=== PATIENT | male | born 1960 | race Two or more races ===

== ENCOUNTER 2016-11-30 09:09 | Inpatient (IN) | payer OTHER ==
[2016-11-30 10:25] VITALS: BMI 19.0
--- NOTE | 2016-11-30 11:29 | HP ---
CIWA Score - CIWA Score Nausea/Vomitin Muscle Tremors: 4-Moderate,w/Arms Extend Anxiety: 4-Mod. Anxious/Guarded Agitation: 4-Moderately Restless Paroxysmal Sweats: 3 Orientation: 0-Oriented Tacttile Disturbances: 1-Very Mild Itch/Numbness Auditory Disturbances: 0-None Visual Disturbances: 0-None Headache: 1-Very Mild CIWA-Ar Total Score: 20 Admission ROS S - HPI Chief Complaint: alcohol withdrawal sx Allergies/Adverse Reactions: Allergies Allergy/AdvReac Type Severity Reaction Status Date / Time No Known Allergies Allergy Verified 11/30/16 10:33 History of Present Illness: 56 yo m with h/o chronic alcoholism, nicotine depenedence <10/day was last at [facility] over 1 year ago but had h/o repeatedly signing out AMA. went to [facility] yesterday with hallucinations, was given benzodiazepines over night and transferred to inpatient for detox this AM. Patient wishes to complete detox PMHx s/p chemo for stomach ca 2000, s/p trauma w chronic pain back. hip and knee replacements, plates in jaw, r leg and facial fx, HTN, asthma , COPD, schizoaffective do, homeless at present, not taking medication as prescribed however bp WNL and will hold bp meds for now. when he does not drink develops FELIPE, no h/o seizures or DTS in past. reports recent wt loss and occasional blackouts. Exam Limitations: No Limitations - Ebola screening Have you traveled outside of the country in the last 21 days: No Have you had contact with anyone from an Ebola affected area: No Have you been sick,other than usual withdrawal symptoms: No Do you have a fever: No - Review of Systems Constitutional: Diaphoresis, Unintentional Wgt. Loss EENT: reports: No Symptoms Reported Respiratory: reports: Cough (smokers cough), SOB with Exertion, Wheezing (from asthma) Cardiac: reports: No Symptoms Reported GI: reports: Nausea, Poor Appetite, Poor Fluid Intake, Indigestion, Abdominal cramping : reports: No Symptoms Reported Musculoskeletal: reports: Back Pain (chroniclbp, disc disease,/arthritis), Joint Pain (right hip fx and r knee fx, s/p Trauma), Muscle Pain Integumentary: reports: Other (severe scarring right leg from trauma) Neuro: reports: Headache, Numbness, Paresthesia, Tingling, Tremors, Weakness Endocrine: reports: No Symptoms Reported Hematology: reports: No Symptoms Reported Psychiatric: reports: Judgement Intact, Mood/Affect Appropiate, Orientated x3, Anxious, Depressed Other Systems: Reviewed and Negative Patient History - Patient Medical History Hx Anemia: No Hx Asthma: Yes Hx Chronic Obstructive Pulmonary Disease (COPD): Yes Hx Cancer: Yes (STOMACH CHEMO RX.?) Hx Cardiac Disorders: No Hx Congestive Heart Failure: No Hx Hypertension: Yes Hx Hypercholesterolemia: No Hx Pacemaker: No HX Cerebrovascular Accident: No Hx Seizures: No Hx Dementia: No Hx Diabetes: No Hx Gastrointestinal Disorders: No Hx Liver Disease: No Hx Genitourinary Disorders: No Hx Sexually Transmitted Disorders: No Hx Renal Disease (ESRD): No Hx Thyroid Disease: No Hx Human Immunodeficiency Virus (HIV): No Hx Hepatitis C: No Hx Depression: Yes Hx Suicide Attempt: No Hx Bipolar Disorder: No Hx Schizophrenia: No - Patient Surgical History Past Surgical History: Yes Hx Neurologic Surgery: No Hx Cataract Extraction: No Hx Cardiac Surgery: No Hx Lung Surgery: No Hx Breast Surgery: No Hx Breast Biopsy: No Hx Abdominal Surgery: No Hx Appendectomy: No Hx Cholecystectomy: No Hx Genitourinary Surgery: No Hx Section: No Hx Orthopedic Surgery: Yes (R hip and R knee replacement) Other Surgical History: FX. JAW S/P PLATE AND SCREWS Anesthesia Reaction: No - PPD History Previous Implant?: Yes Documented Results: Negative w/proof Implanted On Prior [facility] Admission?: Yes Date: 04/27/15 Results: 0 mm PPD to be Administered?: Yes - Reproductive History Patient is a Female of Child Bearing Age (11 -55 yrs old): No Patient : No - Smoking Cessation Smoking history: Current every day smoker Have you smoked in the past 12 months: Yes Aproximately how many cigarettes per day: 10 Cigars Per Day: 0 Hx Chewing Tobacco Use: No Initiated information on smoking cessation: Yes 'Breaking Loose' booklet given: 11/30/16 - Substance & Tx. History Hx Alcohol Use: Yes Hx Substance Use: Yes Substance Use Type: Alcohol, Opiates Hx Substance Use Treatment: Yes ([facility] 1 year ago) - Substances Abused Alcohol Route: Oral Frequency: Daily Amount used: beer(12-24 oz cans)/vodka 2pints Age of first use: 11 Date of Last Use: 11/29/16 Marijuana/Hashish Route: Smoking Frequency: Daily Amount used: $20 Age of first use: 11 Date of Last Use: 11/28/16 Family Disease History - Family Disease History Family Disease History: CA: Mother (STOMACH), Sister (STOMACH) Admission Physical Exam [facility] - Vital Signs Vital Signs: Vital Signs - 24 hr 11/30/16 10:22 Temperature 96.8 F L Pulse Rate 81 Respiratory 18 Rate Blood Pressure 134/81 - Physical General Appearance: Yes: Disheveled, Mild Distress, Alcohol on Breath, Thin, Tremorous, Irritable, Sweating, Anxious HEENTM: Yes: EOMI, Hearing grossly Normal, Normal ENT Inspection, Normal Voice, AKIN, Pharynx Normal, Other (abrasions r forehead, no sign of infection) Respiratory: Yes: Within Normal Limits, Chest Non-Tender, Lungs Clear, Normal Breath Sounds, No Respiratory Distress, No Accessory Muscle Use Neck: Yes: Within Normal Limits, No masses,lesions,Nodules, Supple, Trachea in good position Breast: Yes: Breast Exam Deferred Cardiology: Yes: Within Normal Limits, Regular Rhythm, Regular Rate, S1, S2 Abdominal: Yes: Within Normal Limits, Normal Bowel Sounds, Non Tender, Flat Genitourinary: Yes: Within Normal Limits Back: Yes: Decreased Range of Motion, Muscle Spasm, Vertebral Tenderness Musculoskeletal: Yes: full range of Motion, Gait Steady, Pelvis Stable, Back pain, Joint Stiffness Extremities: Yes: Normal Capillary Refill, Normal Inspection, Normal Range of Motion, Non-Tender, Tremors (felt), Other (scarring r leg) Neurological: Yes: infrastructure consultant 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 NML intact, Fully Oriented, Alert, Motor Strength 5/5, Normal Response, Depressed Affect Integumentary: Yes: Normal Color, Dry, Warm Lymphatic: Yes: Within Normal Limits - Addiitonal Findings: alcohol withdrawal sx - Diagnostic (1) Alcohol dependence with uncomplicated withdrawal Current Visit: Yes Status: Chronic (2) Drug-induced mood disorder Current Visit: Yes Status: Acute (3) Marihuana dependence Current Visit: Yes Status: Chronic (4) Alcohol-induced sleep disorder Current Visit: No Status: Chronic (5) Asthma Current Visit: No Status: Chronic Qualifiers: Asthma severity: mild intermittent Asthma complication type: uncomplicated (6) COPD (chronic obstructive pulmonary disease) Current Visit: Yes Status: Chronic Qualifiers: Chronic bronchitis type: simple (7) Injury of left lower extremity Current Visit: No Status: Chronic Qualifiers: Encounter type: sequela Qualified Code(s): S89.92XS - Unspecified injury of left lower leg, sequela; S89.92XS - Unspecified injury of left lower leg, sequela (8) Nicotine dependence Current Visit: No Status: Chronic Qualifiers: Nicotine product type: cigarettes Substance use status: uncomplicated Qualified Code(s): F17.210 - Nicotine dependence, cigarettes, uncomplicated ; F17.210 - Nicotine dependence, cigarettes, uncomplicated (9) Schizoaffective disorder Current Visit: Yes Status: Chronic (10) Syncope Current Visit: No Status: Chronic (11) Weight loss Current Visit: Yes Status: Acute BHS Breath Alcohol Content Breath Alcohol Content: 0.184 Urine Drug Screen - Results Drug Screen Negative: No Urine Drug Screen Results: THC-Marijuana, BZO-Benzodiazepines
[2016-11-30] MEDS ORDERED: P-EPHED 60MG/TRIPROLIDI 2.5MG TABLET PO PRN (11:34)
[2016-11-30] MEDS ORDERED: MAGNESIUM HYDROX 2400MG/30ML ORAL SUSPENSION 30 ML CUP PO PRN (11:34)
[2016-11-30] MEDS ORDERED: MAG HYDROX/AL HYDROX/SIMETH 30 ML UNIT-DOSE CUP PO PRN (11:34)
[2016-11-30] MEDS ORDERED: NICOTINE POLACRILEX 2 MG GUM BUC PRN (11:34)
[2016-11-30] MEDS ORDERED: MENTHOL/PHENOL 1 EACH UD MM PRN (11:34)
[2016-11-30] MEDS ORDERED: guaiFENesin/D-METHORPHAN HB 10 ML UNIT-DOSE CUPS PO PRN (11:34)
[2016-11-30] MEDS ORDERED: MAGNESIUM CITRATE 300 ML BOTTLE PO PRN (11:34)
[2016-11-30] MEDS ORDERED: LOPERAMIDE HCL 2 MG CAPSULE PO PRN (11:34)
[2016-11-30] MEDS ORDERED: IBUPROFEN 400 MG TABLET (FP) PO PRN (11:34)
[2016-11-30] MEDS ORDERED: hydrOXYzine PAMOATE 50 MG CAPSULE (FP) PO PRN (11:34)
[2016-11-30] MEDS ORDERED: ALBUTEROL SO4 18 GM HFA INHALER IH PRN (11:36)
[2016-11-30] MEDS ORDERED: ALBUTEROL SO4 2.5/IPRATROPIUM 0.5 INH SOL 3 ML VIAL.NEB. NEB PRN (11:53)
[2016-11-30] MEDS: chlordiazePOXIDE HCL 25 MG CAPSULE PO PRN (13:10)
[2016-11-30] MEDS: BUDESONIDE/FORMETEROL FUMARATE 160/4.5 mcg INHALER IH SCH ×2 (13:10→22:10)
[2016-11-30] MEDS: NICOTINE 14 MG/24 HOURS TOPICAL PATCH TD SCH (13:13)
[2016-11-30] MEDS: BACITRACIN 15 GM TUBE TOPICAL OINTMENT TP SCH (13:14)
[2016-11-30 17:53] LABS: URINE APPEARANCE SLCLOUDY; URINE BILIRUBIN NEGATIVE (NEGATIVE); URINE BLOOD 1+ (NEGATIVE); URINE COLOR YELLOW; URINE GLUCOSE (UA) NEGATIVE (NEGATIVE); URINE KETONE 1+ (NEGATIVE); URINE LEUK ESTERASE NEGATIVE (NEGATIVE); URINE NITRITE NEGATIVE (NEGATIVE); URINE PROTEIN NEGATIVE (NEGATIVE); URINE UROBILINOGEN NEGATIVE mg/dL (0.2-1.0)
[2016-11-30 17:57] LABS: URINE MUCUS RARE; URINE WBC 2 /hpf (3-5)
[2016-11-30] MEDS: chlordiazePOXIDE HCL 25 MG CAPSULE PO SCH ×2 (18:06→22:12)
[2016-11-30] MEDS: ACETAMINOPHEN 325 MG TABLET (FP) PO PRN (20:16)
[2016-11-30] MEDS: THIAMINE HCL 100 MG TABLET (FP) PO SCH (22:10)
[2016-11-30] MEDS: diphenhydrAMINE HCL 50 MG CAPSULE PO PRN (22:13)
[2016-12-01] MEDS: chlordiazePOXIDE HCL 25 MG CAPSULE PO SCH ×4 (05:55→22:16)
[2016-12-01 10:12] LABS: MCH 28.9 pg (25.7-33.7); MCHC 33.9 g/dl (32.0-35.9); MEAN CELL VOLUME 85.4 fl (80-96); MEAN PLT VOLUME 8.6 fl (7.5-11.1); PLATELET COUNT 288 K/MM3 (134-434); RDW 16.1 % (11.9-15.9); WHITE BLOOD COUNT 5.2 K/mm3 (4.0-10.0)
[2016-12-01] MEDS: PRENATAL VITAMINS W/ FOLIC ACID TABLET (FP) PO SCH (10:19)
[2016-12-01] MEDS: BUDESONIDE/FORMETEROL FUMARATE 160/4.5 mcg INHALER IH SCH ×3 (10:19→22:16)
[2016-12-01] MEDS: NICOTINE 14 MG/24 HOURS TOPICAL PATCH TD SCH (10:20)
[2016-12-01 10:32] LABS: ALBUMIN 3.4 g/dl (3.4-5.0); ALK PHOS 74 U/L (45-117); ANION GAP 4 (8-16); BILIRUBIN,TOTAL 0.9 mg/dL (0.2-1.0); CALCIUM 8.9 mg/dL (8.5-10.1); CO2 30 mmol/L (21-32); CREATININE 0.8 mg/dL (0.7-1.3); GLUCOSE,RANDOM 88 mg/dL (74-106); SGOT/AST 15 U/L (15-37); SGPT/ALT 20 U/L (12-78); TOT PROT 6.7 g/dl (6.4-8.2)
--- NOTE | 2016-12-01 11:05 | PN ---
S CIWA - CIWA Score Nausea/Vomitin Muscle Tremors: 4-Moderate,w/Arms Extend Anxiety: 4-Mod. Anxious/Guarded Agitation: 4-Moderately Restless Paroxysmal Sweats: 3 Orientation: 0-Oriented Tacttile Disturbances: 1-Very Mild Itch/Numbness Auditory Disturbances: 0-None Visual Disturbances: 0-None Headache: 1-Very Mild CIWA-Ar Total Score: 20 BHS Progress Note (SOAP) Subjective: nausea, sweats, interrupted sleep, anxeity, tremors Objective: 12/01/16 11:02 Vital Signs - 8 hr 12/01/16 12/01/16 12/01/16 03:24 06:20 09:00 Temperature 96.9 F L 97.6 F Pulse Rate 78 76 Respiratory 20 18 18 Rate Blood Pressure 169/95 152/92 Laboratory Tests 11/30/16 12/01/16 12/01/16 17:00 07:30 07:30 WBC 5.2 RBC 3.75 L Hgb 10.8 L D Hct 32.0 L MCV 85.4 MCH 28.9 MCHC 33.9 RDW 16.1 H D Plt Count 288 MPV 8.6 Sodium 141 Potassium 3.7 Chloride 107 Carbon Dioxide 30 Anion Gap 4 L BUN 22 H D Creatinine 0.8 Creat Clearance w eGFR > 60 Random Glucose 88 Calcium 8.9 Total Bilirubin 0.9 D AST 15 D ALT 20 D Alkaline Phosphatase 74 Total Protein 6.7 Albumin 3.4 Urine Color Yellow Urine Appearance Slcloudy Urine pH 5.0 Ur Specific [place] >= 1.030 H Urine Protein Negative Urine Glucose (UA) Negative Urine Ketones 1+ H Urine Blood 1+ H Urine Nitrite Negative Urine Bilirubin Negative Urine Urobilinogen Negative Urine RBC None Urine WBC 2 Ur Epithelial Cells Rare Urine Mucus Rare hypertensive, anemia Assessment: 12/01/16 11:02 withdrawal sx, anemai, hypertension Plan: cont detox, fluids, start iron supplements with laxative at night, ensure
[2016-12-01] MEDS: BACITRACIN 15 GM TUBE TOPICAL OINTMENT TP SCH (11:19)
--- NOTE | 2016-12-01 12:02 | EKG ---
Test Reason : Blood Pressure : / mmHG Vent. Rate : 088 BPM Atrial Rate : 088 BPM P-R Int : 132 ms QRS Dur : 096 ms QT Int : 384 ms P-R-T Axes : 080 068 078 degrees QTc Int : 464 ms NORMAL SINUS RHYTHM MODERATE VOLTAGE CRITERIA FOR LVH, MAY BE NORMAL VARIANT BORDERLINE ECG NO PREVIOUS ECGS AVAILABLE Confirmed by SHANTEL INMAN MD ([id number]) on 12/01/2016 12:01:57 PM Referred By: Confirmed By:SHANTEL INMAN MD
[2016-12-01] MEDS: BACITRACIN 0.9 GM PACKET TP SCH (12:08)
--- NOTE | 2016-12-01 12:26 | CONSULT ---
[facility] Psychiatric Consult - Data Date of interview: 12/01/16 Admission source: [facility] Identifying data: Another admission to [facility] for this 56 y/o AA male seeking detox treatment on for alcohol and marijuana dependence.Patient is in a common-law relationship,no children of his own,domiciled,unemployed and supported on Public Assistance. Substance Abuse History: Discussed with the patient in this session.Confirmed. Smoking Cessation. Smoking history: Current every day smoker. Have you smoked in the past 12 months: Yes. Aproximately how many cigarettes per day: 10. Cigars Per Day: 0. Hx Chewing Tobacco Use: No. Initiated information on smoking cessation: Yes. 'Breaking Loose' booklet given: 11/30/16. - Substance & Tx. History. Hx Alcohol Use: Yes. Hx Substance Use: Yes. Substance Use Type : Alcohol, Opiates. Hx Substance Use Treatment: Yes ([facility] 1 year ago). - Substances Abused. Alcohol. Route: Oral. Frequency: Daily. Amount used: beer(12-24 oz cans)/vodka 2pints. Age of first use: 11. Date of Last Use: . Marijuana/Hashish. Route: Smoking. Frequency: Daily. Amount used: $20. Age of first use: 11. Date of Last Use: 11/28/16 Medical History: Bronchial asthma,hypertension,COPD,GERD,lower back pain,past history of chemotherapy for gastric cancer (2000),orthosurgery for fracture of right leg + facial bones (plates and screws still in jaw) and a history of right hip + knee replacements. Psychiatric History: Extended history of psychiatric illness.Diagnosed with Schizoaffective Disorder.Prescribed abilify 10 mg/day (confirmed by pharmacy claims of 11/24/16 at [facility]).No prior history of psychiatric hospitalizations.OPD care is reportedly dispensed at [facility] in the [place].Mr Ham endorses a history of chronic insomnia and he indicates that 50 mg of seroquel at bedtime is an effective intervention.No history of suicide attempts. Physical/Sexual Abuse/Trauma History: No reported history of abuse. Additional Comment: Urine Drug Screen Results: THC-Marijuana, BZO- Benzodiazepines.Noted. Mental Status Exam - Mental Status Exam Alert and Oriented to: Time, Place, Person Cognitive Function: Good Patient Appearance: Unkempt, Disheveled Mood: Nervous, Withdrawn Affect: Mood Congruent Patient Behavior: Fatigued, Cooperative (marginally cooperative) Speech Pattern: Clear Voice Loudness: Normal Thought Process: Goal Oriented Thought Disorder: Not Present Hallucinations: Denies Suicidal Ideation: Denies Homicidal Ideation: Denies Insight/Judgement: Poor Sleep: Poorly, Difficulty falling asleep (wants seroquel) Appetite: Fair Gait/Station: Other (not observed : patient stayed in bed through interview) Psychiatric Findings - Problem List ([place]ph[place] 1, 2,3) (1) Alcohol dependence with uncomplicated withdrawal Current Visit: Yes Status: Acute (2) Marihuana dependence Current Visit: Yes Status: Acute (3) Nicotine dependence Current Visit: Yes Status: Acute Qualifiers: Nicotine product type: cigarettes Substance use status: uncomplicated Qualified Code(s): F17.210 - Nicotine dependence, cigarettes, uncomplicated ; F17.210 - Nicotine dependence, cigarettes, uncomplicated (4) Substance induced mood disorder Current Visit: Yes Status: Acute (5) Schizoaffective disorder Current Visit: Yes Status: Chronic Comment: Self-report. (6) Weight loss Current Visit: Yes Status: Chronic (7) COPD (chronic obstructive pulmonary disease) Current Visit: Yes Status: Chronic Qualifiers: Chronic bronchitis type: simple (8) Asthma Current Visit: Yes Status: Chronic Qualifiers: Asthma severity: mild intermittent Asthma complication type: uncomplicated (9) Insomnia Current Visit: Yes Status: Acute - Initial Treatment Plan Initial Treatment Plan: Psychoeducation.Detoxification in progress.Seroquel 50 mg po hs + abilify 10 mg po daily.Side effects/benefits of tese two drugs are discussed with patient.He is in agreement with this plan of care.Observation.NO need for scripts at discharge (last refills dated 11/24/16 from [facility] provider).
[2016-12-01 14:45] LABS: HIV 1 & 2 AB NEGATIVE; HIV 1 AGp24 NEGATIVE
[2016-12-01] MEDS: THIAMINE HCL 100 MG TABLET (FP) PO SCH (22:14)
[2016-12-01] MEDS: diphenhydrAMINE HCL 50 MG CAPSULE PO PRN (22:15)
[2016-12-01] MEDS: ARIPiprazole 10 MG TABLET PO SCH (22:15)
[2016-12-02] MEDS: chlordiazePOXIDE HCL 25 MG CAPSULE PO SCH ×2 (06:02→10:21)
[2016-12-02] MEDS ORDERED: CYCLOBENZAPRINE HCL 10 MG TABLET (FP) PO PRN (09:10)
[2016-12-02] MEDS ORDERED: ONDANSETRON *ODT* 4 MG TABLET SL PRN (09:11)
[2016-12-02] MEDS ORDERED: ALBUTEROL SO4 2.5/IPRATROPIUM 0.5 INH SOL 3 ML VIAL.NEB. NEB PRN (10:15)
[2016-12-02] MEDS: NICOTINE 14 MG/24 HOURS TOPICAL PATCH TD SCH (10:21)
[2016-12-02] MEDS: BACITRACIN 0.9 GM PACKET TP SCH (10:21)
[2016-12-02] MEDS: PRENATAL VITAMINS W/ FOLIC ACID TABLET (FP) PO SCH (10:21)
[2016-12-02] MEDS: BUDESONIDE/FORMETEROL FUMARATE 160/4.5 mcg INHALER IH SCH ×2 (10:22→22:09)
--- NOTE | 2016-12-02 11:50 | PN ---
[facility] CIWA - CIWA Score Nausea/Vomitin-No Nausea/No Vomiting Muscle Tremors: None Anxiety: 5 Agitation: 4-Moderately Restless Paroxysmal Sweats: No Perspiration Orientation: 0-Oriented Tacttile Disturbances: 3-Moderate Itch/Numb/Burn Auditory Disturbances: 2-Mild Harshness/Frighten Visual Disturbances: 2-Mild Sensitivity Headache: 0-None Present CIWA-Ar Total Score: 16 S Progress Note (SOAP) Subjective: Body Aches, Interrupted sleep, Anxious, Stomach Cramping, Diarrhea. Objective: PT. A & O X 3, OBSERVED AMBULATING ON UNIT. NO ACUTE DISTRESS. PT. DENIES CHEST PAIN. PT. OBSERVED COUGHING WHILE AMBULATING ON UNIT. O2: 91% (ROOM AIR). LUNG SOUNDS AUSCULTATED CLEAR AND EQUAL BILATERALLY. PT. REPORTS HISTORY OF ASTHMA AND COPD. PATIENT ALSO REPORTS HISTORY OF LOW 02 SATURATION LEVEL. 12/02/16 11:46 Vital Signs Temperature 97.1 F L 12/02/16 09:21 Pulse Rate 92 H 12/02/16 09:21 Respiratory Rate 20 12/02/16 09:21 Blood Pressure 151/102 12/02/16 09:21 O2 Sat by Pulse Oximetry (%) Laboratory Tests 11/30/16 12/01/16 12/01/16 17:00 07:30 07:30 WBC 5.2 RBC 3.75 L Hgb 10.8 L D Hct 32.0 L MCV 85.4 MCH 28.9 MCHC 33.9 RDW 16.1 H D Plt Count 288 MPV 8.6 Sodium Potassium Chloride Carbon Dioxide Anion Gap BUN Creatinine Creat Clearance w eGFR Random Glucose Calcium Total Bilirubin AST ALT Alkaline Phosphatase Total Protein Albumin Urine Color Yellow Urine Appearance Slcloudy Urine pH 5.0 Ur Specific [place] >= 1.030 H Urine Protein Negative Urine Glucose (UA) Negative Urine Ketones 1+ H Urine Blood 1+ H Urine Nitrite Negative Urine Bilirubin Negative Urine Urobilinogen Negative Urine RBC None Urine WBC 2 Ur Epithelial Cells Rare Urine Mucus Rare RPR Titer HIV 1&2 Antibody Screen Negative HIV P24 Antigen Negative 12/01/16 12/01/16 07:30 07:30 WBC RBC Hgb Hct MCV MCH MCHC RDW Plt Count MPV Sodium 141 Potassium 3.7 Chloride 107 Carbon Dioxide 30 Anion Gap 4 L BUN 22 H D Creatinine 0.8 Creat Clearance w eGFR > 60 Random Glucose 88 Calcium 8.9 Total Bilirubin 0.9 D AST 15 D ALT 20 D Alkaline Phosphatase 74 Total Protein 6.7 Albumin 3.4 Urine Color Urine Appearance Urine pH Ur Specific [place] Urine Protein Urine Glucose (UA) Urine Ketones Urine Blood Urine Nitrite Urine Bilirubin Urine Urobilinogen Urine RBC Urine WBC Ur Epithelial Cells Urine Mucus RPR Titer Nonreactive HIV 1&2 Antibody Screen HIV P24 Antigen LABS NOTED. 12/02/16 11:47 Assessment: 12/02/16 11:48 WITHDRAWAL SYMPTOMS. ANEMIA, HYPERTENSION. Plan: CONTINUE DETOX. FEOSOL, 325 MG PO BIDWM. DUONEB QID. DUONEB PRN BETWEEN 12 MIDNIGTH AND 8:00 AM. INCREASE DAILY PO FLUID INTAKE.
[2016-12-02] MEDS: ACETAMINOPHEN 325 MG TABLET (FP) PO PRN (12:21)
[2016-12-02] MEDS: ALBUTEROL SO4 2.5/IPRATROPIUM 0.5 INH SOL 3 ML VIAL.NEB. NEB SCH ×3 (15:22→23:55)
[2016-12-02] MEDS: chlordiazePOXIDE 5 MG CAPSULE PO SCH ×2 (17:02→22:12)
[2016-12-02] MEDS ORDERED: FERROUS SO4 325 MG TABLET (FP) PO SCH (17:30)
[2016-12-02] MEDS: diphenhydrAMINE HCL 50 MG CAPSULE PO PRN (22:10)
[2016-12-02] MEDS: ARIPiprazole 10 MG TABLET PO SCH (22:10)
[2016-12-02 22:12] VITALS: BP 126/69; PULSE 87; TEMP 97.1
[2016-12-02] MEDS: THIAMINE HCL 100 MG TABLET (FP) PO SCH (22:13)
[2016-12-03] MEDS: chlordiazePOXIDE HCL 25 MG CAPSULE PO PRN (02:33)
[2016-12-03] MEDS: diphenhydrAMINE HCL 50 MG CAPSULE PO PRN (02:33)
[2016-12-03] MEDS: chlordiazePOXIDE 5 MG CAPSULE PO SCH (05:38)
--- NOTE | 2016-12-03 07:24 | DS ---
[facility] Detox Discharge Summary Admission Date: 11/30/16 Discharge Date: 12/03/16 - History Present History: Alcohol Dependence, Cannabis Dependence Pertinent Past History: ASTHMA COPD HTN NICOTINE DEPENDENCE - Physical Exam Results Vital Signs: Vital Signs Temperature 97.1 F L 12/02/16 22:12 Pulse Rate 87 12/02/16 22:12 Respiratory Rate 18 12/03/16 03:30 Blood Pressure 126/69 12/02/16 22:12 O2 Sat by Pulse Oximetry (%) Pertinent Admission Physical Exam Findings: WITHDRAWAL SX'S - Treatment Hospital Course: Discharged Condition Good Patient has Accepted a Rehab Referral to: [facility] - Medication Discharge Medications: Ambulatory Orders Albuterol Sulfate Inhaler - [Ventolin HFA Inhaler -] 2 inh PO Q4H PRN 04/16/14 Amlodipine Besylate [Norvasc -] 5 mg PO DAILY 04/16/14 Budesonide/Formeterol Fumarate [SYMBICORT 160/4.5mcg -] 1 inh PO BID 04/16/14 Hydrochlorothiazide [Hctz -] 25 mg PO DAILY 04/25/15 Aripiprazole [Abilify] 10 mg PO DAILY #30 tablet 08/20/15 Quetiapine Fumarate "Xr" [Seroquel Xr -] 50 mg PO HS #30 tablet 10/11/15 - AMA Did Patient Leave Against Medical Advice: Yes (RISK OF ABRUPTLY DC TXMENT D/W CLIENT. PT. VERBALIZED UNDERSTANDING. )
[2016-12-03] MEDS ORDERED: chlordiazePOXIDE HCL 10 MG CAPSULE PO SCH (17:00)
== END 2016-12-03 05:00 | disposition left against medical advice (07) | DRG 770 ==
LOC: YASAS 09:09 → Y3N 10:59
PROVIDERS: ADMIT Internal Medicine; ATTEND Internal Medicine
PROC: HZ2ZZZZ Detoxification Services for Substance Abuse Treatment (ICD-10-PCS; principal; 2016-11-30)
DX: F10.230 Alcohol dependence with withdrawal, uncomplicated (principal); F10.282 Alcohol dependence with alcohol-induced sleep disorder; F12.20 Cannabis dependence, uncomplicated; F17.210 Nicotine dependence, cigarettes, uncomplicated; F19.24 Other psychoactive substance dependence with psychoactive substance-induced mood disorder; F25.9 Schizoaffective disorder, unspecified; J45.20 Mild intermittent asthma, uncomplicated; J44.9 Chronic obstructive pulmonary disease, unspecified; I10 Essential (primary) hypertension; D64.9 Anemia, unspecified; G47.00 Insomnia, unspecified; Z85.028 Personal history of other malignant neoplasm of stomach; Z92.21 Personal history of antineoplastic chemotherapy; Z96.641 Presence of right artificial hip joint; Z96.651 Presence of right artificial knee joint; Z86.79 Personal history of other diseases of the circulatory system; Z87.898 Personal history of other specified conditions
CPT/HCPCS: 36415; 80053; 81003; 81015; 85027; 86593; 87389; 93005; 93010; 94640

== ENCOUNTER 2017-01-24 10:07 | Inpatient (IN) | payer OTHER ==
[2017-01-24 10:31] VITALS: BMI 19.6
--- NOTE | 2017-01-24 10:59 | HP ---
CIWA Score - CIWA Score Nausea/Vomitin-Mild Nausea/No Vomiting Muscle Tremors: 4-Moderate,w/Arms Extend Anxiety: 4-Mod. Anxious/Guarded Agitation: 1-Slight > Activity Paroxysmal Sweats: 1-Minimal Palms Moist Orientation: 1-Uncertain about Date Tacttile Disturbances: 1-Very Mild Itch/Numbness Auditory Disturbances: 1-Very Mild Visual Disturbances: 1-Very Mild Sensitivity Headache: 1-Very Mild CIWA-Ar Total Score: 16 Admission ROS BHS - HPI Chief Complaint: I'm tired, I want detox, I want to stop drinking Allergies/Adverse Reactions: Allergies Allergy/AdvReac Type Severity Reaction Status Date / Time No Known Allergies Allergy Verified 01/24/17 11:06 History of Present Illness: 56 yo gentleman here for detox from alcohol - previously here 11/30/16 - did not f/u with aftercare upon discharge. No seizures but does have black outs. Exam Limitations: Clinical Condition - Ebola screening Have you traveled outside of the country in the last 21 days: No Have you had contact with anyone from an Ebola affected area: No Have you been sick,other than usual withdrawal symptoms: No Do you have a fever: No - Review of Systems Constitutional: Loss of Appetite, Malaise, Changes in sleep EENT: reports: Blurred Vision Respiratory: reports: Cough Cardiac: reports: No Symptoms Reported GI: reports: Nausea : reports: Frequency Musculoskeletal: reports: No Symptoms Reported Integumentary: reports: No Symptoms Reported Neuro: reports: Headache Endocrine: reports: No Symptoms Reported Hematology: reports: No Symptoms Reported Psychiatric: reports: Judgement Intact, Mood/Affect Appropiate, Anxious Other Systems: Reviewed and Negative Patient History - Patient Medical History Hx Anemia: No Hx Asthma: Yes Hx Chronic Obstructive Pulmonary Disease (COPD): Yes Hx Cancer: Yes (STOMACH CHEMO RX. 2000) Hx Cardiac Disorders: No Hx Congestive Heart Failure: No Hx Hypertension: Yes Hx Hypercholesterolemia: No Hx Pacemaker: No HX Cerebrovascular Accident: No Hx Seizures: No Hx Dementia: No Hx Diabetes: No Hx Gastrointestinal Disorders: No Hx Liver Disease: No Hx Genitourinary Disorders: No Hx Sexually Transmitted Disorders: No Hx Renal Disease (ESRD): No Hx Thyroid Disease: No Hx Human Immunodeficiency Virus (HIV): No Hx Hepatitis C: No Hx Depression: Yes (on meds) Hx Suicide Attempt: No Hx Bipolar Disorder: No Hx Schizophrenia: Yes (states 'that's what they say') - Patient Surgical History Past Surgical History: Yes Hx Neurologic Surgery: No Hx Cataract Extraction: No Hx Cardiac Surgery: No Hx Lung Surgery: No Hx Breast Surgery: No Hx Breast Biopsy: No Hx Abdominal Surgery: No Hx Appendectomy: No Hx Cholecystectomy: No Hx Genitourinary Surgery: No Hx Section: No Hx Orthopedic Surgery: Yes (R hip and R knee replacement) Other Surgical History: FX. JAW S/P PLATE AND SCREWS Anesthesia Reaction: No - PPD History Previous Implant?: Yes Documented Results: Negative w/proof Date: 12/02/16 Results: 0 mm PPD to be Administered?: No - Reproductive History Patient is a Female of Child Bearing Age (11 -55 yrs old): No (male) - Smoking Cessation Smoking history: Current every day smoker Have you smoked in the past 12 months: Yes Aproximately how many cigarettes per day: 10 Cigars Per Day: 0 Hx Chewing Tobacco Use: No Initiated information on smoking cessation: Yes 'Breaking Loose' booklet given: 01/24/17 (give on floor) - Substance & Tx. History Hx Alcohol Use: Yes Hx Substance Use: Yes Substance Use Type: Alcohol, Marijuana Hx Substance Use Treatment: Yes (detox, rehab) - Substances Abused Alcohol Route: Oral Frequency: Daily Amount used: six pack 25 oz beer; 2 pints liquor Age of first use: 12 Date of Last Use: 01/24/17 Marijuana/Hashish Route: Smoking Frequency: Daily Amount used: 1 bag Age of first use: 12 Date of Last Use: 01/24/17 Family Disease History - Family Disease History Family Disease History: CA: Mother (, stomach cancer), Sister ( , stomach cancer), Other: Father (, ? unknown cause, etoh) Admission Physical Exam BHS - Vital Signs Vital Signs: Vital Signs - 24 hr 01/24/17 10:29 Temperature 98 F Pulse Rate 87 Respiratory 18 Rate Blood Pressure 140/94 - Physical General Appearance: Yes: Nourished, Appropriately Dressed, Mild Distress, Thin HEENTM: Yes: Hearing grossly Normal, Normocephalic, Normal Voice, Pharynx Normal Respiratory: Yes: Normal Breath Sounds, No Respiratory Distress Neck: Yes: No masses,lesions,Nodules, Supple Breast: Yes: Breast Exam Deferred Cardiology: Yes: Regular Rhythm, Regular Rate Abdominal: Yes: Flat, Soft Genitourinary: Yes: Frequency Back: Yes: Normal Inspection Musculoskeletal: Yes: Gait Steady, Joint Stiffness Extremities: Yes: Normal Inspection Neurological: Yes: Alert, Normal Mood/Affect, Normal Response Integumentary: Yes: Normal Color, Warm Lymphatic: Yes: Within Normal Limits - Diagnostic (1) Alcohol dependence with uncomplicated withdrawal Current Visit: Yes Status: Chronic (2) Marihuana dependence Current Visit: Yes Status: Chronic (3) Nicotine dependence Current Visit: Yes Status: Chronic Qualifiers: Nicotine product type: cigarettes Substance use status: uncomplicated Qualified Code(s): F17.210 - Nicotine dependence, cigarettes, uncomplicated (4) Asthma Current Visit: Yes Status: Chronic Qualifiers: Asthma severity: mild Asthma persistence: intermittent Asthma complication type: uncomplicated Qualified Code(s): J45.20 - Mild intermittent asthma, uncomplicated (5) COPD (chronic obstructive pulmonary disease) Current Visit: Yes Status: Chronic Qualifiers: Chronic bronchitis type: unspecified (6) HTN (hypertension) Current Visit: Yes Status: Acute Qualifiers: Hypertension type: essential hypertension Qualified Code(s): I10 - Essential (primary) hypertension (7) History of left hip replacement Current Visit: Yes Status: Chronic (8) History of knee replacement Current Visit: Yes Status: Chronic Qualifiers: Laterality: right Qualified Code(s): Z96.651 - Presence of right artificial knee joint Cleared for Admission BHS - Detox or Rehab [facility] Level of Care: Medically Managed Detox Regimen/Protocol: Librium [facility] Breath Alcohol Content Breath Alcohol Content: 0.184 Urine Drug Screen - Results Drug Screen Negative: No Urine Drug Screen Results: THC-Marijuana
[2017-01-24] MEDS ORDERED: MAG HYDROX/AL HYDROX/SIMETH 30 ML UNIT-DOSE CUP PO PRN (11:05)
[2017-01-24] MEDS ORDERED: MENTHOL/PHENOL 1 EACH UD MM PRN (11:05)
[2017-01-24] MEDS ORDERED: guaiFENesin/D-METHORPHAN HB 10 ML UNIT-DOSE CUPS PO PRN (11:05)
[2017-01-24] MEDS ORDERED: chlordiazePOXIDE HCL 25 MG CAPSULE PO PRN (11:05)
[2017-01-24] MEDS ORDERED: MAGNESIUM HYDROX 2400MG/30ML ORAL SUSPENSION 30 ML CUP PO PRN (11:05)
[2017-01-24] MEDS ORDERED: IBUPROFEN 400 MG TABLET (FP) PO PRN (11:05)
[2017-01-24] MEDS ORDERED: NICOTINE POLACRILEX 4 MG GUM BUC PRN (11:05)
[2017-01-24] MEDS ORDERED: P-EPHED 60MG/TRIPROLIDI 2.5MG TABLET PO PRN (11:05)
[2017-01-24] MEDS ORDERED: hydrOXYzine PAMOATE 50 MG CAPSULE (FP) PO PRN (11:05)
[2017-01-24] MEDS ORDERED: ACETAMINOPHEN 325 MG TABLET (FP) PO PRN (11:05)
[2017-01-24] MEDS ORDERED: LOPERAMIDE HCL 2 MG CAPSULE PO PRN (11:05)
[2017-01-24] MEDS ORDERED: MAGNESIUM CITRATE 300 ML BOTTLE PO PRN (11:05)
[2017-01-24] MEDS ORDERED: ALBUTEROL SO4 18 GM HFA INHALER IH PRN (11:06)
[2017-01-24] MEDS: amLODIPine BESYLATE 5 MG TABLET (FP) PO SCH (12:11)
[2017-01-24] MEDS: HYDROCHLOROTHIAZIDE 25 MG TABLET (FP) PO SCH (12:11)
[2017-01-24] MEDS ORDERED: chlordiazePOXIDE HCL 25 MG CAPSULE PO ONE (13:00)
[2017-01-24] MEDS: chlordiazePOXIDE HCL 25 MG CAPSULE PO SCH ×2 (17:28→22:44)
--- NOTE | 2017-01-24 18:03 | PN ---
S Progress Note Note: Psychiatry Attending's note : Approached earlier for psychiatric interview. Declined." I am tired.Some other time."
[2017-01-24 20:10] LABS: URINE APPEARANCE CLEAR; URINE BILIRUBIN NEGATIVE (NEGATIVE); URINE BLOOD NEGATIVE (NEGATIVE); URINE COLOR LTYELLOW; URINE GLUCOSE (UA) NEGATIVE (NEGATIVE); URINE KETONE NEGATIVE (NEGATIVE); URINE NITRITE NEGATIVE (NEGATIVE); URINE PROTEIN NEGATIVE (NEGATIVE); URINE UROBILINOGEN NEGATIVE mg/dL (0.2-1.0)
[2017-01-24 21:45] LABS: URINE LEUK ESTERASE Negative (NEGATIVE)
[2017-01-24] MEDS: THIAMINE HCL 100 MG TABLET (FP) PO SCH (22:44)
[2017-01-24] MEDS: BUDESONIDE/FORMETEROL FUMARATE 160/4.5 mcg INHALER IH SCH (22:44)
[2017-01-25] MEDS: chlordiazePOXIDE HCL 25 MG CAPSULE PO SCH ×4 (06:00→23:22)
--- NOTE | 2017-01-25 08:53 | CONSULT ---
[facility] Psychiatric Consult - Data Date of interview: 01/25/17 Admission source: Self-referred Identifying data: Mr Ham is s 56 years old Black male in a common-law relationship, unemployed on public assistance, domiciled Substance Abuse History: Reports history of alcohol and marijuana use. He started drinking and smoking marijuana at age 12, consumes 2 pints of liquor, a 6pk of beer and one bag of marijuana daily. Last drank alcohol and smoked marijuana on 01/24/17 Medical History: Significant for bronchial asthma/COPD, hypertension, GERD, lower back pain, past history of chemotherapy for gastric cancer (2000), orthosurgery for fracture of right leg + facial bones (plates and screws still in jaw) and right hip + knee replacements. Smokes nicotine 10 cigarettes daily Psychiatric History: Patient reports that he was diagnosed with Schizophrenia years ago. Denies history of previous psychiatric hospitalization or suicidal attempt. Reports non-compliance with OPD care([facility]) but has his psychotropic medications(Abilify 10 mg/day & Seroquel 50 mg/hs) prescribed by his primary care physician. At present, reports feeling depressed and anxious and sleeping poorly without Seroquel Physical/Sexual Abuse/Trauma History: Denies history of verbal, physical or sexual abuse as well as DV relationship Additional Comment: Reports history of 2-3 previous midemeanor arrests. No probation currently Mental Status Exam - Mental Status Exam Alert and Oriented to: Time, Place, Person Mood: Depressed, Anxious Affect: Appropriate Patient Behavior: Cooperative Speech Pattern: Clear Voice Loudness: Normal Thought Process: Intact, Goal Oriented Hallucinations: Denies Suicidal Ideation: Denies Homicidal Ideation: Denies Insight/Judgement: Fair Sleep: Poorly Appetite: Poor Muscle strength/Tone: Normal Gait/Station: Normal Psychiatric Findings - Problem List ([place] 1, 2,3) (1) Schizoaffective disorder Current Visit: No Status: Chronic Comment: Self-report. (2) Substance induced mood disorder Current Visit: No Status: Acute (3) Substance-induced sleep disorder Current Visit: Yes Status: Acute (4) Alcohol dependence with uncomplicated withdrawal Current Visit: Yes Status: Chronic (5) Cannabis dependence Current Visit: Yes Status: Acute (6) Nicotine dependence Current Visit: Yes Status: Chronic Qualifiers: Nicotine product type: cigarettes Substance use status: uncomplicated Qualified Code(s): F17.210 - Nicotine dependence, cigarettes, uncomplicated (7) HTN (hypertension) Current Visit: Yes Status: Acute Qualifiers: Hypertension type: essential hypertension Qualified Code(s): I10 - Essential (primary) hypertension (8) Asthma Current Visit: Yes Status: Chronic Qualifiers: Asthma severity: mild Asthma persistence: intermittent Asthma complication type: uncomplicated Qualified Code(s): J45.20 - Mild intermittent asthma, uncomplicated (9) COPD (chronic obstructive pulmonary disease) Current Visit: Yes Status: Chronic Qualifiers: Chronic bronchitis type: unspecified (10) History of knee replacement Current Visit: Yes Status: Chronic Qualifiers: Laterality: right Qualified Code(s): Z96.651 - Presence of right artificial knee joint (11) History of left hip replacement Current Visit: Yes Status: Chronic - Initial Treatment Plan Initial Treatment Plan: 1) Continue Abilify 10 mg po daily and Seroquel 50 mg po HS. 2) Continue inpatient detoxification
--- NOTE | 2017-01-25 10:10 | PN ---
S CIWA - CIWA Score Nausea/Vomitin Muscle Tremors: 3 Anxiety: 3 Agitation: 2 Paroxysmal Sweats: 1-Minimal Palms Moist Orientation: 0-Oriented Tacttile Disturbances: 1-Very Mild Itch/Numbness Auditory Disturbances: 1-Very Mild Visual Disturbances: 0-None Headache: 2-Mild CIWA-Ar Total Score: 16 BHS Progress Note (SOAP) Subjective: alert,irritable,anxious,tremor,interrupted sleep,pain in the body Objective: 01/25/17 10:08 Vital Signs Temperature 98.1 F 01/25/17 06:03 Pulse Rate 91 H 01/25/17 06:03 Respiratory Rate 18 01/25/17 06:03 Blood Pressure 111/55 01/25/17 06:03 O2 Sat by Pulse Oximetry (%) ekg nsr,normal ecg Laboratory Last Values Manual Slide Review No Result Required. 01/25/17 07:40 Urine Color Ltyellow 01/24/17 19:00 Urine Appearance Clear 01/24/17 19:00 Urine pH 6.0 (5.0-8.0) 01/24/17 19:00 Ur Specific [place] 1.009 (1.001-1.035) 01/24/17 19:00 Urine Protein Negative (NEGATIVE) 01/24/17 19:00 Urine Glucose (UA) Negative (NEGATIVE) 01/24/17 19:00 Urine Ketones Negative (NEGATIVE) 01/24/17 19:00 Urine Blood Negative (NEGATIVE) 01/24/17 19:00 Urine Nitrite Negative (NEGATIVE) 01/24/17 19:00 Urine Bilirubin Negative (NEGATIVE) 01/24/17 19:00 Urine Urobilinogen Negative mg/dL (0.2-1.0) 01/24/17 19:00 Ur Leukocyte Esterase Negative (NEGATIVE) 01/24/17 19:00 labs pending Assessment: 01/25/17 10:09 withdrawal symptom Plan: continue detox
[2017-01-25 10:15] LABS: MCH 28.2 pg (25.7-33.7); MCHC 33.6 g/dl (32.0-35.9); MEAN CELL VOLUME 83.7 fl (80-96); MEAN PLT VOLUME 8.6 fl (7.5-11.1); PLATELET COUNT 368 K/MM3 (134-434); RDW 16.8 % (11.9-15.9); WHITE BLOOD COUNT 6.5 K/mm3 (4.0-10.0)
[2017-01-25 10:26] LABS: ALBUMIN 3.9 g/dl (3.4-5.0); ALK PHOS 89 U/L (45-117); ANION GAP 7 (8-16); BILIRUBIN,TOTAL 1.1 mg/dL (0.2-1.0); CALCIUM 9.2 mg/dL (8.5-10.1); CO2 30 mmol/L (21-32); CREATININE 0.9 mg/dL (0.7-1.3); GLUCOSE,RANDOM 96 mg/dL (74-106); SGOT/AST 16 U/L (15-37); SGPT/ALT 25 U/L (12-78); TOT PROT 7.5 g/dl (6.4-8.2)
[2017-01-25] MEDS: PRENATAL VITAMINS W/ FOLIC ACID TABLET (FP) PO SCH (10:47)
[2017-01-25] MEDS: BUDESONIDE/FORMETEROL FUMARATE 160/4.5 mcg INHALER IH SCH ×2 (10:47→23:22)
[2017-01-25] MEDS: amLODIPine BESYLATE 5 MG TABLET (FP) PO SCH (10:47)
[2017-01-25] MEDS: HYDROCHLOROTHIAZIDE 25 MG TABLET (FP) PO SCH (10:47)
[2017-01-25] MEDS: ARIPiprazole 10 MG TABLET PO SCH (11:39)
[2017-01-25 11:46] LABS: HIV 1 & 2 AB NEGATIVE; HIV 1 AGp24 NEGATIVE
[2017-01-25] MEDS: THIAMINE HCL 100 MG TABLET (FP) PO SCH (23:22)
[2017-01-26] MEDS: chlordiazePOXIDE HCL 25 MG CAPSULE PO SCH ×2 (06:07→10:36)
--- NOTE | 2017-01-26 08:31 | PN ---
S Progress Note Note: pt states "I could do this at home I want to go now." pt refused to listen to staff and stay to complete detox. pt signed out AMA.
--- NOTE | 2017-01-26 08:33 | DS ---
[facility] Detox Discharge Summary Admission Date: 01/24/17 Discharge Date: 01/26/17 - History Present History: Alcohol Dependence, Cannabis Dependence - Physical Exam Results Vital Signs: Vital Signs Temperature 99 F 01/26/17 06:11 Pulse Rate 92 H 01/26/17 06:11 Respiratory Rate 18 01/26/17 06:11 Blood Pressure 123/82 01/26/17 06:11 O2 Sat by Pulse Oximetry (%) - Medication Discharge Medications: Ambulatory Orders Albuterol Sulfate Inhaler - [Ventolin HFA Inhaler -] 2 inh PO Q4H PRN 04/16/14 Amlodipine Besylate [Norvasc -] 5 mg PO DAILY 04/16/14 Budesonide/Formeterol Fumarate [SYMBICORT 160/4.5mcg -] 1 inh PO BID 04/16/14 Hydrochlorothiazide [Hctz -] 25 mg PO DAILY 04/25/15 Aripiprazole [Abilify] 10 mg PO DAILY #30 tablet 08/20/15 Quetiapine Fumarate "Xr" [Seroquel Xr -] 50 mg PO HS #30 tablet 10/11/15 - Diagnosis (1) Cannabis dependence Current Visit: Yes Status: Chronic (2) HTN (hypertension) Current Visit: Yes Status: Chronic Qualifiers: Hypertension type: essential hypertension Qualified Code(s): I10 - Essential (primary) hypertension (3) Substance-induced sleep disorder Current Visit: Yes Status: Acute (4) Alcohol dependence with uncomplicated withdrawal Current Visit: Yes Status: Chronic (5) Asthma Current Visit: Yes Status: Chronic Qualifiers: Asthma severity: mild Asthma persistence: intermittent Asthma complication type: uncomplicated Qualified Code(s): J45.20 - Mild intermittent asthma, uncomplicated (6) COPD (chronic obstructive pulmonary disease) Current Visit: Yes Status: Chronic Qualifiers: Chronic bronchitis type: unspecified (7) History of knee replacement Current Visit: Yes Status: Chronic Qualifiers: Laterality: right Qualified Code(s): Z96.651 - Presence of right artificial knee joint (8) History of left hip replacement Current Visit: Yes Status: Chronic (9) [place] dependence Current Visit: Yes Status: Chronic (10) Nicotine dependence Current Visit: Yes Status: Chronic Qualifiers: Nicotine product type: cigarettes Substance use status: uncomplicated Qualified Code(s): F17.210 - Nicotine dependence, cigarettes, uncomplicated (11) Drug-induced mood disorder Current Visit: No Status: Acute (12) Insomnia Current Visit: No Status: Acute (13) Substance induced mood disorder Current Visit: No Status: Acute (14) Alcohol-induced sleep disorder Current Visit: No Status: Chronic (15) Injury of left lower extremity Current Visit: No Status: Chronic Qualifiers: Encounter type: sequela Qualified Code(s): S89.92XS - Unspecified injury of left lower leg, sequela (16) Schizoaffective disorder Current Visit: No Status: Chronic (17) Syncope Current Visit: No Status: Chronic (18) Weight loss Current Visit: No Status: Chronic - AMA Did Patient Leave Against Medical Advice: Yes
[2017-01-26 09:30] VITALS: BP 117/95; PULSE 113; TEMP 97.7
[2017-01-26] MEDS: ARIPiprazole 10 MG TABLET PO SCH (10:35)
[2017-01-26] MEDS: HYDROCHLOROTHIAZIDE 25 MG TABLET (FP) PO SCH (10:36)
[2017-01-26] MEDS: BUDESONIDE/FORMETEROL FUMARATE 160/4.5 mcg INHALER IH SCH (10:36)
[2017-01-26] MEDS: PRENATAL VITAMINS W/ FOLIC ACID TABLET (FP) PO SCH (10:36)
[2017-01-26] MEDS: amLODIPine BESYLATE 5 MG TABLET (FP) PO SCH (10:36)
[2017-01-26] MEDS ORDERED: chlordiazePOXIDE 5 MG CAPSULE PO SCH (17:00)
--- NOTE | 2017-01-27 01:03 | EKG ---
Test Reason : Blood Pressure : / mmHG Vent. Rate : 075 BPM Atrial Rate : 075 BPM P-R Int : 128 ms QRS Dur : 094 ms QT Int : 406 ms P-R-T Axes : 077 061 079 degrees QTc Int : 453 ms NORMAL SINUS RHYTHM NORMAL ECG WHEN COMPARED WITH ECG OF 30-NOV-2016 12:31, NO SIGNIFICANT CHANGE WAS FOUND Confirmed by BEKAH DESOUZA MD ([id number]) on 01/27/2017 1:03:31 AM Referred By: Confirmed By:BEKAH DESOUZA MD
[2017-01-27] MEDS ORDERED: chlordiazePOXIDE HCL 10 MG CAPSULE PO SCH (17:00)
== END 2017-01-26 09:00 | disposition left against medical advice (07) | DRG 770 ==
LOC: YASAS 10:07 → Y6N 11:28
PROVIDERS: ADMIT Internal Medicine; ATTEND Internal Medicine
PROC: HZ2ZZZZ Detoxification Services for Substance Abuse Treatment (ICD-10-PCS; principal; 2017-01-24)
DX: F10.230 Alcohol dependence with withdrawal, uncomplicated (principal); F12.20 Cannabis dependence, uncomplicated; F10.282 Alcohol dependence with alcohol-induced sleep disorder; F17.210 Nicotine dependence, cigarettes, uncomplicated; F19.24 Other psychoactive substance dependence with psychoactive substance-induced mood disorder; F19.282 Other psychoactive substance dependence with psychoactive substance-induced sleep disorder; F25.9 Schizoaffective disorder, unspecified; I10 Essential (primary) hypertension; J45.20 Mild intermittent asthma, uncomplicated; J44.9 Chronic obstructive pulmonary disease, unspecified; G47.00 Insomnia, unspecified; Z85.028 Personal history of other malignant neoplasm of stomach; Z86.79 Personal history of other diseases of the circulatory system; Z96.651 Presence of right artificial knee joint; Z96.642 Presence of left artificial hip joint; Z87.898 Personal history of other specified conditions
CPT/HCPCS: 36415; 80053; 81003; 85027; 86593; 87389; 93005; 93010

== ENCOUNTER 2017-03-09 10:03 | Inpatient (IN) | payer OTHER ==
[2017-03-09 13:38] VITALS: BMI 20.3
--- NOTE | 2017-03-09 14:40 | HP ---
CIWA Score - CIWA Score Nausea/Vomitin-No Nausea/No Vomiting Muscle Tremors: 4-Moderate,w/Arms Extend Anxiety: 4-Mod. Anxious/Guarded Agitation: 4-Moderately Restless Paroxysmal Sweats: 3 Orientation: 0-Oriented Tacttile Disturbances: 0-None Auditory Disturbances: 0-None Visual Disturbances: 0-None Headache: 0-None Present CIWA-Ar Total Score: 15 Admission ROS BHS - HPI Chief Complaint: I need to get help. Allergies/Adverse Reactions: Allergies Allergy/AdvReac Type Severity Reaction Status Date / Time No Known Allergies Allergy Verified 03/09/17 14:23 History of Present Illness: pt is a 56yr old male with a history of alcohol dependence seeking detox for treatment. Exam Limitations: No Limitations - Ebola screening Have you traveled outside of the country in the last 21 days: No (N) Have you had contact with anyone from an Ebola affected area: No Have you been sick,other than usual withdrawal symptoms: No Do you have a fever: No - Review of Systems Constitutional: Loss of Appetite, Night Sweats, Unintentional Wgt. Loss EENT: reports: No Symptoms Reported Respiratory: reports: No Symptoms reported Cardiac: reports: No Symptoms Reported GI: reports: Poor Appetite, Poor Fluid Intake : reports: No Symptoms Reported Musculoskeletal: reports: Back Pain Integumentary: reports: Flushing, Sweating Neuro: reports: Tingling, Tremors Endocrine: reports: Excessive Sweating, Flushing, Intolerance to Cold, Intolerance to Heat Hematology: reports: No Symptoms Reported Psychiatric: reports: Judgement Intact, Mood/Affect Appropiate, Orientated x3, Agitated, Anxious Other Systems: Reviewed and Negative Patient History - Patient Medical History Hx Anemia: No Hx Asthma: Yes Hx Chronic Obstructive Pulmonary Disease (COPD): Yes Hx Cancer: Yes (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) Hx Cardiac Disorders: No Hx Congestive Heart Failure: No Hx Hypertension: Yes Hx Hypercholesterolemia: No Hx Pacemaker: No HX Cerebrovascular Accident: No Hx Seizures: No Hx Dementia: No Hx Diabetes: No Hx Gastrointestinal Disorders: No Hx Liver Disease: No Hx Genitourinary Disorders: No Hx Sexually Transmitted Disorders: No Hx Renal Disease (ESRD): No Hx Thyroid Disease: No Hx Human Immunodeficiency Virus (HIV): No (negative) Hx Hepatitis C: No (negative) Hx Depression: Yes (on meds) Hx Suicide Attempt: No (denies) Hx Bipolar Disorder: No Hx Schizophrenia: No Other Medical History: insomnia - Patient Surgical History Past Surgical History: Yes Hx Neurologic Surgery: No Hx Cataract Extraction: No Hx Cardiac Surgery: No Hx Lung Surgery: No Hx Breast Surgery: No Hx Breast Biopsy: No Hx Abdominal Surgery: No Hx Appendectomy: No Hx Cholecystectomy: No Hx Genitourinary Surgery: No Hx Section: No Hx Orthopedic Surgery: Yes (R hip and R knee replacement) Other Surgical History: FX. JAW S/P PLATE AND SCREWS Anesthesia Reaction: No - PPD History Previous Implant?: Yes Documented Results: Negative w/proof Date: 12/02/16 Results: 0 mm PPD to be Administered?: No - Reproductive History Patient is a Female of Child Bearing Age (11 -55 yrs old): No - Smoking Cessation Smoking history: Current every day smoker Have you smoked in the past 12 months: Yes Aproximately how many cigarettes per day: 10 Cigars Per Day: 0 Hx Chewing Tobacco Use: No Initiated information on smoking cessation: Yes 'Breaking Loose' booklet given: 03/09/17 - Substance & Tx. History Hx Alcohol Use: Yes Hx Substance Use: Yes Substance Use Type: Alcohol, Heroin Hx Substance Use Treatment: Yes (last detox 12/2016) - Substances Abused Alcohol-vodka/beer Route: Oral Frequency: Daily Amount used: 1-2 pts./2-6p pks. Age of first use: 13 Date of Last Use: 03/09/17 Family Disease History - Family Disease History Family Disease History: CA: Mother (, stomach cancer), Sister ( , stomach cancer), Other: Father (, ? unknown cause, etoh) Admission Physical Exam S - Vital Signs Vital Signs: Vital Signs - 24 hr 03/09/17 13:36 Temperature 98.3 F Pulse Rate 93 H Respiratory 18 Rate Blood Pressure 150/87 - Physical General Appearance: Yes: Appropriately Dressed, Moderate Distress, Thin, Tremorous, Irritable, Sweating, Anxious HEENTM: Yes: Hearing grossly Normal, Normal Voice Respiratory: Yes: Lungs Clear, Normal Breath Sounds, No Respiratory Distress Neck: Yes: No masses,lesions,Nodules Breast: Yes: Within Normal Limits Cardiology: Yes: Regular Rhythm, Regular Rate, S1, S2 Abdominal: Yes: Normal Bowel Sounds, Non Tender, Soft Genitourinary: Yes: Within Normal Limits Back: Yes: Normal Inspection Musculoskeletal: Yes: full range of Motion, Back pain Extremities: Yes: Normal Capillary Refill, Normal Inspection, Non-Tender, Tremors Neurological: Yes: Fully Oriented, Alert, Normal Response Integumentary: Yes: Normal Color, Diaphoresis Lymphatic: Yes: Within Normal Limits - Diagnostic (1) Alcohol dependence with uncomplicated withdrawal Current Visit: Yes Status: Chronic (2) Asthma Current Visit: Yes Status: Chronic Qualifiers: Asthma severity: mild Asthma persistence: unspecified Asthma complication type: uncomplicated Qualified Code(s): J45.909 - Unspecified asthma, uncomplicated (3) COPD (chronic obstructive pulmonary disease) Current Visit: Yes Status: Chronic Qualifiers: COPD type: chronic bronchitis Chronic bronchitis type: unspecified Qualified Code(s): J42 - Unspecified chronic bronchitis (4) Cannabis dependence Current Visit: Yes Status: Chronic (5) HTN (hypertension) Current Visit: Yes Status: Chronic Qualifiers: Hypertension type: essential hypertension Qualified Code(s): I10 - Essential (primary) hypertension (6) History of knee replacement Current Visit: No Status: Chronic Qualifiers: (7) History of left hip replacement Current Visit: No Status: Chronic (8) Nicotine dependence Current Visit: Yes Status: Chronic Qualifiers: Nicotine product type: cigarettes Substance use status: uncomplicated Qualified Code(s): F17.210 - Nicotine dependence, cigarettes, uncomplicated Cleared for Admission [facility] - Detox or Rehab [facility] Level of Care: Medically Managed Detox Regimen/Protocol: Librium [facility] Breath Alcohol Content Breath Alcohol Content: 0.011 Urine Drug Screen - Results Drug Screen Negative: No Urine Drug Screen Results: THC-Marijuana
[2017-03-09] MEDS ORDERED: P-EPHED 60MG/TRIPROLIDI 2.5MG TABLET PO PRN (14:47)
[2017-03-09] MEDS ORDERED: MENTHOL/PHENOL 1 EACH UD MM PRN (14:47)
[2017-03-09] MEDS ORDERED: MAGNESIUM CITRATE 300 ML BOTTLE PO PRN (14:47)
[2017-03-09] MEDS ORDERED: ACETAMINOPHEN 325 MG TABLET (FP) PO PRN (14:47)
[2017-03-09] MEDS ORDERED: guaiFENesin/D-METHORPHAN HB 10 ML UNIT-DOSE CUPS PO PRN (14:47)
[2017-03-09] MEDS ORDERED: NICOTINE POLACRILEX 4 MG GUM BC PRN (14:47)
[2017-03-09] MEDS ORDERED: MAG HYDROX/AL HYDROX/SIMETH 30 ML UNIT-DOSE CUP PO PRN (14:47)
[2017-03-09] MEDS ORDERED: chlordiazePOXIDE HCL 25 MG CAPSULE PO ONE (14:47)
[2017-03-09] MEDS ORDERED: MAGNESIUM HYDROX 2400MG/30ML ORAL SUSPENSION 30 ML CUP PO PRN (14:47)
[2017-03-09] MEDS ORDERED: IBUPROFEN 400 MG TABLET (FP) PO PRN (14:47)
[2017-03-09] MEDS ORDERED: chlordiazePOXIDE HCL 25 MG CAPSULE PO PRN (14:47)
[2017-03-09] MEDS ORDERED: LOPERAMIDE HCL 2 MG CAPSULE PO PRN (14:47)
[2017-03-09] MEDS ORDERED: ALBUTEROL SO4 18 GM HFA INHALER IH PRN (14:49)
[2017-03-09] MEDS: chlordiazePOXIDE HCL 25 MG CAPSULE PO SCH ×2 (17:37→22:30)
[2017-03-09] MEDS: hydrOXYzine PAMOATE 50 MG CAPSULE (FP) PO PRN (22:30)
[2017-03-09] MEDS: THIAMINE HCL 100 MG TABLET (FP) PO SCH (22:30)
[2017-03-09] MEDS: BUDESONIDE/FORMETEROL FUMARATE 160/4.5 mcg INHALER IH SCH (22:33)
[2017-03-10 05:06] LABS: URINE APPEARANCE TURBID; URINE BILIRUBIN NEGATIVE (NEGATIVE); URINE BLOOD NEGATIVE (NEGATIVE); URINE COLOR YELLOW; URINE GLUCOSE (UA) NEGATIVE (NEGATIVE); URINE KETONE 1+ (NEGATIVE); URINE LEUK ESTERASE NEGATIVE (NEGATIVE); URINE NITRITE NEGATIVE (NEGATIVE); URINE UROBILINOGEN 4.0 E.U/dl mg/dL (0.2-1.0)
[2017-03-10 05:19] LABS: URINE PROTEIN 1+ (NEGATIVE)
[2017-03-10 05:30] LABS: URINE MUCUS MODERATE
[2017-03-10] MEDS: chlordiazePOXIDE HCL 25 MG CAPSULE PO SCH ×4 (07:33→22:41)
--- NOTE | 2017-03-10 10:11 | PN ---
S CIWA - CIWA Score Nausea/Vomitin-No Nausea/No Vomiting Muscle Tremors: 4-Moderate,w/Arms Extend Anxiety: 3 Agitation: 3 Paroxysmal Sweats: 3 Orientation: 0-Oriented Tacttile Disturbances: 0-None Auditory Disturbances: 0-None Visual Disturbances: 0-None Headache: 1-Very Mild CIWA-Ar Total Score: 14 S Progress Note (SOAP) Subjective: headache agitation anxiety sweats body aches irritable Objective: 03/10/17 10:11 Vital Signs Temperature 97.7 F 03/10/17 06:00 Pulse Rate 75 03/10/17 06:00 Respiratory Rate 18 03/10/17 06:00 Blood Pressure 117/69 03/10/17 06:00 O2 Sat by Pulse Oximetry (%) Laboratory Tests 03/09/17 06:30 Urine Color Yellow Urine Appearance Turbid Urine pH 5.0 Ur Specific [place] 1.026 Urine Protein 1+ H Urine Glucose (UA) Negative Urine Ketones 1+ H Urine Blood Negative Urine Nitrite Negative Urine Bilirubin Negative Urine Urobilinogen 4.0 e.u/dl Ur Leukocyte Esterase Negative Urine WBC (Auto) None Urine RBC (Auto) 13 Urine Mucus Moderate labs pending aaox3 ambulating no acute distress Assessment: 03/10/17 10:23 withdrawal sx Plan: continue detox increase fluids labs pending
[2017-03-10] MEDS: HYDROCHLOROTHIAZIDE 25 MG TABLET (FP) PO SCH (10:12)
[2017-03-10] MEDS: PRENATAL VITAMINS W/ FOLIC ACID TABLET (FP) PO SCH (10:12)
[2017-03-10] MEDS: NICOTINE 21 MG/24 HOURS TOPICAL PATCH TD SCH (10:13)
[2017-03-10] MEDS: amLODIPine BESYLATE 5 MG TABLET (FP) PO SCH (10:13)
[2017-03-10] MEDS: BUDESONIDE/FORMETEROL FUMARATE 160/4.5 mcg INHALER IH SCH ×2 (10:14→22:41)
[2017-03-10 10:18] LABS: HEMATOCRIT 37.7 % (35.4-49); HEMOGLOBIN 12.4 GM/dL (11.7-16.9); MCH 28.4 pg (25.7-33.7); MCHC 32.9 g/dl (32.0-35.9); MEAN CELL VOLUME 86.4 fl (80-96); MEAN PLT VOLUME 9.8 fl (7.5-11.1); PLATELET COUNT 321 K/MM3 (134-434); RBC 4.37 M/mm3 (4.00-5.60); RDW 15.4 % (11.9-15.9); WHITE BLOOD COUNT 9.5 K/mm3 (4.0-10.0)
[2017-03-10 10:23] LABS: CHLORIDE 97 mmol/L (98-107); POTASSIUM 3.8 mmol/L (3.5-5.1); SODIUM 134 mmol/L (136-145)
[2017-03-10 10:36] LABS: ALBUMIN 4.4 g/dl (3.4-5.0); ALK PHOS 101 U/L (45-117); ANION GAP 13 (8-16); BLOOD UREA NITROGEN 15 mg/dL (7-18); CALCIUM 9.4 mg/dL (8.5-10.1); CO2 24 mmol/L (21-32); CREATININE 1.1 mg/dL (0.7-1.3); GLUCOSE,RANDOM 165 mg/dL (74-106); SGOT/AST 50 U/L (15-37); SGPT/ALT 45 U/L (12-78); TOT PROT 8.2 g/dl (6.4-8.2)
--- NOTE | 2017-03-10 11:37 | CONSULT ---
[facility] Psychiatric Consult - Data Date of interview: 03/10/17 Admission source: [facility] Identifying data: Pt. is a 56 year old male, single, without kids, homeless and unemployed. This is one of multiple admissions for patient. Pt. admitted to for alcohol dependence. Substance Abuse History: Following information confirmed with Mr. Ham: - Smoking Cessation. Smoking history: Current every day smoker. Have you smoked in the past 12 months: Yes. Aproximately how many cigarettes per day: 10. Cigars Per Day: 0. Hx Chewing Tobacco Use: No. Initiated information on smoking cessation: Yes. 'Breaking Loose' booklet given: 03/09/17. - Substance & Tx. History. Hx Alcohol Use: Yes. Hx Substance Use: Yes. Substance Use Type : Alcohol, Heroin. Hx Substance Use Treatment: Yes (last detox 12/2016). - Substances Abused. Alcohol-vodka/beer. Route: Oral. Frequency: Daily. Amount used: 1-2 pts./2-6p pks. Age of first use: 13. Date of Last Use: Psychiatric History: Pt. withdrawn and a poor historian. Pt. begun interview by stating "i'm not taking any medications." Pt denies h/o psychiatric hospitalization, suicide attempts, and OPC. Pt states he used to take abilify and seroquel but has not taken them "in a long time." States he had a diagnosis of schizophrenia but "that was a long time ago." States he used to get his prescriptions from his medical doctor. Physical/Sexual Abuse/Trauma History: Denies. Mental Status Exam - Mental Status Exam Alert and Oriented to: Time, Place, Person Cognitive Function: Fair Patient Appearance: Unkempt Mood: Withdrawn, Irritable Affect: Flat Patient Behavior: Guarded Speech Pattern: Delayed Voice Loudness: Normal Thought Process: Goal Oriented Thought Disorder: Not Present Hallucinations: Denies Suicidal Ideation: Denies Homicidal Ideation: Denies Insight/Judgement: Poor Sleep: Poorly Appetite: Fair Muscle strength/Tone: Normal Gait/Station: Normal Psychiatric Findings - Problem List ([place] 1, 2,3) (1) Alcohol dependence with uncomplicated withdrawal Current Visit: Yes Status: Acute (2) Cannabis dependence Current Visit: Yes Status: Chronic (3) Nicotine dependence Current Visit: Yes Status: Chronic Qualifiers: Nicotine product type: cigarettes Substance use status: uncomplicated Qualified Code(s): F17.210 - Nicotine dependence, cigarettes, uncomplicated (4) Schizophrenia Current Visit: No Status: Chronic Comment: Self reports. (5) Substance induced mood disorder Current Visit: No Status: Suspected - Initial Treatment Plan Initial Treatment Plan: Psychoeducation provided. Detoxification in progress. Pt. refusing psychotrophic medications. Will continue to monitor patient for psychiatric decompensation.
--- NOTE | 2017-03-10 15:19 | EKG ---
Test Reason : Blood Pressure : / mmHG Vent. Rate : 071 BPM Atrial Rate : 071 BPM P-R Int : 164 ms QRS Dur : 090 ms QT Int : 442 ms P-R-T Axes : 082 067 080 degrees QTc Int : 480 ms NORMAL SINUS RHYTHM PROLONGED QT ABNORMAL ECG WHEN COMPARED WITH ECG OF 24-JAN-2017 12:18, NO SIGNIFICANT CHANGE WAS FOUND Confirmed by Patrick Ignacio MD ([id number]) on 03/10/2017 3:19:01 PM Referred By: Confirmed By:Patrick Ignacio MD
[2017-03-10] MEDS: THIAMINE HCL 100 MG TABLET (FP) PO SCH (22:41)
[2017-03-10] MEDS: hydrOXYzine PAMOATE 50 MG CAPSULE (FP) PO PRN (22:41)
[2017-03-11] MEDS: chlordiazePOXIDE HCL 25 MG CAPSULE PO SCH ×2 (06:28→10:46)
--- NOTE | 2017-03-11 09:29 | PN ---
[facility] CIWA - CIWA Score Nausea/Vomitin-No Nausea/No Vomiting Muscle Tremors: 4-Moderate,w/Arms Extend Anxiety: 3 Agitation: 3 Paroxysmal Sweats: 3 Orientation: 0-Oriented Tacttile Disturbances: 0-None Auditory Disturbances: 0-None Visual Disturbances: 0-None Headache: 0-None Present CIWA-Ar Total Score: 13 S Progress Note (SOAP) Subjective: chills sweats interrupted sleep tired Objective: 03/11/17 09:23 Vital Signs Temperature 97.5 F L 03/11/17 06:26 Pulse Rate 66 03/11/17 06:26 Respiratory Rate 16 03/11/17 06:26 Blood Pressure 125/64 03/11/17 06:26 O2 Sat by Pulse Oximetry (%) Laboratory Tests 03/09/17 03/10/17 03/10/17 06:30 06:00 06:00 WBC 9.5 D RBC 4.37 Hgb 12.4 Hct 37.7 MCV 86.4 MCH 28.4 MCHC 32.9 RDW 15.4 Plt Count 321 MPV 9.8 D Sodium 134 L Potassium 3.8 Chloride 97 L Carbon Dioxide 24 Anion Gap 13 BUN 15 Creatinine 1.1 D Creat Clearance w eGFR > 60 Random Glucose 165 H D Calcium 9.4 Total Bilirubin 1.0 AST 50 H D ALT 45 D Alkaline Phosphatase 101 Total Protein 8.2 Albumin 4.4 Urine Color Yellow Urine Appearance Turbid Urine pH 5.0 Ur Specific [place] 1.026 Urine Protein 1+ H Urine Glucose (UA) Negative Urine Ketones 1+ H Urine Blood Negative Urine Nitrite Negative Urine Bilirubin Negative Urine Urobilinogen 4.0 e.u/dl Ur Leukocyte Esterase Negative Urine WBC (Auto) None Urine RBC (Auto) 13 Urine Mucus Moderate RPR Titer 03/10/17 06:00 WBC RBC Hgb Hct MCV MCH MCHC RDW Plt Count MPV Sodium Potassium Chloride Carbon Dioxide Anion Gap BUN Creatinine Creat Clearance w eGFR Random Glucose Calcium Total Bilirubin AST ALT Alkaline Phosphatase Total Protein Albumin Urine Color Urine Appearance Urine pH Ur Specific [place] Urine Protein Urine Glucose (UA) Urine Ketones Urine Blood Urine Nitrite Urine Bilirubin Urine Urobilinogen Ur Leukocyte Esterase Urine WBC (Auto) Urine RBC (Auto) Urine Mucus RPR Titer Nonreactive aaox3 lying in bed no acute distress Assessment: 03/11/17 09:23 withdrawal sx Plan: continue detox increase fluids
[2017-03-11] MEDS: HYDROCHLOROTHIAZIDE 25 MG TABLET (FP) PO SCH (10:46)
[2017-03-11] MEDS: PRENATAL VITAMINS W/ FOLIC ACID TABLET (FP) PO SCH (10:46)
[2017-03-11] MEDS: BUDESONIDE/FORMETEROL FUMARATE 160/4.5 mcg INHALER IH SCH ×2 (10:46→23:06)
[2017-03-11] MEDS: NICOTINE 21 MG/24 HOURS TOPICAL PATCH TD SCH (10:47)
[2017-03-11] MEDS: amLODIPine BESYLATE 5 MG TABLET (FP) PO SCH (11:43)
[2017-03-11] MEDS: chlordiazePOXIDE 5 MG CAPSULE PO SCH ×2 (18:46→23:03)
[2017-03-11] MEDS: THIAMINE HCL 100 MG TABLET (FP) PO SCH (23:03)
[2017-03-11] MEDS: hydrOXYzine PAMOATE 50 MG CAPSULE (FP) PO PRN (23:04)
[2017-03-12] MEDS: chlordiazePOXIDE 5 MG CAPSULE PO SCH ×2 (07:14→10:26)
[2017-03-12] MEDS: HYDROCHLOROTHIAZIDE 25 MG TABLET (FP) PO SCH (10:24)
[2017-03-12] MEDS: amLODIPine BESYLATE 5 MG TABLET (FP) PO SCH (10:24)
[2017-03-12] MEDS: PRENATAL VITAMINS W/ FOLIC ACID TABLET (FP) PO SCH (10:24)
[2017-03-12] MEDS: NICOTINE 21 MG/24 HOURS TOPICAL PATCH TD SCH (10:24)
[2017-03-12] MEDS: BUDESONIDE/FORMETEROL FUMARATE 160/4.5 mcg INHALER IH SCH ×2 (10:25→22:25)
--- NOTE | 2017-03-12 10:50 | PN ---
[facility] Progress Note (SOAP) Subjective: irritable sleepy sweats Objective: 03/12/17 10:49 Vital Signs Temperature 97.5 F L 03/12/17 10:10 Pulse Rate 84 03/12/17 10:10 Respiratory Rate 20 03/12/17 10:10 Blood Pressure 134/79 03/12/17 10:10 O2 Sat by Pulse Oximetry (%) aaox3 ambulating no acute distress Assessment: 03/12/17 10:49 withdrawal sx Plan: continue detox increase fluids d/c in am
[2017-03-12] MEDS: chlordiazePOXIDE HCL 10 MG CAPSULE PO SCH ×2 (17:54→22:26)
[2017-03-12] MEDS: THIAMINE HCL 100 MG TABLET (FP) PO SCH (22:25)
[2017-03-12] MEDS: hydrOXYzine PAMOATE 50 MG CAPSULE (FP) PO PRN (22:26)
[2017-03-13] MEDS: chlordiazePOXIDE HCL 10 MG CAPSULE PO SCH ×2 (06:00→11:45)
--- NOTE | 2017-03-13 09:22 | DS ---
[facility] Detox Discharge Summary Admission Date: 03/09/17 Discharge Date: 03/13/17 - History Present History: Alcohol Dependence, Cannabis Dependence Additional Comments: follow up with after care program as arrangement Pertinent Past History: asthma copd hypertension history of knee replacement history of left hip replacement nicotine dependence - Physical Exam Results Vital Signs: Vital Signs Temperature 96.8 F L 03/13/17 06:00 Pulse Rate 69 03/13/17 06:00 Respiratory Rate 18 03/13/17 06:00 Blood Pressure 109/71 03/13/17 06:00 O2 Sat by Pulse Oximetry (%) Pertinent Admission Physical Exam Findings: withdrawal symptom and finding - Treatment Hospital Course: Detox Protocol Followed, Detoxed Safely, Responded well, Discharged Condition Good - Medication Discharge Medications: Ambulatory Orders Albuterol Sulfate Inhaler - [Ventolin HFA Inhaler -] 2 inh PO Q4H PRN 04/16/14 Amlodipine Besylate [Norvasc -] 5 mg PO DAILY 04/16/14 Budesonide/Formeterol Fumarate [SYMBICORT 160/4.5mcg -] 1 inh PO BID 04/16/14 Hydrochlorothiazide [Hctz -] 25 mg PO DAILY 04/25/15 Aripiprazole [Abilify] 10 mg PO DAILY #30 tablet 08/20/15 Quetiapine Fumarate "Xr" [Seroquel Xr -] 50 mg PO HS #30 tablet 10/11/15 - Diagnosis (1) Alcohol dependence with uncomplicated withdrawal Current Visit: Yes Status: Chronic (2) History of right hip replacement Current Visit: Yes Status: Acute (3) Asthma Current Visit: Yes Status: Chronic Qualifiers: Asthma severity: mild Asthma persistence: unspecified Asthma complication type: uncomplicated Qualified Code(s): J45.909 - Unspecified asthma, uncomplicated (4) COPD (chronic obstructive pulmonary disease) Current Visit: Yes Status: Chronic Qualifiers: COPD type: chronic bronchitis Chronic bronchitis type: unspecified Qualified Code(s): J42 - Unspecified chronic bronchitis (5) HTN (hypertension) Current Visit: Yes Status: Chronic Qualifiers: Hypertension type: essential hypertension Qualified Code(s): I10 - Essential (primary) hypertension (6) History of knee replacement Current Visit: No Status: Chronic Qualifiers: - AMA Did Patient Leave Against Medical Advice: No
[2017-03-13] MEDS: amLODIPine BESYLATE 5 MG TABLET (FP) PO SCH (11:45)
[2017-03-13] MEDS: PRENATAL VITAMINS W/ FOLIC ACID TABLET (FP) PO SCH (11:46)
[2017-03-13] MEDS: NICOTINE 21 MG/24 HOURS TOPICAL PATCH TD SCH (11:46)
[2017-03-13] MEDS: HYDROCHLOROTHIAZIDE 25 MG TABLET (FP) PO SCH (11:46)
[2017-03-13] MEDS: BUDESONIDE/FORMETEROL FUMARATE 160/4.5 mcg INHALER IH SCH (11:47)
[2017-03-13 14:07] VITALS: BP 116/61; PULSE 83; TEMP 97.7
== END 2017-03-13 17:25 | disposition other institution (70) | DRG 775 ==
LOC: YASAS 10:03 → Y6N 15:05
PROVIDERS: ADMIT Internal Medicine; ATTEND Internal Medicine
PROC: HZ2ZZZZ Detoxification Services for Substance Abuse Treatment (ICD-10-PCS; principal; 2017-03-09)
DX: F10.230 Alcohol dependence with withdrawal, uncomplicated (principal); F12.20 Cannabis dependence, uncomplicated; F17.210 Nicotine dependence, cigarettes, uncomplicated; F19.24 Other psychoactive substance dependence with psychoactive substance-induced mood disorder; F20.9 Schizophrenia, unspecified; I10 Essential (primary) hypertension; J44.9 Chronic obstructive pulmonary disease, unspecified; J45.909 Unspecified asthma, uncomplicated; G47.00 Insomnia, unspecified; Z85.028 Personal history of other malignant neoplasm of stomach; Z96.641 Presence of right artificial hip joint; Z96.642 Presence of left artificial hip joint; Z96.659 Presence of unspecified artificial knee joint
CPT/HCPCS: 36415; 80053; 81003; 81015; 85027; 86593; 93005; 93010

== ENCOUNTER 2017-03-13 18:08 | Inpatient (IN) | payer OTHER ==
[2017-03-13] MEDS ORDERED: MAGNESIUM HYDROX 2400MG/30ML ORAL SUSPENSION 30 ML CUP PO PRN (19:16)
[2017-03-13] MEDS ORDERED: MENTHOL/PHENOL 1 EACH UD MM PRN (19:16)
[2017-03-13] MEDS ORDERED: IBUPROFEN 400 MG TABLET (FP) PO PRN (19:16)
[2017-03-13] MEDS ORDERED: P-EPHED 60MG/TRIPROLIDI 2.5MG TABLET PO PRN (19:16)
[2017-03-13] MEDS ORDERED: LOPERAMIDE HCL 2 MG CAPSULE PO PRN (19:16)
[2017-03-13] MEDS ORDERED: ACETAMINOPHEN 325 MG TABLET (FP) PO PRN (19:16)
[2017-03-13] MEDS ORDERED: guaiFENesin/D-METHORPHAN HB 10 ML UNIT-DOSE CUPS PO PRN (19:16)
[2017-03-13] MEDS ORDERED: MAGNESIUM CITRATE 300 ML BOTTLE PO PRN (19:16)
[2017-03-13] MEDS ORDERED: MAG HYDROX/AL HYDROX/SIMETH 30 ML UNIT-DOSE CUP PO PRN (19:16)
--- NOTE | 2017-03-13 19:18 | HP ---
[facility] Re[facility] Assess/Revision - Admission History Admitted to Rehab from: [facility] [place] Date of Admission to Rehab: 03/13/17 - Findings Detox History & Physical reviewed: Yes Concur with findings: Yes Comments/Additional Findings: ADMIT TO REHAB
--- NOTE | 2017-03-13 20:14 | PN ---
[facility] Progress Note Note: Psychiatry Attending's on-call note : Informed of patient's transfer to [address] [place] [address]. Asked to enter orders for seroquel and aripriprazole. Patient is already known to me from [address] [place] [address] (12/01/2016). Just completed detox ([address] [place] [address]). Was offered abilify + seroquel. Refused to take these psychotropic medications. Refer to proposal editor Tung of 03/10/16 for details. Ek[facility] reviewed : prolonged QT. Spoke to patient via telephone. NO seroquel or abilify tonight. Bronc Buster will meet with patient in AM. Further discussion of medications to follow.
[2017-03-13] MEDS: hydrOXYzine PAMOATE 50 MG CAPSULE (FP) PO PRN (21:54)
[2017-03-13] MEDS: THIAMINE HCL 100 MG TABLET (FP) PO SCH (21:54)
[2017-03-13] MEDS: BUDESONIDE/FORMETEROL FUMARATE 160/4.5 mcg INHALER IH SCH (22:22)
[2017-03-13] MEDS: ALBUTEROL SO4 18 GM HFA INHALER IH PRN (22:26)
[2017-03-14] MEDS: BUDESONIDE/FORMETEROL FUMARATE 160/4.5 mcg INHALER IH SCH ×2 (10:01→21:35)
[2017-03-14] MEDS: PRENATAL VITAMINS W/ FOLIC ACID TABLET (FP) PO SCH (10:02)
[2017-03-14] MEDS: HYDROCHLOROTHIAZIDE 25 MG TABLET (FP) PO SCH (10:02)
[2017-03-14] MEDS: amLODIPine BESYLATE 5 MG TABLET (FP) PO SCH (10:02)
[2017-03-14] MEDS: hydrOXYzine PAMOATE 50 MG CAPSULE (FP) PO PRN ×2 (10:04→21:34)
--- NOTE | 2017-03-14 19:49 | PN ---
[facility] Progress Note Note: Psychiatry Attending's on-call note : Met with patient. Issue : medication for insomnia. Seroquel not indicated (prolonged QT on current EKG). Trazodone 50 mg po hs (alternate).Ordered. Mr Ham reports prior exposure to that medication. Well tolerated and effective according to the patient. Made aware of risk of priapism.Consent (verbal) given. Patient has also agreed to resume aripriprazole . Requests a lesser dose (5 mg/day).Ordered as well. Side effects/benefits discussed. Diagnosis : Schizoaffective Disorder.
[2017-03-14] MEDS: traZODone HCL 50 MG TABLET (FP) PO SCH (21:34)
[2017-03-14] MEDS: THIAMINE HCL 100 MG TABLET (FP) PO SCH (21:34)
[2017-03-15] MEDS: hydrOXYzine PAMOATE 50 MG CAPSULE (FP) PO PRN ×2 (09:51→21:33)
[2017-03-15] MEDS: amLODIPine BESYLATE 5 MG TABLET (FP) PO SCH (09:51)
[2017-03-15] MEDS: PRENATAL VITAMINS W/ FOLIC ACID TABLET (FP) PO SCH (09:51)
[2017-03-15] MEDS: HYDROCHLOROTHIAZIDE 25 MG TABLET (FP) PO SCH (09:51)
[2017-03-15] MEDS: BUDESONIDE/FORMETEROL FUMARATE 160/4.5 mcg INHALER IH SCH ×2 (09:51→21:33)
[2017-03-15] MEDS: ARIPiprazole 5 MG TABLET (FP) PO SCH (09:51)
[2017-03-15] MEDS: THIAMINE HCL 100 MG TABLET (FP) PO SCH (21:33)
[2017-03-15] MEDS: traZODone HCL 50 MG TABLET (FP) PO SCH (21:33)
--- NOTE | 2017-03-16 07:09 | HP ---
Psychiatrist Admission - Data Date of interview: 03/16/17 Admission source: 6N Identifying data: This is the first [facility] admission for this 56 years old living as Black male, unemployed on public assistance, domiciled Medical History: Significant for bronchial asthma/COPD, hypertension, GERD, lower back pain, past history of chemotherapy for gastric cancer (2000), orthosurgery for fracture of right leg + facial bones (plates and screws still in jaw) and right hip + knee replacements. Smokes nicotine 10 cigarettes daily Psychiatric History: Told feature writer that he only saw psychiatrist whenever he was admitted to inpatient detox in this facility. He claims that he was never diagnosed with Schizophrenia though it is on his record. He does not know why his primary care physician prescribed him Abilify and Seroquel. According to record, patient is diagnosed with Schizophrenia and he is prescribed Abilify 10 mg po daily and Seroquel 50 mg po Hs by his primary care physician. Denies history of previous psychiatric hospitalization or suicidal attempt. Reportedly he was non-compliance with OPD care([facility]). At present, reports doing well but sleeping poorly Physical/Sexual Abuse/Trauma History: Denies history of verbal, physical or sexual abuse as well as DV relationship Additional Comment: Reports history of 2-3 previous midemeanor arrests. No probation currently Vital Signs: Vital Signs - 24 hr 03/15/17 03/15/17 03/16/17 07:20 10:17 00:30 Temperature 97.9 F Pulse Rate 71 86 Respiratory 16 18 Rate Blood Pressure 110/75 123/75 03/16/17 03/16/17 03:30 06:48 Temperature 98.1 F Pulse Rate 85 Respiratory 18 18 Rate Blood Pressure 116/77 Allergies/Adverse Reactions: Allergies Allergy/AdvReac Type Severity Reaction Status Date / Time No Known Allergies Allergy Verified 03/09/17 14:23 Date of last physical exam: 03/09/17 Concur with the findings of this exam: Yes - Substance Abuse/Tx History Hx Alcohol Use: Yes Hx Substance Use: No Substance Use Type: Alcohol (Started drinking alcohol at age 13, consumes one- two pints of vodka daily. Last drank on 03/09/17) Hx Substance Use Treatment: Yes (10 previous inpt detox admissiond @ [facility]) Mental Status Exam - Mental Status Exam Alert and Oriented to: Time, Place, Person Cognitive Function: Fair Patient Appearance: Disheveled Mood: Hopeful, Euthymic Affect: Appropriate Patient Behavior: Cooperative Speech Pattern: Clear Voice Loudness: Normal Thought Process: Intact Thought Disorder: Not Present Hallucinations: Denies Suicidal Ideation: Denies Homicidal Ideation: Denies Insight/Judgement: Fair Sleep: Poorly Appetite: Poor Muscle strength/Tone: Normal Gait/Station: Normal Psychiatric Findings - Problem List ([place] 1, 2,3) (1) Alcohol dependence Current Visit: Yes Status: Acute (2) Nicotine dependence Current Visit: No Status: Chronic Qualifiers: Nicotine product type: cigarettes Substance use status: uncomplicated Qualified Code(s): F17.210 - Nicotine dependence, cigarettes, uncomplicated (3) Schizoaffective disorder Current Visit: No Status: Chronic Comment: Self-report. (4) Schizophrenia Current Visit: No Status: Ruled-out Comment: Self reports. (5) Alcohol-induced sleep disorder Current Visit: No Status: Acute (6) History of right hip replacement Current Visit: No Status: Acute (7) Asthma Current Visit: No Status: Chronic Qualifiers: Asthma severity: mild Asthma persistence: unspecified Asthma complication type: uncomplicated Qualified Code(s): J45.909 - Unspecified asthma, uncomplicated (8) COPD (chronic obstructive pulmonary disease) Current Visit: No Status: Chronic Qualifiers: COPD type: chronic bronchitis Chronic bronchitis type: unspecified Qualified Code(s): J42 - Unspecified chronic bronchitis (9) HTN (hypertension) Current Visit: No Status: Chronic Qualifiers: Hypertension type: essential hypertension Qualified Code(s): I10 - Essential (primary) hypertension (10) History of knee replacement Current Visit: No Status: Chronic Qualifiers: (11) History of left hip replacement Current Visit: No Status: Chronic - Initial Treatment Plan Initial Treatment Plan: 1) Continue Abilify 10 mg po daily as ordered by Dr Bolden. 2) Start Trazadone 100 mg po HS for insomnia. 3) Monitor progress
[2017-03-16] MEDS: PRENATAL VITAMINS W/ FOLIC ACID TABLET (FP) PO SCH (09:28)
[2017-03-16] MEDS: amLODIPine BESYLATE 5 MG TABLET (FP) PO SCH (09:29)
[2017-03-16] MEDS: HYDROCHLOROTHIAZIDE 25 MG TABLET (FP) PO SCH (09:29)
[2017-03-16] MEDS: ARIPiprazole 5 MG TABLET (FP) PO SCH (09:29)
[2017-03-16] MEDS: BUDESONIDE/FORMETEROL FUMARATE 160/4.5 mcg INHALER IH SCH ×2 (09:30→21:29)
[2017-03-16] MEDS: THIAMINE HCL 100 MG TABLET (FP) PO SCH (21:28)
[2017-03-16] MEDS: traZODone HCL 100 MG TABLET (FP) PO SCH (21:29)
[2017-03-17] MEDS: ARIPiprazole 5 MG TABLET (FP) PO SCH (10:32)
[2017-03-17] MEDS: HYDROCHLOROTHIAZIDE 25 MG TABLET (FP) PO SCH (10:33)
[2017-03-17] MEDS: BUDESONIDE/FORMETEROL FUMARATE 160/4.5 mcg INHALER IH SCH ×2 (10:33→21:56)
[2017-03-17] MEDS: amLODIPine BESYLATE 5 MG TABLET (FP) PO SCH (10:33)
[2017-03-17] MEDS: PRENATAL VITAMINS W/ FOLIC ACID TABLET (FP) PO SCH (10:33)
[2017-03-17] MEDS ORDERED: PT OWN MED DRAWER 7, Y5N ONE (14:58)
[2017-03-17] MEDS: ALBUTEROL SO4 18 GM HFA INHALER IH PRN (14:59)
[2017-03-17] MEDS ORDERED: traZODone HCL 50 MG TABLET (FP) ONE (20:37)
[2017-03-17] MEDS: THIAMINE HCL 100 MG TABLET (FP) PO SCH (21:54)
[2017-03-17] MEDS: hydrOXYzine PAMOATE 50 MG CAPSULE (FP) PO PRN (21:54)
[2017-03-17] MEDS: traZODone HCL 100 MG TABLET (FP) PO SCH (21:55)
[2017-03-18] MEDS: amLODIPine BESYLATE 5 MG TABLET (FP) PO SCH (09:57)
[2017-03-18] MEDS: HYDROCHLOROTHIAZIDE 25 MG TABLET (FP) PO SCH (09:57)
[2017-03-18] MEDS: ARIPiprazole 5 MG TABLET (FP) PO SCH (09:57)
[2017-03-18] MEDS: PRENATAL VITAMINS W/ FOLIC ACID TABLET (FP) PO SCH (09:57)
[2017-03-18] MEDS: BUDESONIDE/FORMETEROL FUMARATE 160/4.5 mcg INHALER IH SCH ×2 (09:58→21:43)
[2017-03-18] MEDS: hydrOXYzine PAMOATE 50 MG CAPSULE (FP) PO PRN ×2 (09:58→21:43)
[2017-03-18] MEDS: THIAMINE HCL 100 MG TABLET (FP) PO SCH (21:43)
[2017-03-18] MEDS: traZODone HCL 100 MG TABLET (FP) PO SCH (21:43)
[2017-03-19 07:24] VITALS: TEMP 97.6
[2017-03-19] MEDS: amLODIPine BESYLATE 5 MG TABLET (FP) PO SCH (10:22)
[2017-03-19] MEDS: HYDROCHLOROTHIAZIDE 25 MG TABLET (FP) PO SCH (10:22)
[2017-03-19] MEDS: PRENATAL VITAMINS W/ FOLIC ACID TABLET (FP) PO SCH (10:22)
[2017-03-19] MEDS: BUDESONIDE/FORMETEROL FUMARATE 160/4.5 mcg INHALER IH SCH ×2 (10:23→22:41)
[2017-03-19] MEDS: ARIPiprazole 5 MG TABLET (FP) PO SCH (10:24)
[2017-03-19] MEDS: traZODone HCL 100 MG TABLET (FP) PO SCH (21:40)
[2017-03-19] MEDS: THIAMINE HCL 100 MG TABLET (FP) PO SCH (21:41)
[2017-03-20] MEDS: HYDROCHLOROTHIAZIDE 25 MG TABLET (FP) PO SCH (09:49)
[2017-03-20] MEDS: amLODIPine BESYLATE 5 MG TABLET (FP) PO SCH (09:49)
[2017-03-20] MEDS: PRENATAL VITAMINS W/ FOLIC ACID TABLET (FP) PO SCH (09:49)
[2017-03-20] MEDS: ARIPiprazole 5 MG TABLET (FP) PO SCH (09:50)
[2017-03-20] MEDS: BUDESONIDE/FORMETEROL FUMARATE 160/4.5 mcg INHALER IH SCH (09:52)
[2017-03-20 10:55] VITALS: BP 118/69; PULSE 88
--- NOTE | 2017-03-20 11:03 | PN ---
Psychiatric Progress Note Vital Signs: Vital Signs Period Temp Pulse Resp BP Sys/Lira Pulse Ox Last 24 Hr 97.6 F 74 16-18 129/72 Date of Session: 03/20/17 Chief Complaint:: discharge visit HPI: Patient addressed alcohol,nicotine dependence comorbid schizoaffective disorder and alcohol induced sleep disorder. ROS: WNL Current Medications: Active Medications Generic Name Dose Route Start Last Admin Trade Name Freq PRN Reason Stop Dose Admin Acetaminophen 650 mg 03/13/17 19:16 Tylenol - PO Q4H PRN FEVER Al Hydroxide/Mg Hydroxide 30 ml 03/13/17 19:16 Mylanta Oral Suspension - PO Q6H PRN DYSPEPSIA Albuterol Sulfate 2 puff 03/13/17 19:16 03/17/17 14:59 Ventolin Hfa Inhaler - IH 2 puff Q4H PRN Administration SHORTNESS OF BREATH Amlodipine Besylate 5 mg 03/14/17 10:00 03/20/17 09:49 Norvasc - PO 5 mg DAILY RAYSA Administration Aripiprazole 5 mg 03/15/17 10:00 03/20/17 09:50 Abilify PO Not Given DAILY RAYSA Budesonide/Formoterol Fumarate 1 puff 03/13/17 22:00 03/20/17 09:52 Symbicort 160/4.5mcg - IH Not Given BID RAYSA Eucalyptus/Menthol/Phenol/Sorbitol 1 each 03/13/17 19:16 Cepastat Lozenge - MM Q4H PRN SORE THROAT Guaifenesin 10 ml 03/13/17 19:16 Robitussin Dm - PO Q6H PRN COUGH Hydrochlorothiazide 25 mg 03/14/17 10:00 03/20/17 09:49 Hctz - PO 25 mg DAILY RAYSA Administration Hydroxyzine Pamoate 50 mg 03/13/17 19:16 03/18/17 21:43 Vistaril - PO 50 mg Q4H PRN Administration AGITATION Ibuprofen 400 mg 03/13/17 19:16 Motrin - PO Q6H PRN Pain Level 4-6 Loperamide HCl 4 mg 03/13/17 19:16 Imodium - PO Q6H PRN DIARRHEA Magnesium Citrate 300 ml 03/13/17 19:16 Citroma - PO Q48H PRN CONSTIPATION Magnesium Hydroxide 30 ml 03/13/17 19:16 Milk Of Magnesia - PO DAILY PRN CONSTIPATION Multivit/Folic Acid/Iron 1 tab 03/14/17 10:00 03/20/17 09:49 Vitamins (Sjr) - PO 1 tab DAILY RAYSA Administration Pseudoephedrine/Triprolidine 1 combo 03/13/17 19:16 Actifed - PO TID PRN NASAL CONGESTION Thiamine HCl 100 mg 03/13/17 22:00 03/19/17 21:41 Vitamin B1 - PO 100 mg HS RAYSA Administration Trazodone HCl 100 mg 03/16/17 22:00 03/19/17 21:40 Desyrel - PO 100 mg HS RAYSA Administration Current Side Effect: No Lab tests ordered: No Lab tests reviewed: Yes Provider note:: Patient requested to be discharge today, he completed 7 days rehabilitation treatment and will continue to address his issues at [facility] program. Patient understands the negative impact of his addiction over major life areas and motivated to continue maintain abstinence. Medications well tolerated, scripts provided for 30 days, stable for discharge today. Total face to face time:: 15 Mental Status Exam - Mental Status Exam Alert and Oriented to: Time, Place, Person Cognitive Function: Good Patient Appearance: Well Groomed Mood: Hopeful Affect: Appropriate, Mood Congruent Patient Behavior: Appropriate, Cooperative Speech Pattern: Clear, Appropriate Voice Loudness: Normal Thought Process: Intact, Goal Oriented Thought Disorder: Not Present Hallucinations: Denies Suicidal Ideation: Denies Homicidal Ideation: Denies Insight/Judgement: Fair Sleep: Fair Appetite: Fair Gait/Station: Normal Psychiatric Treatment Plan - Problem List (1) Nicotine dependence Current Visit: No Qualifiers: Nicotine product type: cigarettes Substance use status: uncomplicated Qualified Code(s): F17.210 - Nicotine dependence, cigarettes, uncomplicated (2) Schizoaffective disorder Current Visit: No Comment: Self-report. (3) Alcohol dependence Current Visit: Yes (4) Alcohol-induced sleep disorder Current Visit: No
== END 2017-03-20 10:05 | disposition home or self-care (01) | DRG 772 ==
LOC: YASAS 18:08 → Y5N 18:09
PROVIDERS: ADMIT Psychiatry & Neurology Psychiatry; ATTEND Psychiatry & Neurology Psychiatry
PROC: HZ42ZZZ Group Counseling for Substance Abuse Treatment, Cognitive-Behavioral (ICD-10-PCS; principal; 2017-03-13)
DX: F10.20 Alcohol dependence, uncomplicated (principal); F17.210 Nicotine dependence, cigarettes, uncomplicated; F10.282 Alcohol dependence with alcohol-induced sleep disorder; F25.9 Schizoaffective disorder, unspecified; I10 Essential (primary) hypertension; J45.909 Unspecified asthma, uncomplicated; J42 Unspecified chronic bronchitis; K21.9 Gastro-esophageal reflux disease without esophagitis; Z85.028 Personal history of other malignant neoplasm of stomach; Z96.642 Presence of left artificial hip joint; Z96.641 Presence of right artificial hip joint; Z96.651 Presence of right artificial knee joint
CPT/HCPCS: 82962

== ENCOUNTER 2017-05-22 14:46 | Inpatient (IN) | payer OTHER ==
[2017-05-22 15:17] VITALS: BMI 17.7
--- NOTE | 2017-05-22 17:36 | HP ---
CIWA Score - CIWA Score Nausea/Vomitin Muscle Tremors: 2 Anxiety: 4-Mod. Anxious/Guarded Agitation: 2 Paroxysmal Sweats: 3 Orientation: 0-Oriented Tacttile Disturbances: 0-None Auditory Disturbances: 0-None Visual Disturbances: 0-None Headache: 0-None Present CIWA-Ar Total Score: 16 Admission ROS BHS - HPI Chief Complaint: "I need to get help for my alcohol." Patient is here to Detox from Alcohol. Allergies/Adverse Reactions: Allergies Allergy/AdvReac Type Severity Reaction Status Date / Time No Known Allergies Allergy Verified 05/22/17 17:32 History of Present Illness: Patient is a 56 YO male here to Detox from Alcohol. Patient has had several previous Detox / Rehab admissions at [facility] (Last: 03/2017). Exam Limitations: No Limitations - Ebola screening Have you traveled outside of the country in the last 21 days: No Have you had contact with anyone from an Ebola affected area: No Have you been sick,other than usual withdrawal symptoms: No Do you have a fever: No - Review of Systems Constitutional: Diaphoresis, Loss of Appetite, Malaise, Night Sweats, Changes in sleep, Unexplained wgt Loss (Lost approx. 10 lbs. over last 1 month.) EENT: reports: No Symptoms Reported Respiratory: reports: No Symptoms reported Cardiac: reports: No Symptoms Reported GI: reports: Poor Appetite : reports: No Symptoms Reported Musculoskeletal: reports: Back Pain Integumentary: reports: No Symptoms Reported Neuro: reports: Tremors Endocrine: reports: No Symptoms Reported Hematology: reports: Anemia (Uncertain about type.) Psychiatric: reports: Judgement Intact, Mood/Affect Appropiate, Orientated x3, Anxious Other Systems: Reviewed and Negative Patient History - Patient Medical History Hx Anemia: Yes (Uncertain about type.) Hx Asthma: Yes (On meds.) Hx Chronic Obstructive Pulmonary Disease (COPD): Yes (Uncertain about type.) Hx Cancer: Yes (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) Hx Cardiac Disorders: No Hx Congestive Heart Failure: No Hx Hypertension: Yes (On meds.) Hx Hypercholesterolemia: No Hx Pacemaker: No HX Cerebrovascular Accident: No Hx Seizures: No Hx Dementia: No Hx Diabetes: No Hx Gastrointestinal Disorders: Yes (STOMACH CANCER) Hx Liver Disease: No Hx Genitourinary Disorders: No Hx Sexually Transmitted Disorders: No Hx Renal Disease (ESRD): No Hx Thyroid Disease: No Hx Human Immunodeficiency Virus (HIV): No (Last Tested within last 6 months: NEGATIVE.) Hx Hepatitis C: No (Never Tested.) Hx Depression: Yes (On meds.) Hx Suicide Attempt: No (PATIENT DENIES CURRENT HI / SI.) Hx Bipolar Disorder: No Hx Schizophrenia: No Other Medical History: DENIES. - Patient Surgical History Past Surgical History: Yes Hx Neurologic Surgery: No Hx Cataract Extraction: No Hx Cardiac Surgery: No Hx Lung Surgery: No Hx Breast Surgery: No Hx Breast Biopsy: No Hx Abdominal Surgery: No Hx Appendectomy: No Hx Cholecystectomy: No Hx Genitourinary Surgery: No Hx Section: No Hx Orthopedic Surgery: Yes (R hip and R knee replacement (2016).) Other Surgical History: FX. JAW S/P PLATE AND SCREWS (approx. 10 years ago). Anesthesia Reaction: No - PPD History Previous Implant?: Yes Documented Results: Negative w/proof Date: 12/02/16 Results: 0 mm PPD to be Administered?: No - Reproductive History Patient is a Female of Child Bearing Age (11 -55 yrs old): No (PATIENT IS MALE.) - Smoking Cessation Smoking history: Current every day smoker Have you smoked in the past 12 months: Yes Aproximately how many cigarettes per day: 10 Cigars Per Day: 0 Hx Chewing Tobacco Use: No Initiated information on smoking cessation: Yes 'Breaking Loose' booklet given: 05/22/17 (GIVEN TO PATIENT.) - Substance & Tx. History Hx Alcohol Use: Yes Hx Substance Use: Yes Substance Use Type: Alcohol Hx Substance Use Treatment: Yes (Previous Detox / rehab admissions at [facility] (Last : 03/2017).) - Substances Abused Alcohol Route: Oral Frequency: Daily Amount used: 8-9 25 oz. beers; 2 pints Vodka. Age of first use: 11 Date of Last Use: 05/22/17 Family Disease History - Family Disease History Family Disease History: CA: Mother (, stomach cancer), Sister ( , stomach cancer), Other: Father (, ? unknown cause, etoh) Admission Physical Exam BHS - Vital Signs Vital Signs: Vital Signs - 24 hr 05/22/17 15:16 Temperature 96.9 F L Pulse Rate 107 H Respiratory 18 Rate Blood Pressure 121/94 - Physical General Appearance: Yes: No Apparent Distress, Nourished, Appropriately Dressed HEENTM: Yes: Hearing grossly Normal, Normocephalic, Normal Voice, AKIN, Pharynx Normal Respiratory: Yes: Chest Non-Tender, Lungs Clear, No Respiratory Distress, No Accessory Muscle Use Neck: Yes: No masses,lesions,Nodules, Supple, Trachea in good position Breast: Yes: Breast Exam Deferred Cardiology: Yes: Regular Rhythm, Regular Rate, S1, S2 Abdominal: Yes: Normal Bowel Sounds, Non Tender, Flat, Soft Genitourinary: Yes: Within Normal Limits Back: Yes: Decreased Range of Motion Musculoskeletal: Yes: Gait Steady, Back pain Extremities: Yes: Normal Capillary Refill, Normal Range of Motion, Non-Tender, Tremors Neurological: Yes: Fully Oriented, Alert, Normal Mood/Affect, Normal Response Integumentary: Yes: Normal Color, Dry, Warm Lymphatic: Yes: Within Normal Limits - Diagnostic (1) Alcohol dependence with uncomplicated withdrawal Current Visit: Yes Status: Acute (2) Asthma Current Visit: Yes Status: Chronic Qualifiers: Asthma severity: mild Asthma persistence: unspecified Asthma complication type: uncomplicated Qualified Code(s): J45.909 - Unspecified asthma, uncomplicated (3) COPD (chronic obstructive pulmonary disease) Current Visit: Yes Status: Chronic Qualifiers: COPD type: unspecified COPD Qualified Code(s): J44.9 - Chronic obstructive pulmonary disease, unspecified (4) HTN (hypertension) Current Visit: Yes Status: Chronic Qualifiers: Hypertension type: essential hypertension Qualified Code(s): I10 - Essential (primary) hypertension (5) Depression Current Visit: Yes Status: Acute Qualifiers: Depression Type: unspecified Qualified Code(s): F32.9 - Major depressive disorder, single episode, unspecified (6) History of right knee joint replacement Current Visit: Yes Status: Resolved (7) History of stomach cancer Current Visit: Yes Status: Chronic Comment: Treated With Chemotherapy, Currently in remission. (8) Nicotine dependence Current Visit: Yes Status: Chronic Qualifiers: Nicotine product type: cigarettes Substance use status: uncomplicated Qualified Code(s): F17.210 - Nicotine dependence, cigarettes, uncomplicated Cleared for Admission S - Detox or Rehab [facility] Level of Care: Medically Managed Detox Regimen/Protocol: Librium [facility] Breath Alcohol Content Breath Alcohol Content: 0.182 Urine Drug Screen - Results Drug Screen Negative: No Urine Drug Screen Results: THC-Marijuana
[2017-05-22] MEDS ORDERED: ACETAMINOPHEN 325 MG TABLET (FP) PO PRN (18:06)
[2017-05-22] MEDS ORDERED: IBUPROFEN 400 MG TABLET (FP) PO PRN (18:06)
[2017-05-22] MEDS ORDERED: NICOTINE POLACRILEX 2 MG GUM BC PRN (18:06)
[2017-05-22] MEDS ORDERED: MENTHOL/PHENOL 1 EACH UD MM PRN (18:06)
[2017-05-22] MEDS ORDERED: guaiFENesin/D-METHORPHAN HB 10 ML UNIT-DOSE CUPS PO PRN (18:06)
[2017-05-22] MEDS ORDERED: MAG HYDROX/AL HYDROX/SIMETH 30 ML UNIT-DOSE CUP PO PRN (18:06)
[2017-05-22] MEDS ORDERED: chlordiazePOXIDE HCL 25 MG CAPSULE PO PRN (18:06)
[2017-05-22] MEDS ORDERED: MAGNESIUM CITRATE 300 ML BOTTLE PO PRN (18:06)
[2017-05-22] MEDS ORDERED: LOPERAMIDE HCL 2 MG CAPSULE PO PRN (18:06)
[2017-05-22] MEDS ORDERED: P-EPHED 60MG/TRIPROLIDI 2.5MG TABLET PO PRN (18:06)
[2017-05-22] MEDS ORDERED: MAGNESIUM HYDROX 2400MG/30ML ORAL SUSPENSION 30 ML CUP PO PRN (18:06)
[2017-05-22] MEDS ORDERED: ALBUTEROL SO4 18 GM HFA INHALER IH PRN (18:10)
[2017-05-22] MEDS ORDERED: NICOTINE 21 MG/24 HOURS TOPICAL PATCH TD SCH (18:15)
[2017-05-22] MEDS ORDERED: chlordiazePOXIDE HCL 25 MG CAPSULE PO ONE (19:00)
[2017-05-22] MEDS: amLODIPine BESYLATE 5 MG TABLET (FP) PO SCH (19:00)
[2017-05-22] MEDS: NICOTINE 14 MG/24 HOURS TOPICAL PATCH TD SCH (19:02)
[2017-05-22] MEDS ORDERED: MONTELUKAST NA 10 MG TABLET PO SCH (22:00)
[2017-05-22] MEDS ORDERED: THIAMINE HCL 100 MG TABLET (FP) PO SCH (22:00)
[2017-05-22] MEDS ORDERED: MELATONIN 5 MG TABLETS PO SCH (22:00)
[2017-05-22] MEDS: BUDESONIDE/FORMETEROL FUMARATE 160/4.5 mcg INHALER IH SCH (22:21)
[2017-05-22] MEDS: chlordiazePOXIDE HCL 25 MG CAPSULE PO SCH (22:21)
[2017-05-22 23:29] LABS: URINE APPEARANCE CLEAR; URINE BILIRUBIN NEGATIVE (<2.0 mg/dL); URINE BLOOD NEGATIVE (NEGATIVE); URINE COLOR LTYELLOW; URINE GLUCOSE (UA) NEGATIVE (NEGATIVE); URINE KETONE TRACE (NEGATIVE); URINE LEUK ESTERASE NEGATIVE (NEGATIVE); URINE NITRITE NEGATIVE (NEGATIVE); URINE PROTEIN NEGATIVE (NEGATIVE); URINE UROBILINOGEN NEGATIVE mg/dL (0.2-1.0)
[2017-05-23] MEDS: chlordiazePOXIDE HCL 25 MG CAPSULE PO SCH ×2 (06:21→10:28)
[2017-05-23 09:34] VITALS: BP 126/77; TEMP 97.3
[2017-05-23 10:00] LABS: HEMATOCRIT 35.8 % (35.4-49); HEMOGLOBIN 12.3 GM/dL (11.7-16.9); MCH 30.8 pg (25.7-33.7); MCHC 34.4 g/dl (32.0-35.9); MEAN CELL VOLUME 89.4 fl (80-96); PLATELET COUNT 369 K/MM3 (134-434); RDW 14.3 % (11.9-15.9); WHITE BLOOD COUNT 5.7 K/mm3 (4.0-10.0)
[2017-05-23] MEDS ORDERED: PRENATAL VITAMINS W/ FOLIC ACID TABLET (FP) PO SCH (10:00)
[2017-05-23] MEDS ORDERED: HYDROCHLOROTHIAZIDE 25 MG TABLET (FP) PO SCH (10:00)
[2017-05-23 10:09] LABS: CHLORIDE 99 mmol/L (98-107); POTASSIUM 4.3 mmol/L (3.5-5.1); SODIUM 139 mmol/L (136-145)
[2017-05-23 10:23] LABS: ALK PHOS 107 U/L (45-117); ANION GAP 10 (8-16); BILIRUBIN,TOTAL 1.7 mg/dL (0.2-1.0); BLOOD UREA NITROGEN 18 mg/dL (7-18); CALCIUM 9.2 mg/dL (8.5-10.1); CO2 30 mmol/L (21-32); CREATININE 0.8 mg/dL (0.7-1.3); GLUCOSE,RANDOM 83 mg/dL (74-106); SGOT/AST 104 U/L (15-37); SGPT/ALT 140 U/L (12-78); TOT PROT 7.3 g/dl (6.4-8.2)
[2017-05-23] MEDS: amLODIPine BESYLATE 5 MG TABLET (FP) PO SCH (10:28)
[2017-05-23] MEDS: BUDESONIDE/FORMETEROL FUMARATE 160/4.5 mcg INHALER IH SCH (10:28)
[2017-05-23] MEDS: NICOTINE 14 MG/24 HOURS TOPICAL PATCH TD SCH (10:28)
[2017-05-23] MEDS ORDERED: ONDANSETRON *ODT* 4 MG TABLET SL PRN (10:29)
--- NOTE | 2017-05-23 13:05 | CONSULT ---
[facility] Psychiatric Consult - Data Date of interview: 05/23/17 Admission source: [facility] Identifying data: Approached at bedside for psychiatric evaluation." Go away.I don't need psychiatrists.I am fine.Leave." Examination rejected.Nursing staff is made aware of patient's decision to waive interview.
[2017-05-23 14:05] VITALS: PULSE 83
--- NOTE | 2017-05-23 16:08 | PN ---
S CIWA - CIWA Score Nausea/Vomitin Muscle Tremors: None Anxiety: 4-Mod. Anxious/Guarded Agitation: 3 Paroxysmal Sweats: No Perspiration Orientation: 0-Oriented Tacttile Disturbances: 3-Moderate Itch/Numb/Burn Auditory Disturbances: 2-Mild Harshness/Frighten Visual Disturbances: 0-None Headache: 0-None Present CIWA-Ar Total Score: 15 BHS Progress Note (SOAP) Subjective: Stomach Cramping, Nausea, Fatigue, Anxious. Objective: PATIENT A & O X 3, OBSERVED AMBULATING ON UNIT. NO ACUTE DISTRESS. 05/23/17 16:07 Vital Signs Temperature 97.3 F L 05/23/17 09:33 Pulse Rate 83 05/23/17 13:00 Respiratory Rate 18 05/23/17 13:00 Blood Pressure 126/77 05/23/17 09:33 O2 Sat by Pulse Oximetry (%) Laboratory Tests 05/22/17 05/23/17 05/23/17 Unknown 07:40 07:40 WBC 5.7 D RBC 4.00 Hgb 12.3 Hct 35.8 MCV 89.4 MCH 30.8 MCHC 34.4 RDW 14.3 Plt Count 369 MPV 9.0 Sodium 139 Potassium 4.3 Chloride 99 Carbon Dioxide 30 D Anion Gap 10 BUN 18 Creatinine 0.8 D Creat Clearance w eGFR > 60 Random Glucose 83 D Calcium 9.2 Total Bilirubin 1.7 H D AST 104 H D ALT 140 H D Alkaline Phosphatase 107 Total Protein 7.3 Albumin 4.0 Urine Color Ltyellow Urine Appearance Clear Urine pH 6.0 Ur Specific [place] 1.010 Urine Protein Negative Urine Glucose (UA) Negative Urine Ketones Trace H Urine Blood Negative Urine Nitrite Negative Urine Bilirubin Negative Urine Urobilinogen Negative Ur Leukocyte Esterase Negative labs noted. rpr result pending. 05/23/17 16:08 Assessment: 05/23/17 16:07 WITHDRAWAL SYMPTOMS. Plan: CONTINUE DETOX.
--- NOTE | 2017-05-23 16:10 | DS ---
[facility] Detox Discharge Summary Admission Date: 05/22/17 Discharge Date: 05/23/17 - History Present History: Alcohol Dependence Additional Comments: PATIENT DOES NOT WISH TO STAY TO COMPLETE DETOX REGIMEN. RISKS OF LEAVING DETOX UNIT AGAINST MEDICAL ADVICE AND PRIOR TO COMPLETION OF DETOX REGIMEN EXPLAINED TO PATIENT. PATIENT ADVISED TO GO IMMEDIATELY TO NEAREST ER SHOULD ANY INTOLERABLE DETOX SYMPTOMS DEVELOP AT ANY TIME. PATIENT LEFT DETOX UNIT IN STABLE MEDICAL CONDITION. Pertinent Past History: History of Anemia, Asthma COPD, History of Right Hip and Right Knee Replacement , History of Stomach Cancer (with Chemotherapy). - Physical Exam Results Vital Signs: Vital Signs Temperature 97.3 F L 05/23/17 09:33 Pulse Rate 83 05/23/17 13:00 Respiratory Rate 18 05/23/17 13:00 Blood Pressure 126/77 05/23/17 09:33 O2 Sat by Pulse Oximetry (%) Pertinent Admission Physical Exam Findings: WITHDRAWAL SYMPTOMS. Laboratory Tests 05/22/17 05/23/17 05/23/17 Unknown 07:40 07:40 WBC 5.7 D RBC 4.00 Hgb 12.3 Hct 35.8 MCV 89.4 MCH 30.8 MCHC 34.4 RDW 14.3 Plt Count 369 MPV 9.0 Sodium 139 Potassium 4.3 Chloride 99 Carbon Dioxide 30 D Anion Gap 10 BUN 18 Creatinine 0.8 D Creat Clearance w eGFR > 60 Random Glucose 83 D Calcium 9.2 Total Bilirubin 1.7 H D AST 104 H D ALT 140 H D Alkaline Phosphatase 107 Total Protein 7.3 Albumin 4.0 Urine Color Ltyellow Urine Appearance Clear Urine pH 6.0 Ur Specific [place] 1.010 Urine Protein Negative Urine Glucose (UA) Negative Urine Ketones Trace H Urine Blood Negative Urine Nitrite Negative Urine Bilirubin Negative Urine Urobilinogen Negative Ur Leukocyte Esterase Negative LABS NOTED. - Treatment Hospital Course: Detoxed Safely - Medication Discharge Medications: Ambulatory Orders Aripiprazole [Abilify] 10 mg PO DAILY #30 tablet 08/20/15 Albuterol Sulfate Inhaler - [Ventolin HFA Inhaler -] 2 inh PO Q4H PRN #1 inhaler 03/23/17 Amlodipine Besylate [Norvasc -] 5 mg PO DAILY #30 tablet 03/23/17 Budesonide/Formeterol Fumarate [SYMBICORT 160/4.5mcg -] 1 inh PO BID #1 inhaler 03/23/17 Hydrochlorothiazide [Hctz -] 25 mg PO DAILY #30 tablet 03/23/17 Trazodone HCl 100 mg PO HS #30 tablet 03/23/17 Montelukast Sodium [Singulair] 10 mg PO HS 05/22/17 - Diagnosis (1) Alcohol dependence with uncomplicated withdrawal Status: Acute (2) Asthma Status: Chronic Qualifiers: Asthma severity: mild Asthma persistence: unspecified Asthma complication type: uncomplicated Qualified Code(s): J45.909 - Unspecified asthma, uncomplicated (3) COPD (chronic obstructive pulmonary disease) Status: Chronic Qualifiers: COPD type: unspecified COPD Qualified Code(s): J44.9 - Chronic obstructive pulmonary disease, unspecified (4) HTN (hypertension) Status: Chronic Qualifiers: Hypertension type: essential hypertension Qualified Code(s): I10 - Essential (primary) hypertension (5) Depression Status: Acute Qualifiers: Depression Type: unspecified Qualified Code(s): F32.9 - Major depressive disorder, single episode, unspecified (6) History of right knee joint replacement Status: Resolved (7) History of stomach cancer Status: Chronic (8) Nicotine dependence Status: Chronic Qualifiers: Nicotine product type: cigarettes Substance use status: uncomplicated Qualified Code(s): F17.210 - Nicotine dependence, cigarettes, uncomplicated - AMA Did Patient Leave Against Medical Advice: Yes (PATIENT DID NOT WISH TO STAY TO COMPLETE DETOX REGIMEN.)
[2017-05-23] MEDS ORDERED: chlordiazePOXIDE HCL 25 MG CAPSULE PO SCH (23:00)
[2017-05-24] MEDS ORDERED: chlordiazePOXIDE 5 MG CAPSULE PO SCH (23:00)
--- NOTE | 2017-05-25 09:13 | EKG ---
Test Reason : Blood Pressure : / mmHG Vent. Rate : 092 BPM Atrial Rate : 092 BPM P-R Int : 134 ms QRS Dur : 092 ms QT Int : 380 ms P-R-T Axes : 086 072 080 degrees QTc Int : 469 ms NORMAL SINUS RHYTHM NORMAL ECG WHEN COMPARED WITH ECG OF 09-MAR-2017 17:50, NO SIGNIFICANT CHANGE WAS FOUND Confirmed by LADI NOYOLA MD ([id number]) on 05/25/2017 9:13:39 AM Referred By: Confirmed By:LADI NOYOLA MD
[2017-05-25] MEDS ORDERED: chlordiazePOXIDE HCL 10 MG CAPSULE PO SCH (23:00)
== END 2017-05-23 13:15 | disposition left against medical advice (07) | DRG 770 ==
LOC: YASAS 14:46 → Y3N 18:33
PROVIDERS: ADMIT Internal Medicine; ATTEND Internal Medicine
PROC: HZ2ZZZZ Detoxification Services for Substance Abuse Treatment (ICD-10-PCS; principal; 2017-05-22)
DX: F10.230 Alcohol dependence with withdrawal, uncomplicated (principal); F17.210 Nicotine dependence, cigarettes, uncomplicated; F32.9 Major depressive disorder, single episode, unspecified; I10 Essential (primary) hypertension; J45.909 Unspecified asthma, uncomplicated; J44.9 Chronic obstructive pulmonary disease, unspecified; D86.2 Sarcoidosis of lung with sarcoidosis of lymph nodes; Z85.028 Personal history of other malignant neoplasm of stomach; Z96.651 Presence of right artificial knee joint
CPT/HCPCS: 36415; 80053; 81003; 85027; 86593; 93005; 93010

== ENCOUNTER 2017-07-07 10:54 | Inpatient (IN) | payer OTHER ==
[2017-07-07 12:26] VITALS: BMI 16.8
--- NOTE | 2017-07-07 13:19 | HP ---
CIWA Score - CIWA Score Nausea/Vomitin Muscle Tremors: 3 Anxiety: 3 Agitation: 3 Paroxysmal Sweats: 1-Minimal Palms Moist Orientation: 0-Oriented Tacttile Disturbances: 1-Very Mild Itch/Numbness Auditory Disturbances: 1-Very Mild Visual Disturbances: 0-None Headache: 2-Mild CIWA-Ar Total Score: 17 Admission ROS BHS - HPI Chief Complaint: I need help to stop drinking alcohol,marijuana Allergies/Adverse Reactions: Allergies Allergy/AdvReac Type Severity Reaction Status Date / Time No Known Allergies Allergy Verified 07/07/17 13:02 History of Present Illness: this 56 years old male with alcohol and marijuana dependence,seeking detox, withdrawal symptom,last treatment [facility] 05/22/17 to 05/23/17 not completed syncope laceration of right eyebrow 2 days ago seen in [facility],asthma, schizoaffective disorder weight loss no significant period of sobriety - Ebola screening Have you traveled outside of the country in the last 21 days: No Have you had contact with anyone from an Ebola affected area: No Have you been sick,other than usual withdrawal symptoms: No Do you have a fever: No - Review of Systems Constitutional: Loss of Appetite, Malaise, Night Sweats, Changes in sleep, Unintentional Wgt. Loss EENT: reports: Nose Congestion, Other (laceration of right eyebrow with stitches with scab) Respiratory: reports: No Symptoms reported, Other (asthma) Cardiac: reports: No Symptoms Reported GI: reports: Diarrhea, Nausea, Abdominal cramping : reports: No Symptoms Reported Musculoskeletal: reports: Muscle Pain, Muscle Weakness Integumentary: reports: Dryness Neuro: reports: Headache, Tremors Endocrine: reports: No Symptoms Reported Hematology: reports: No Symptoms Reported Psychiatric: reports: No Sypmtoms Reported, Judgement Intact, Mood/Affect Appropiate, Orientated x3 Patient History - Patient Medical History Hx Anemia: Yes (Uncertain about type.) Hx Asthma: Yes (On meds.) Hx Chronic Obstructive Pulmonary Disease (COPD): Yes (Uncertain about type.) Hx Cancer: Yes (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) Hx Cardiac Disorders: No Hx Congestive Heart Failure: No Hx Hypertension: Yes (On meds.) Hx Hypercholesterolemia: No Hx Pacemaker: No HX Cerebrovascular Accident: No Hx Seizures: No Hx Dementia: No Hx Diabetes: No Hx Gastrointestinal Disorders: Yes (STOMACH CANCER) Hx Liver Disease: No Hx Genitourinary Disorders: No Hx Sexually Transmitted Disorders: No Hx Renal Disease (ESRD): No Hx Thyroid Disease: No Hx Human Immunodeficiency Virus (HIV): No (Last Tested within last 6 months: NEGATIVE.) Hx Hepatitis C: No Hx Depression: Yes (On meds.) Hx Suicide Attempt: No (PATIENT DENIES CURRENT HI / SI.) Hx Bipolar Disorder: No Hx Schizophrenia: No Other Medical History: no suicidal,no homicidal,laceration of right eyebrow with stitches - Patient Surgical History Past Surgical History: Yes Hx Neurologic Surgery: No Hx Cataract Extraction: No Hx Cardiac Surgery: No Hx Lung Surgery: No Hx Breast Surgery: No Hx Breast Biopsy: No Hx Abdominal Surgery: No Hx Appendectomy: No Hx Cholecystectomy: No Hx Genitourinary Surgery: No Hx Section: No Hx Orthopedic Surgery: Yes (R hip and R knee replacement (2016).) Other Surgical History: FX. JAW S/P PLATE AND SCREWS (approx. 10 years ago). Anesthesia Reaction: No - PPD History Previous Implant?: Yes Documented Results: Negative w/proof Date: 12/02/16 Results: 0 mm PPD to be Administered?: No - Smoking Cessation Smoking history: Current every day smoker Have you smoked in the past 12 months: Yes Aproximately how many cigarettes per day: 10 Cigars Per Day: 0 Hx Chewing Tobacco Use: No Initiated information on smoking cessation: Yes 'Breaking Loose' booklet given: 07/07/17 - Substance & Tx. History Hx Alcohol Use: Yes Hx Substance Use: Yes Substance Use Type: Alcohol, Marijuana Hx Substance Use Treatment: Yes (05/22/17 to 05/23/17) - Substances Abused Alcohol Route: Oral Frequency: Daily Amount used: 8-10 BEERS/ 2 PINTS VODKA Age of first use: 13 Date of Last Use: 07/06/17 Marijuana/Hashish Route: Smoking Frequency: Daily Amount used: 1-2 BAGS Age of first use: 13 Date of Last Use: 07/05/17 Family Disease History - Family Disease History Family Disease History: CA: Mother (, stomach cancer), Sister ( , stomach cancer), Other: Father (, ? unknown cause, etoh) Admission Physical Exam BHS - Vital Signs Vital Signs: Vital Signs - 24 hr 07/07/17 12:24 Temperature 99 F Pulse Rate 78 Respiratory 20 Rate Blood Pressure 165/98 - Physical General Appearance: Yes: Moderate Distress, Tremorous, Irritable, Sweating, Anxious HEENTM: Yes: Normal ENT Inspection, AKIN, Pharynx Normal, Other (laceration of right eyebrrow with stitches and scab formation) Respiratory: Yes: Lungs Clear, Normal Breath Sounds, No Respiratory Distress Neck: Yes: Within Normal Limits, Supple, Trachea in good position Breast: Yes: Within Normal Limits Cardiology: Yes: Within Normal Limits, Regular Rhythm, Regular Rate, S1, S2 Abdominal: Yes: Within Normal Limits, Normal Bowel Sounds, Non Tender, Flat, Soft Genitourinary: Yes: Within Normal Limits Back: Yes: Normal Inspection, Muscle Spasm Musculoskeletal: Yes: full range of Motion, Back pain, Muscle Pain Extremities: Yes: Within Normal Limits, Tremors 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 intact, Alert, Motor Strength 5/5 Integumentary: Yes: Dry Lymphatic: Yes: Within Normal Limits - Diagnostic (1) Alcohol dependence with uncomplicated withdrawal Current Visit: No Status: Acute (2) Asthma Current Visit: No Status: Chronic Qualifiers: Asthma severity: mild Asthma persistence: unspecified Asthma complication type: uncomplicated Qualified Code(s): J45.909 - Unspecified asthma, uncomplicated (3) Cannabis dependence Current Visit: Yes Status: Chronic (4) History of knee replacement Current Visit: No Status: Chronic Qualifiers: (5) History of left hip replacement Current Visit: No Status: Chronic (6) Schizoaffective disorder Current Visit: No Status: Chronic Comment: Self-report. (7) Syncope Current Visit: No Status: Chronic (8) Weight loss Current Visit: No Status: Chronic (9) History of right knee joint replacement Current Visit: No Status: Resolved (10) History of cancer of stomach Current Visit: Yes Status: Acute (11) History of right hip replacement Current Visit: No Status: Acute (12) History of stomach cancer Current Visit: No Status: Chronic Comment: Treated With Chemotherapy, Currently in remission. Cleared for Admission [facility] - Detox or Rehab [facility] Level of Care: Medically Managed Detox Regimen/Protocol: Librium S Breath Alcohol Content Breath Alcohol Content: 0 Urine Drug Screen - Results Drug Screen Negative: No Urine Drug Screen Results: THC-Marijuana, BZO-Benzodiazepines
[2017-07-07] MEDS ORDERED: MENTHOL/PHENOL 1 EACH UD MM PRN (13:33)
[2017-07-07] MEDS ORDERED: LOPERAMIDE HCL 2 MG CAPSULE PO PRN (13:33)
[2017-07-07] MEDS ORDERED: guaiFENesin/D-METHORPHAN HB 10 ML UNIT-DOSE CUPS PO PRN (13:33)
[2017-07-07] MEDS ORDERED: chlordiazePOXIDE HCL 25 MG CAPSULE PO PRN (13:33)
[2017-07-07] MEDS ORDERED: P-EPHED 60MG/TRIPROLIDI 2.5MG TABLET PO PRN (13:33)
[2017-07-07] MEDS ORDERED: ACETAMINOPHEN 325 MG TABLET (FP) PO PRN (13:33)
[2017-07-07] MEDS ORDERED: MAGNESIUM CITRATE 300 ML BOTTLE PO PRN (13:33)
[2017-07-07] MEDS ORDERED: MAG HYDROX/AL HYDROX/SIMETH 30 ML UNIT-DOSE CUP PO PRN (13:33)
[2017-07-07] MEDS ORDERED: MAGNESIUM HYDROX 2400MG/30ML ORAL SUSPENSION 30 ML CUP PO PRN (13:33)
[2017-07-07] MEDS ORDERED: IBUPROFEN 400 MG TABLET (FP) PO PRN (13:33)
[2017-07-07] MEDS ORDERED: hydrOXYzine PAMOATE 50 MG CAPSULE (FP) PO PRN (13:33)
[2017-07-07] MEDS ORDERED: ALBUTEROL SO4 18 GM HFA INHALER IH PRN (13:36)
[2017-07-07] MEDS ORDERED: chlordiazePOXIDE HCL 25 MG CAPSULE PO ONE (14:15)
[2017-07-07] MEDS: amLODIPine BESYLATE 5 MG TABLET (FP) PO SCH (14:42)
[2017-07-07] MEDS: HYDROCHLOROTHIAZIDE 25 MG TABLET (FP) PO SCH (14:42)
--- NOTE | 2017-07-07 17:10 | CONSULT ---
[facility] Psychiatric Consult - Data Date of interview: 07/07/17 Admission source: [facility] Identifying data: Patient is a 56 year old single male, without kids, unemployed (disability pending), and currently homeless. This is one of multiple admissions for patient. Pt. admitted to for alcohol and cannabis dependence. Substance Abuse History: Following information confirmed with Mr. Ham: - Smoking Cessation. Smoking history: Current every day smoker. Have you smoked in the past 12 months: Yes. Aproximately how many cigarettes per day: 10. Cigars Per Day: 0. Hx Chewing Tobacco Use: No. Initiated information on smoking cessation: Yes. 'Breaking Loose' booklet given: 07/07/17. - Substance & Tx. History. Hx Alcohol Use: Yes. Hx Substance Use: Yes. Substance Use Type : Alcohol, Marijuana. Hx Substance Use Treatment: Yes (05/22/17 to 05/23/17). - Substances Abused. Alcohol. Route: Oral. Frequency: Daily. Amount used : 8-10 BEERS/ 2 PINTS VODKA. Age of first use: 13. Date of Last Use: . Marijuana/Hashish. Route: Smoking. Frequency: Daily. Amount used: 1- 2 BAGS. Age of first use: 13. Date of Last Use: 07/05/17 Medical History: stomach chemo rx 2000/ in remission, hypertension, right hip and left knee replacement in 2016. S/P plate and screws in jaw approximately 10 years ago. Stitches on left eye brow. Psychiatric History: Patient reports a diagnosis of schizophrenia although states he was never diagnosed but it has been on his records for many years now. States he has been prescribed abilify but states the medication caused him to experience visual hallucinations and the medication seroquel which he states is effective for sleep. Patient was prescribed trazodone during his previous admission but is refusing to restart medication during this admission. Reports his psychotrophic medications are prescribed by his PCP. Pt. with a history of nonadherence to medication. Pt requesting seroquel to assist with sleep. Patient denies h/o outpatient care and suicide attempt. Physical/Sexual Abuse/Trauma History: Denies. Mental Status Exam - Mental Status Exam Alert and Oriented to: Time, Place, Person Cognitive Function: Good Patient Appearance: Well Groomed Mood: Hopeful Affect: Mood Congruent Patient Behavior: Appropriate, Cooperative Speech Pattern: Clear Voice Loudness: Normal Thought Process: Intact, Goal Oriented Thought Disorder: Not Present Hallucinations: Denies Suicidal Ideation: Denies Homicidal Ideation: Denies Insight/Judgement: Poor Sleep: Fair Appetite: Fair Muscle strength/Tone: Normal Gait/Station: Normal Psychiatric Findings - Problem List ([place] 1, 2,3) (1) Alcohol dependence Current Visit: Yes Status: Acute (2) Cannabis dependence Current Visit: Yes Status: Chronic (3) Alcohol-induced sleep disorder Current Visit: Yes Status: Acute (4) Schizoaffective disorder Current Visit: No Status: Chronic Comment: Self-report. - Initial Treatment Plan Initial Treatment Plan: Psychoeducation provided. Detoxification in progress. Patient refusing trazodone for insomnia. Seroquel 50mg qhs ordered. Benefits and side effects discussed. Verbal consent given. Will continue to monitor.
[2017-07-07] MEDS: chlordiazePOXIDE HCL 25 MG CAPSULE PO SCH ×2 (17:57→22:17)
[2017-07-07] MEDS ORDERED: MELATONIN 5 MG TABLETS PO PRN (22:00)
[2017-07-07] MEDS: THIAMINE HCL 100 MG TABLET (FP) PO SCH (22:17)
[2017-07-07] MEDS: MONTELUKAST NA 10 MG TABLET PO SCH (22:17)
[2017-07-07] MEDS: QUEtiapine FUMARATE 50 MG TABLET PO SCH (22:17)
[2017-07-07] MEDS: BUDESONIDE/FORMETEROL FUMARATE 160/4.5 mcg INHALER IH SCH (22:43)
[2017-07-08 01:26] LABS: URINE APPEARANCE SLCLOUDY; URINE BILIRUBIN NEGATIVE (<2.0 mg/dL); URINE COLOR AMBER; URINE GLUCOSE (UA) NEGATIVE (NEGATIVE); URINE KETONE TRACE (NEGATIVE); URINE LEUK ESTERASE NEGATIVE (NEGATIVE); URINE NITRITE NEGATIVE (NEGATIVE); URINE UROBILINOGEN 4.0 E.U/dl mg/dL (0.2-1.0)
[2017-07-08 01:38] LABS: URINE PROTEIN 2+ (NEGATIVE)
[2017-07-08 02:00] LABS: EPI CELLS RARE /HPF (FEW); URINE BACTERIA RARE /hpf (NONE SEEN); URINE HYALINE CAST 24 /lpf; URINE MUCUS MANY
[2017-07-08] MEDS: chlordiazePOXIDE HCL 25 MG CAPSULE PO SCH ×4 (05:53→22:26)
[2017-07-08 10:25] LABS: HEMATOCRIT 34.6 % (35.4-49); HEMOGLOBIN 12.2 GM/dL (11.7-16.9); MCH 31.3 pg (25.7-33.7); MCHC 35.2 g/dl (32.0-35.9); MEAN CELL VOLUME 88.9 fl (80-96); MEAN PLT VOLUME 8.9 fl (7.5-11.1); PLATELET COUNT 410 K/MM3 (134-434); RBC 3.89 M/mm3 (4.00-5.60); RDW 14.9 % (11.9-15.9); WHITE BLOOD COUNT 10.5 K/mm3 (4.0-10.0)
[2017-07-08] MEDS: PRENATAL VITAMINS W/ FOLIC ACID TABLET (FP) PO SCH (10:40)
[2017-07-08] MEDS: amLODIPine BESYLATE 5 MG TABLET (FP) PO SCH (10:40)
[2017-07-08] MEDS: HYDROCHLOROTHIAZIDE 25 MG TABLET (FP) PO SCH (10:40)
[2017-07-08] MEDS: BUDESONIDE/FORMETEROL FUMARATE 160/4.5 mcg INHALER IH SCH ×2 (10:41→22:25)
--- NOTE | 2017-07-08 10:46 | PN ---
S CIWA - CIWA Score Nausea/Vomitin Muscle Tremors: 3 Anxiety: 2 Agitation: 2 Paroxysmal Sweats: 1-Minimal Palms Moist Orientation: 0-Oriented Tacttile Disturbances: 1-Very Mild Itch/Numbness Auditory Disturbances: 1-Very Mild Visual Disturbances: 0-None Headache: 2-Mild CIWA-Ar Total Score: 15 S Progress Note (SOAP) Subjective: ALERT,IRRITABLE,ANXIOUS,INTERRUPTED SLEEP,TREMOR Objective: 07/08/17 10:43 Vital Signs Temperature 99.9 F H 07/08/17 09:28 Pulse Rate 75 07/08/17 09:28 Respiratory Rate 16 07/08/17 09:28 Blood Pressure 118/73 07/08/17 09:28 O2 Sat by Pulse Oximetry (%) EKG NSR,LVH,PROLONG QT 460/463 NO CHEST PAIN,NO SOB,NO DIZZINESS Laboratory Last Values WBC 10.5 K/mm3 (4.0-10.0) H D 07/08/17 06:00 RBC 3.89 M/mm3 (4.00-5.60) L 07/08/17 06:00 Hgb 12.2 GM/dL (11.7-16.9) 07/08/17 06:00 Hct 34.6 % (35.4-49) L 07/08/17 06:00 MCV 88.9 fl (80-96) 07/08/17 06:00 MCH 31.3 pg (25.7-33.7) 07/08/17 06:00 MCHC 35.2 g/dl (32.0-35.9) 07/08/17 06:00 RDW 14.9 % (11.9-15.9) 07/08/17 06:00 Plt Count 410 K/MM3 (134-434) 07/08/17 06:00 MPV 8.9 fl (7.5-11.1) 07/08/17 06:00 Urine Color Teresa 07/07/17 23:51 Urine Appearance Slcloudy 07/07/17 23:51 Urine pH 6.0 (5.0-8.0) 07/07/17 23:51 Ur Specific [place] 1.024 (1.001-1.035) 07/07/17 23:51 Urine Protein 2+ (NEGATIVE) H 07/07/17 23:51 Urine Glucose (UA) Negative (NEGATIVE) 07/07/17 23:51 Urine Ketones Trace (NEGATIVE) H 07/07/17 23:51 Urine Blood Negative (NEGATIVE) 07/07/17 23:51 Urine Nitrite Negative (NEGATIVE) 07/07/17 23:51 Urine Bilirubin Negative (<2.0 mg/dL) 07/07/17 23:51 Urine Urobilinogen 4.0 e.u/dl mg/dL (0.2-1.0) 07/07/17 23:51 Ur Leukocyte Esterase Negative (NEGATIVE) 07/07/17 23:51 Urine WBC (Auto) 2 /hpf (3-5) 07/07/17 23:51 Urine RBC (Auto) 1 /hpf (0-3) 07/07/17 23:51 Ur Epithelial Cells Rare /HPF (FEW) 07/07/17 23:51 Urine Bacteria Rare /hpf (NONE SEEN) 07/07/17 23:51 Hyaline Casts 24 /lpf 07/07/17 23:51 Urine Mucus Many 07/07/17 23:51 07/08/17 10:45 LABS PENDING Assessment: 07/08/17 10:45 WITHDRAWAL SYMPTOM Plan: CONTINUE DETOX
[2017-07-08 11:36] LABS: CALCIUM 9.2 mg/dL (8.5-10.1); CHLORIDE 96 mmol/L (98-107); POTASSIUM 4.3 mmol/L (3.5-5.1); SODIUM 134 mmol/L (136-145)
[2017-07-08 11:42] LABS: ALBUMIN 4.7 g/dl (3.4-5.0); ALK PHOS 90 U/L (45-117); ANION GAP 10 (8-16); BILIRUBIN,TOTAL 0.8 mg/dL (0.2-1.0); BLOOD UREA NITROGEN 13 mg/dL (7-18); CO2 28 mmol/L (21-32); CREATININE 0.8 mg/dL (0.7-1.3); GLUCOSE,RANDOM 138 mg/dL (74-106); SGOT/AST 80 U/L (15-37); SGPT/ALT 72 U/L (12-78); TOT PROT 8.3 g/dl (6.4-8.2)
--- NOTE | 2017-07-08 14:00 | EKG ---
Test Reason : Blood Pressure : / mmHG Vent. Rate : 061 BPM Atrial Rate : 061 BPM P-R Int : 136 ms QRS Dur : 104 ms QT Int : 460 ms P-R-T Axes : 086 070 079 degrees QTc Int : 463 ms NORMAL SINUS RHYTHM VOLTAGE CRITERIA FOR LEFT VENTRICULAR HYPERTROPHY ABNORMAL ECG WHEN COMPARED WITH ECG OF 22-MAY-2017 18:05, VENT. RATE HAS DECREASED BY 31 BPM Confirmed by WEST AMOR MD ([id number]) on 07/08/2017 2:00:40 PM Referred By: Confirmed By:WEST AMOR MD
[2017-07-08] MEDS: MONTELUKAST NA 10 MG TABLET PO SCH (22:25)
[2017-07-08] MEDS: QUEtiapine FUMARATE 50 MG TABLET PO SCH (22:25)
[2017-07-08] MEDS: THIAMINE HCL 100 MG TABLET (FP) PO SCH (22:25)
[2017-07-09] MEDS: chlordiazePOXIDE HCL 25 MG CAPSULE PO SCH ×2 (05:40→10:10)
[2017-07-09] MEDS: PRENATAL VITAMINS W/ FOLIC ACID TABLET (FP) PO SCH (10:09)
[2017-07-09] MEDS: BUDESONIDE/FORMETEROL FUMARATE 160/4.5 mcg INHALER IH SCH ×2 (10:10→22:18)
--- NOTE | 2017-07-09 12:15 | PN ---
S CIWA - CIWA Score Nausea/Vomitin Muscle Tremors: 3 Anxiety: 3 Agitation: 2 Paroxysmal Sweats: 1-Minimal Palms Moist Orientation: 0-Oriented Tacttile Disturbances: 1-Very Mild Itch/Numbness Auditory Disturbances: 1-Very Mild Visual Disturbances: 0-None Headache: 2-Mild CIWA-Ar Total Score: 16 BHS Progress Note (SOAP) Subjective: ALERT,IRRITABLE,ANXIOUS,INTERRUPTED SLEEP,TREMOR Objective: 07/09/17 12:12 Vital Signs Temperature 97.9 F 07/09/17 09:23 Pulse Rate 74 07/09/17 09:23 Respiratory Rate 18 07/09/17 09:23 Blood Pressure 104/52 07/09/17 09:23 O2 Sat by Pulse Oximetry (%) 07/09/17 12:13 Laboratory Results - last 24 hr 07/08/17 06:00 RPR Titer Nonreactive 07/09/17 12:13 Laboratory Last Values WBC 10.5 K/mm3 (4.0-10.0) H D 07/08/17 06:00 RBC 3.89 M/mm3 (4.00-5.60) L 07/08/17 06:00 Hgb 12.2 GM/dL (11.7-16.9) 07/08/17 06:00 Hct 34.6 % (35.4-49) L 07/08/17 06:00 MCV 88.9 fl (80-96) 07/08/17 06:00 MCH 31.3 pg (25.7-33.7) 07/08/17 06:00 MCHC 35.2 g/dl (32.0-35.9) 07/08/17 06:00 RDW 14.9 % (11.9-15.9) 07/08/17 06:00 Plt Count 410 K/MM3 (134-434) 07/08/17 06:00 MPV 8.9 fl (7.5-11.1) 07/08/17 06:00 Sodium 134 mmol/L (136-145) L 07/08/17 06:00 Potassium 4.3 mmol/L (3.5-5.1) 07/08/17 06:00 Chloride 96 mmol/L (98-107) L 07/08/17 06:00 Carbon Dioxide 28 mmol/L (21-32) 07/08/17 06:00 Anion Gap 10 (8-16) 07/08/17 06:00 BUN 13 mg/dL (7-18) D 07/08/17 06:00 Creatinine 0.8 mg/dL (0.7-1.3) 07/08/17 06:00 Creat Clearance w eGFR > 60 (>60) 07/08/17 06:00 Random Glucose 138 mg/dL (74-106) H D 07/08/17 06:00 Calcium 9.2 mg/dL (8.5-10.1) 07/08/17 06:00 Total Bilirubin 0.8 mg/dL (0.2-1.0) D 07/08/17 06:00 AST 80 U/L (15-37) H D 07/08/17 06:00 ALT 72 U/L (12-78) D 07/08/17 06:00 Alkaline Phosphatase 90 U/L (45-117) 07/08/17 06:00 Total Protein 8.3 g/dl (6.4-8.2) H 07/08/17 06:00 Albumin 4.7 g/dl (3.4-5.0) 07/08/17 06:00 Urine Color Teresa 07/07/17 23:51 Urine Appearance Slcloudy 07/07/17 23:51 Urine pH 6.0 (5.0-8.0) 07/07/17 23:51 Ur Specific [place] 1.024 (1.001-1.035) 07/07/17 23:51 Urine Protein 2+ (NEGATIVE) H 07/07/17 23:51 Urine Glucose (UA) Negative (NEGATIVE) 07/07/17 23:51 Urine Ketones Trace (NEGATIVE) H 07/07/17 23:51 Urine Blood Negative (NEGATIVE) 07/07/17 23:51 Urine Nitrite Negative (NEGATIVE) 07/07/17 23:51 Urine Bilirubin Negative (<2.0 mg/dL) 07/07/17 23:51 Urine Urobilinogen 4.0 e.u/dl mg/dL (0.2-1.0) 07/07/17 23:51 Ur Leukocyte Esterase Negative (NEGATIVE) 07/07/17 23:51 Urine WBC (Auto) 2 /hpf (3-5) 07/07/17 23:51 Urine RBC (Auto) 1 /hpf (0-3) 07/07/17 23:51 Ur Epithelial Cells Rare /HPF (FEW) 07/07/17 23:51 Urine Bacteria Rare /hpf (NONE SEEN) 07/07/17 23:51 Hyaline Casts 24 /lpf 07/07/17 23:51 Urine Mucus Many 07/07/17 23:51 RPR Titer Nonreactive (NONREACTIVE) 07/08/17 06:00 Assessment: 07/09/17 12:15 WITHDRAWAL SYMPTOM Plan: CONTINUE DETOX ,INITIAL GLUCOSE IS 138,BGM MONITORING
[2017-07-09] MEDS: amLODIPine BESYLATE 5 MG TABLET (FP) PO SCH (12:40)
[2017-07-09] MEDS: HYDROCHLOROTHIAZIDE 25 MG TABLET (FP) PO SCH (12:41)
[2017-07-09] MEDS: chlordiazePOXIDE 5 MG CAPSULE PO SCH ×2 (17:51→22:18)
[2017-07-09] MEDS: THIAMINE HCL 100 MG TABLET (FP) PO SCH (22:19)
[2017-07-09] MEDS: MONTELUKAST NA 10 MG TABLET PO SCH (22:19)
[2017-07-09] MEDS: QUEtiapine FUMARATE 50 MG TABLET PO SCH (22:19)
[2017-07-10] MEDS: chlordiazePOXIDE 5 MG CAPSULE PO SCH ×2 (05:29→10:55)
[2017-07-10] MEDS: HYDROCHLOROTHIAZIDE 25 MG TABLET (FP) PO SCH (10:54)
[2017-07-10] MEDS: amLODIPine BESYLATE 5 MG TABLET (FP) PO SCH (10:54)
[2017-07-10] MEDS: PRENATAL VITAMINS W/ FOLIC ACID TABLET (FP) PO SCH (10:54)
[2017-07-10] MEDS: BUDESONIDE/FORMETEROL FUMARATE 160/4.5 mcg INHALER IH SCH ×2 (10:55→22:08)
--- NOTE | 2017-07-10 12:53 | PN ---
S Progress Note (SOAP) Subjective: ALERT,IRRITABLE,INTERRUPTED SLEEP Objective: 07/10/17 12:51 Vital Signs Temperature 98.1 F 07/10/17 09:40 Pulse Rate 64 07/10/17 09:40 Respiratory Rate 16 07/10/17 09:40 Blood Pressure 96/57 07/10/17 09:40 O2 Sat by Pulse Oximetry (%) Assessment: 07/10/17 12:52 WITHDRAWAL SYMPTOM Plan: CONTINUE DETOX,DISCHARGE IN AM AT 0700AM
--- NOTE | 2017-07-10 13:13 | PN ---
Michaela Progress Note Note: PATIENT HAD LACERATION OF RIGHT EYEBROW WITH STITCHES,REFUSED TO HAVE STITCHES REMOVED,STATED WILL SEE HIS OWN PHYSICIAN TO TAKE CARE OF IT
[2017-07-10] MEDS: chlordiazePOXIDE HCL 10 MG CAPSULE PO SCH ×2 (17:09→22:08)
[2017-07-10] MEDS: MONTELUKAST NA 10 MG TABLET PO SCH (22:08)
[2017-07-10] MEDS: QUEtiapine FUMARATE 50 MG TABLET PO SCH (22:08)
[2017-07-10] MEDS: THIAMINE HCL 100 MG TABLET (FP) PO SCH (22:08)
[2017-07-11] MEDS: chlordiazePOXIDE HCL 10 MG CAPSULE PO SCH (05:46)
--- NOTE | 2017-07-11 09:07 | PN ---
S Progress Note (SOAP) Subjective: ALERT,NO COMPLAINT Objective: 07/11/17 09:07 Vital Signs Temperature 96.8 F L 07/11/17 06:02 Pulse Rate 71 07/11/17 06:02 Respiratory Rate 18 07/11/17 06:02 Blood Pressure 105/58 07/11/17 06:02 O2 Sat by Pulse Oximetry (%) Assessment: 07/11/17 09:07 DETOX C 07/11/17 10:08 DETOX COMPLETED,NO WITHDRAWAL SYMPTOM Plan: SUTURES REMOVED FROM RIGHT EYEBROW,DISCHARGE TODAY,FOLLOW UP WITH AFTER CARE PROGRAM ARRANGEMENT
[2017-07-11 09:37] VITALS: BP 108/69; PULSE 78; TEMP 97.1
[2017-07-11] MEDS: amLODIPine BESYLATE 5 MG TABLET (FP) PO SCH (10:05)
[2017-07-11] MEDS: PRENATAL VITAMINS W/ FOLIC ACID TABLET (FP) PO SCH (10:05)
[2017-07-11] MEDS: HYDROCHLOROTHIAZIDE 25 MG TABLET (FP) PO SCH (10:06)
[2017-07-11] MEDS: BUDESONIDE/FORMETEROL FUMARATE 160/4.5 mcg INHALER IH SCH (10:07)
--- NOTE | 2017-07-11 10:30 | DS ---
[facility] Detox Discharge Summary Admission Date: 07/07/17 Discharge Date: 07/11/17 - History Present History: Alcohol Dependence, Cocaine Dependence Pertinent Past History: ASTHMA SYNCOPE WEIGHT LOSS HISTORY OF RIGHT KNEE REPLACEMANT HISTORY OF CANCER OF STOMACH HISTORY OF RIGHT HIP REPLACEMENT - Physical Exam Results Vital Signs: Vital Signs Temperature 97.1 F L 07/11/17 09:36 Pulse Rate 78 07/11/17 09:36 Respiratory Rate 16 07/11/17 09:36 Blood Pressure 108/69 07/11/17 09:36 O2 Sat by Pulse Oximetry (%) Pertinent Admission Physical Exam Findings: WITHDRAWAL SIGNS AND SYMPTOM Vital Signs Temperature 97.1 F L 07/11/17 09:36 Pulse Rate 78 07/11/17 09:36 Respiratory Rate 16 07/11/17 09:36 Blood Pressure 108/69 07/11/17 09:36 O2 Sat by Pulse Oximetry (%) Laboratory Last Values WBC 10.5 K/mm3 (4.0-10.0) H D 07/08/17 06:00 RBC 3.89 M/mm3 (4.00-5.60) L 07/08/17 06:00 Hgb 12.2 GM/dL (11.7-16.9) 07/08/17 06:00 Hct 34.6 % (35.4-49) L 07/08/17 06:00 MCV 88.9 fl (80-96) 07/08/17 06:00 MCH 31.3 pg (25.7-33.7) 07/08/17 06:00 MCHC 35.2 g/dl (32.0-35.9) 07/08/17 06:00 RDW 14.9 % (11.9-15.9) 07/08/17 06:00 Plt Count 410 K/MM3 (134-434) 07/08/17 06:00 MPV 8.9 fl (7.5-11.1) 07/08/17 06:00 Sodium 134 mmol/L (136-145) L 07/08/17 06:00 Potassium 4.3 mmol/L (3.5-5.1) 07/08/17 06:00 Chloride 96 mmol/L (98-107) L 07/08/17 06:00 Carbon Dioxide 28 mmol/L (21-32) 05/09/18 06:00 Anion Gap 10 (8-16) 07/08/17 06:00 BUN 13 mg/dL (7-18) D 07/08/17 06:00 Creatinine 0.8 mg/dL (0.7-1.3) 07/08/17 06:00 Creat Clearance w eGFR > 60 (>60) 07/08/17 06:00 POC Glucometer 100 UNITS (80-120) 07/11/17 05:44 Random Glucose 138 mg/dL (74-106) H D 07/08/17 06:00 Calcium 9.2 mg/dL (8.5-10.1) 07/08/17 06:00 Total Bilirubin 0.8 mg/dL (0.2-1.0) D 07/08/17 06:00 AST 80 U/L (15-37) H D 07/08/17 06:00 ALT 72 U/L (12-78) D 07/08/17 06:00 Alkaline Phosphatase 90 U/L (45-117) 07/08/17 06:00 Total Protein 8.3 g/dl (6.4-8.2) H 07/08/17 06:00 Albumin 4.7 g/dl (3.4-5.0) 07/08/17 06:00 Urine Color Teresa 07/07/17 23:51 Urine Appearance Slcloudy 07/07/17 23:51 Urine pH 6.0 (5.0-8.0) 07/07/17 23:51 Ur Specific [place] 1.024 (1.001-1.035) 07/07/17 23:51 Urine Protein 2+ (NEGATIVE) H 07/07/17 23:51 Urine Glucose (UA) Negative (NEGATIVE) 07/07/17 23:51 Urine Ketones Trace (NEGATIVE) H 07/07/17 23:51 Urine Blood Negative (NEGATIVE) 07/07/17 23:51 Urine Nitrite Negative (NEGATIVE) 07/07/17 23:51 Urine Bilirubin Negative (<2.0 mg/dL) 07/07/17 23:51 Urine Urobilinogen 4.0 e.u/dl mg/dL (0.2-1.0) 07/07/17 23:51 Ur Leukocyte Esterase Negative (NEGATIVE) 07/07/17 23:51 Urine WBC (Auto) 2 /hpf (3-5) 07/07/17 23:51 Urine RBC (Auto) 1 /hpf (0-3) 07/07/17 23:51 Ur Epithelial Cells Rare /HPF (FEW) 07/07/17 23:51 Urine Bacteria Rare /hpf (NONE SEEN) 07/07/17 23:51 Hyaline Casts 24 /lpf 07/07/17 23:51 Urine Mucus Many 07/07/17 23:51 RPR Titer Nonreactive (NONREACTIVE) 07/08/17 06:00 - Treatment Hospital Course: Detox Protocol Followed, Detoxed Safely, Responded well, Discharged Condition Good Patient has Accepted a Rehab Referral to: FOLLOW UP WITH AFTER CARE PROGRAM ARRANGEEMENT - Medication Discharge Medications: Ambulatory Orders Aripiprazole [Abilify] 10 mg PO DAILY #30 tablet 08/20/15 Albuterol Sulfate Inhaler - [Ventolin HFA Inhaler -] 2 inh PO Q4H PRN #1 inhaler 03/23/17 Amlodipine Besylate [Norvasc -] 5 mg PO DAILY #30 tablet 03/23/17 Budesonide/Formeterol Fumarate [SYMBICORT 160/4.5mcg -] 1 inh PO BID #1 inhaler 03/23/17 Hydrochlorothiazide [Hctz -] 25 mg PO DAILY #30 tablet 03/23/17 Trazodone HCl 100 mg PO HS #30 tablet 03/23/17 Montelukast Sodium [Singulair] 10 mg PO HS 05/22/17 - Diagnosis (1) Alcohol dependence with uncomplicated withdrawal Current Visit: No Status: Acute (2) Asthma Current Visit: No Status: Chronic Qualifiers: Asthma severity: mild Asthma persistence: unspecified Asthma complication type: uncomplicated Qualified Code(s): J45.909 - Unspecified asthma, uncomplicated (3) Cannabis dependence Current Visit: Yes Status: Chronic (4) History of knee replacement Current Visit: No Status: Chronic Qualifiers: (5) Schizoaffective disorder Current Visit: No Status: Chronic (6) Syncope Current Visit: No Status: Chronic (7) Weight loss Current Visit: No Status: Chronic (8) History of cancer of stomach Current Visit: Yes Status: Acute (9) History of right hip replacement Current Visit: No Status: Acute (10) History of stomach cancer Current Visit: No Status: Chronic - AMA Did Patient Leave Against Medical Advice: No
== END 2017-07-11 10:17 | disposition home or self-care (01) | DRG 774 ==
LOC: YASAS 10:54 → Y6N 13:46
PROVIDERS: ADMIT Surgery; ATTEND Surgery
PROC: HZ2ZZZZ Detoxification Services for Substance Abuse Treatment (ICD-10-PCS; principal; 2017-07-07)
DX: F10.230 Alcohol dependence with withdrawal, uncomplicated (principal); F14.20 Cocaine dependence, uncomplicated; F12.20 Cannabis dependence, uncomplicated; F25.9 Schizoaffective disorder, unspecified; F10.282 Alcohol dependence with alcohol-induced sleep disorder; R55 Syncope and collapse; Z85.028 Personal history of other malignant neoplasm of stomach; Z96.641 Presence of right artificial hip joint
CPT/HCPCS: 36415; 80053; 81003; 81015; 82962; 85027; 86593; 93005; 93010

== ENCOUNTER 2018-02-05 09:21 | Inpatient (IN) | payer OTHER ==
[2018-02-05 15:44] VITALS: BMI 17.6
--- NOTE | 2018-02-05 16:20 | HP ---
CIWA Score Nausea/Vomitin-No Nausea/No Vomiting Muscle Tremors: None Anxiety: 0-No Anxiety, at Ease Agitation: 0-Normal Activity Paroxysmal Sweats: No Perspiration Orientation: 0-Oriented Tacttile Disturbances: 0-None Auditory Disturbances: 0-None Visual Disturbances: 0-None Headache: 0-None Present CIWA-Ar Total Score: 0 - Admission Criteria OASAS Guidelines: Admission for Medically Managed Detox: Requires at least one of the followin. CIWA greater than 12 2. Seizures within the past 24 hours 3. Delirium tremens within the past 24 hours 4. Hallucinations within the past 24 hours 5. Acute intervention needed for co occurring medical disorder 6. Acute intervention needed for co occurring psychiatric disorder 7. Severe withdrawal that cannot be handled at a lower level of care (continued vomiting, continued diarrhea, abnormal vital signs) requiring intravenous medication and/or fluids 8. 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 Utox + BZO , was at [facility] since yesterday , states was given Librium x one now feeling better tobacco 1/2 ppd , requesting nrt w/ gum pmhx : htn, asthma ( NH/NI dx at ), copd PSHx : r hip thr > 5 years ago, r femur , r jaw & revision 2018 psych : denies Exam Limitations: No Limitations - Ebola screening Have you traveled outside of the country in the last 21 days: No Have you had contact with anyone from an Ebola affected area: No Have you been sick,other than usual withdrawal symptoms: No Do you have a fever: No - Review of Systems Constitutional: See HPI EENT: reports: No Symptoms Reported, Other (glasses for reading and distance , missing teeth) Respiratory: reports: Shortness of Breath Cardiac: reports: No Symptoms Reported GI: reports: No Symptoms Reported : reports: No Symptoms Reported Musculoskeletal: reports: No Symptoms Reported Neuro: reports: No Symptoms reported Psychiatric: reports: Orientated x3 Patient History - Patient Medical History Hx Anemia: Yes (Uncertain about type.) Hx Asthma: Yes Hx Chronic Obstructive Pulmonary Disease (COPD): No Hx Cancer: Yes (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) Hx Cardiac Disorders: No Hx Congestive Heart Failure: No Hx Hypertension: Yes Hx Hypercholesterolemia: No Hx Pacemaker: No HX Cerebrovascular Accident: No Hx Seizures: No Hx Dementia: No Hx Diabetes: No Hx Gastrointestinal Disorders: Yes (acid reflux) Hx Liver Disease: No Hx Genitourinary Disorders: No Hx Sexually Transmitted Disorders: No Hx Renal Disease (ESRD): No Hx Thyroid Disease: No Hx Human Immunodeficiency Virus (HIV): No (Last Tested within last 6 months: NEGATIVE.) Hx Hepatitis C: No Hx Depression: No Hx Suicide Attempt: No Hx Bipolar Disorder: No Hx Schizophrenia: No - Patient Surgical History Past Surgical History: Yes Hx Neurologic Surgery: No Hx Cataract Extraction: No Hx Cardiac Surgery: No Hx Lung Surgery: No Hx Breast Surgery: No Hx Breast Biopsy: No Hx Abdominal Surgery: No Hx Appendectomy: No Hx Cholecystectomy: No Hx Genitourinary Surgery: No Hx Section: No Hx Orthopedic Surgery: Yes (R hip and R knee replacement (2016).) Hx Hysterectomy: No Other Surgical History: FX. JAW S/P PLATE AND SCREWS (approx. 10 years ago). Anesthesia Reaction: No - PPD History Previous Implant?: Yes Documented Results: Negative w/proof Implanted On Prior [facility] Admission?: Yes Date: 12/02/16 Results: 0 mm - Smoking Cessation Smoking history: Current every day smoker Have you smoked in the past 12 months: Yes Aproximately how many cigarettes per day: 10 Cigars Per Day: 0 Hx Chewing Tobacco Use: No Initiated information on smoking cessation: No - Substances Abused Alcohol-vodka/beer Route: Oral Frequency: Daily Amount used: 2 pts./2-6 pks. Age of first use: 11 Date of Last Use: 02/05/18 Family Disease History - Family Disease History Family Disease History: CA: Mother (, stomach cancer), Sister ( , stomach cancer), Other: Father (, ? unknown cause, etoh) Admission Physical Exam [facility] - Vital Signs Vital Signs: Vital Signs - 24 hr 02/05/18 15:33 Pulse Rate 110 H Respiratory 18 Rate Blood Pressure 157/89 - Physical General Appearance: Yes: Appropriately Dressed, Mild Distress, Intoxicated HEENTM: Yes: EOMI, Hearing grossly Normal, Normocephalic, Normal Voice, Other ( edentulous) Respiratory: Yes: Chest Non-Tender, Lungs Clear, Normal Breath Sounds Neck: Yes: No masses,lesions,Nodules, Trachea in good position Cardiology: Yes: Regular Rhythm, Regular Rate, S1, S2, Tachycardia Abdominal: Yes: Normal Bowel Sounds, Non Tender, Soft Back: Yes: Normal Inspection Musculoskeletal: Yes: full range of Motion, Gait Steady Extremities: Yes: Normal Capillary Refill Neurological: Yes: Motor Strength 5/5 Integumentary: Yes: Normal Color, Dry, Warm - Diagnostic (1) Alcohol dependence with uncomplicated withdrawal Current Visit: No Status: Acute BHS Breath Alcohol Content Breath Alcohol Content: 0.041 Urine Drug Screen - Results Drug Screen Negative: No Urine Drug Screen Results: BZO-Benzodiazepines
[2018-02-05] MEDS ORDERED: MENTHOL/PHENOL 1 EACH UD MM PRN (16:30)
[2018-02-05] MEDS ORDERED: MAGNESIUM HYDROX 2400MG/30ML ORAL SUSPENSION 30 ML CUP PO PRN (16:30)
[2018-02-05] MEDS ORDERED: chlordiazePOXIDE HCL 25 MG CAPSULE PO PRN (16:30)
[2018-02-05] MEDS ORDERED: NICOTINE POLACRILEX 2 MG GUM BC PRN (16:30)
[2018-02-05] MEDS ORDERED: MAGNESIUM CITRATE 300 ML BOTTLE PO PRN (16:30)
[2018-02-05] MEDS ORDERED: ACETAMINOPHEN 325 MG TABLET (FP) PO PRN (16:30)
[2018-02-05] MEDS ORDERED: MAG HYDROX/AL HYDROX/SIMETH 30 ML UNIT-DOSE CUP PO PRN (16:30)
[2018-02-05] MEDS ORDERED: IBUPROFEN 400 MG TABLET (FP) PO PRN (16:30)
[2018-02-05] MEDS ORDERED: P-EPHED 60MG/TRIPROLIDI 2.5MG TABLET PO PRN (16:30)
[2018-02-05] MEDS ORDERED: guaiFENesin/D-METHORPHAN HB 10 ML UNIT-DOSE CUPS PO PRN (16:30)
[2018-02-05] MEDS ORDERED: traZODone HCL 50 MG TABLET (FP) PO PRN (16:32)
[2018-02-05] MEDS ORDERED: ALBUTEROL SO4 8 GM HFA INHALER IH PRN (16:33)
[2018-02-05] MEDS ORDERED: ALBUTEROL SO4 0.083% IH SOL 2.5 MG/3 ML VIAL.NEB. NEB PRN (16:34)
[2018-02-05] MEDS ORDERED: METOPROLOL TARTRATE 25 MG TABLET (FP) PO ONE (17:30)
[2018-02-05] MEDS: MELATONIN 5 MG TABLETS PO PRN (22:24)
[2018-02-05] MEDS: chlordiazePOXIDE HCL 25 MG CAPSULE PO SCH (22:24)
[2018-02-05] MEDS: BUDESONIDE/FORMETEROL FUMARATE 160/4.5 mcg INHALER IH SCH (22:24)
[2018-02-05] MEDS: THIAMINE HCL 100 MG TABLET (FP) PO SCH (22:24)
[2018-02-06] MEDS: chlordiazePOXIDE HCL 25 MG CAPSULE PO SCH ×4 (06:04→22:16)
[2018-02-06] MEDS: BUDESONIDE/FORMETEROL FUMARATE 160/4.5 mcg INHALER IH SCH ×2 (10:16→22:17)
[2018-02-06] MEDS: PRENATAL VITAMINS W/ FOLIC ACID TABLET (FP) PO SCH (10:18)
[2018-02-06 10:58] LABS: HEMOGLOBIN 10.1 GM/dL (11.7-16.9); MCH 26.1 pg (25.7-33.7); MCHC 32.5 g/dl (32.0-35.9); MEAN CELL VOLUME 80.4 fl (80-96); MEAN PLT VOLUME 8.6 fl (7.5-11.1); PLATELET COUNT 337 K/MM3 (134-434); RBC 3.85 M/mm3 (4.00-5.60); RDW 17.9 % (11.9-15.9); WHITE BLOOD COUNT 5.5 K/mm3 (4.0-10.0)
--- NOTE | 2018-02-06 11:30 | PN ---
S CIWA - CIWA Score Nausea/Vomitin (stomach cramps) Muscle Tremors: 4-Moderate,w/Arms Extend Anxiety: 4-Mod. Anxious/Guarded Agitation: 4-Moderately Restless Paroxysmal Sweats: 1-Minimal Palms Moist Orientation: 0-Oriented Tacttile Disturbances: 0-None Auditory Disturbances: 0-None Visual Disturbances: 0-None Headache: 0-None Present CIWA-Ar Total Score: 15 BHS Progress Note (SOAP) Subjective: ANXIETY, STOMACH CRAMPS, INTERMITTENT SLEEP. Objective: Vital Signs (72 hours) 02/06/18 02/06/18 02/06/18 06:00 06:24 06:30 Temperature 97.8 F Pulse Rate 60 59 L 59 L Respiratory 18 18 18 Rate Blood Pressure 152/86 Laboratory Tests 02/06/18 02/06/18 02/06/18 07:50 07:50 07:50 WBC 5.5 RBC 3.85 L Hgb 10.1 L Hct 31.0 L MCV 80.4 MCH 26.1 D MCHC 32.5 RDW 17.9 H Plt Count 337 D MPV 8.6 D Sodium 138 Potassium 4.3 Chloride 102 Carbon Dioxide 26 Anion Gap 9 BUN 19 H Creatinine 0.8 Creat Clearance w eGFR > 60 Random Glucose 86 Calcium 8.8 Total Bilirubin 0.8 AST 20 ALT 23 Alkaline Phosphatase 81 Total Protein 6.6 Albumin 3.7 RPR Titer Nonreactive 02/06/18 02/06/18 02/06/18 11:30 11:31 12:00 Temperature 98.6 F Pulse Rate 80 88 80 Respiratory 18 18 18 Rate Blood Pressure 136/86 02/07/18 15:14 Assessment: WITHDRAWAL SX Plan: CONTINUE DETOX
[2018-02-06] MEDS: amLODIPine BESYLATE 5 MG TABLET (FP) PO SCH (12:09)
[2018-02-06] MEDS: HYDROCHLOROTHIAZIDE 25 MG TABLET (FP) PO SCH (12:09)
[2018-02-06 12:32] LABS: ALBUMIN 3.7 g/dl (3.4-5.0); ALK PHOS 81 U/L (45-117); ANION GAP 9 MMOL/L (8-16); BILIRUBIN,TOTAL 0.8 mg/dL (0.2-1); BLOOD UREA NITROGEN 19 mg/dL (7-18); CALCIUM 8.8 mg/dL (8.5-10.1); CHLORIDE 102 mmol/L (98-107); CO2 26 mmol/L (21-32); CREATININE 0.8 mg/dL (0.55-1.3); GLUCOSE,RANDOM 86 mg/dL (74-106); POTASSIUM 4.3 mmol/L (3.5-5.1); SGOT/AST 20 U/L (15-37); SGPT/ALT 23 U/L (13-61); SODIUM 138 mmol/L (136-145); TOT PROT 6.6 g/dl (6.4-8.2)
[2018-02-06] MEDS: THIAMINE HCL 100 MG TABLET (FP) PO SCH (22:16)
[2018-02-06] MEDS: MELATONIN 5 MG TABLETS PO PRN (22:17)
[2018-02-07] MEDS: chlordiazePOXIDE HCL 25 MG CAPSULE PO SCH ×3 (06:11→17:30)
[2018-02-07] MEDS: amLODIPine BESYLATE 5 MG TABLET (FP) PO SCH (10:50)
[2018-02-07] MEDS: HYDROCHLOROTHIAZIDE 25 MG TABLET (FP) PO SCH (10:51)
[2018-02-07] MEDS: BUDESONIDE/FORMETEROL FUMARATE 160/4.5 mcg INHALER IH SCH ×2 (10:51→22:05)
[2018-02-07] MEDS: PRENATAL VITAMINS W/ FOLIC ACID TABLET (FP) PO SCH (10:51)
--- NOTE | 2018-02-07 18:21 | PN ---
S CIWA - CIWA Score Nausea/Vomitin-Mild Nausea/No Vomiting Muscle Tremors: 3 Anxiety: 3 Agitation: 3 Paroxysmal Sweats: 2 Orientation: 0-Oriented Tacttile Disturbances: 0-None Auditory Disturbances: 0-None Visual Disturbances: 0-None Headache: 1-Very Mild CIWA-Ar Total Score: 13 S Progress Note (SOAP) Subjective: Interrupted sleep, anxious Objective: 02/07/18 18:20 Last Vital Signs Temp Pulse Resp BP Pulse Ox 98.6 F 100 H 18 107/65 02/07/18 14:48 02/07/18 14:48 02/07/18 14:48 02/07/18 14:48 Laboratory Tests 02/06/18 02/06/18 02/06/18 07:50 07:50 07:50 WBC 5.5 RBC 3.85 L Hgb 10.1 L Hct 31.0 L MCV 80.4 MCH 26.1 D MCHC 32.5 RDW 17.9 H Plt Count 337 D MPV 8.6 D Sodium 138 Potassium 4.3 Chloride 102 Carbon Dioxide 26 Anion Gap 9 BUN 19 H Creatinine 0.8 Creat Clearance w eGFR > 60 Random Glucose 86 Calcium 8.8 Total Bilirubin 0.8 AST 20 ALT 23 Alkaline Phosphatase 81 Total Protein 6.6 Albumin 3.7 RPR Titer Nonreactive Labs reviewed Assessment: 02/07/18 18:20 Withdrawal symptoms Plan: Continue detox Encouraged PO water intake
[2018-02-07] MEDS: chlordiazePOXIDE 5 MG CAPSULE PO SCH (22:05)
[2018-02-07] MEDS: THIAMINE HCL 100 MG TABLET (FP) PO SCH (22:05)
[2018-02-07] MEDS: MELATONIN 5 MG TABLETS PO PRN (22:06)
[2018-02-08] MEDS: chlordiazePOXIDE 5 MG CAPSULE PO SCH ×3 (06:05→17:12)
[2018-02-08] MEDS: BUDESONIDE/FORMETEROL FUMARATE 160/4.5 mcg INHALER IH SCH ×2 (10:46→22:14)
[2018-02-08] MEDS: amLODIPine BESYLATE 5 MG TABLET (FP) PO SCH (10:47)
[2018-02-08] MEDS: PRENATAL VITAMINS W/ FOLIC ACID TABLET (FP) PO SCH (10:47)
[2018-02-08] MEDS: HYDROCHLOROTHIAZIDE 25 MG TABLET (FP) PO SCH (10:47)
--- NOTE | 2018-02-08 13:55 | PN ---
BHS Progress Note (SOAP) Subjective: feeling better no tremor less sweat no gi distress Objective: 02/08/18 13:53 Vital Signs Temperature 96.7 F L 02/08/18 13:20 Pulse Rate 88 02/08/18 13:20 Respiratory Rate 18 02/08/18 13:20 Blood Pressure 138/80 02/08/18 13:20 O2 Sat by Pulse Oximetry (%) Laboratory Last Values WBC 5.5 K/mm3 (4.0-10.0) 02/06/18 07:50 RBC 3.85 M/mm3 (4.00-5.60) L 02/06/18 07:50 Hgb 10.1 GM/dL (11.7-16.9) L 02/06/18 07:50 Hct 31.0 % (35.4-49) L 02/06/18 07:50 MCV 80.4 fl (80-96) 02/06/18 07:50 MCH 26.1 pg (25.7-33.7) D 02/06/18 07:50 MCHC 32.5 g/dl (32.0-35.9) 02/06/18 07:50 RDW 17.9 % (11.9-15.9) H 02/06/18 07:50 Plt Count 337 K/MM3 (134-434) D 02/06/18 07:50 MPV 8.6 fl (7.5-11.1) D 02/06/18 07:50 Sodium 138 mmol/L (136-145) 02/06/18 07:50 Potassium 4.3 mmol/L (3.5-5.1) 02/06/18 07:50 Chloride 102 mmol/L (98-107) 02/06/18 07:50 Carbon Dioxide 26 mmol/L (21-32) 02/06/18 07:50 Anion Gap 9 MMOL/L (8-16) 02/06/18 07:50 BUN 19 mg/dL (7-18) H 02/06/18 07:50 Creatinine 0.8 mg/dL (0.55-1.3) 02/06/18 07:50 Creat Clearance w eGFR > 60 (>60) 02/06/18 07:50 Random Glucose 86 mg/dL (74-106) 02/06/18 07:50 Calcium 8.8 mg/dL (8.5-10.1) 02/06/18 07:50 Total Bilirubin 0.8 mg/dL (0.2-1) 02/06/18 07:50 AST 20 U/L (15-37) 02/06/18 07:50 ALT 23 U/L (13-61) 02/06/18 07:50 Alkaline Phosphatase 81 U/L (45-117) 02/06/18 07:50 Total Protein 6.6 g/dl (6.4-8.2) 02/06/18 07:50 Albumin 3.7 g/dl (3.4-5.0) 02/06/18 07:50 RPR Titer Nonreactive (NONREACTIVE) 02/06/18 07:50 lab noted Assessment: 02/08/18 13:54 mild withdrawal sx Plan: medically supervised detox
[2018-02-08] MEDS: MELATONIN 5 MG TABLETS PO PRN (22:14)
[2018-02-08] MEDS: THIAMINE HCL 100 MG TABLET (FP) PO SCH (22:14)
[2018-02-08] MEDS: chlordiazePOXIDE HCL 10 MG CAPSULE PO SCH (22:14)
[2018-02-09] MEDS: chlordiazePOXIDE HCL 10 MG CAPSULE PO SCH (06:26)
[2018-02-09 06:31] VITALS: BP 100/58; PULSE 69; TEMP 97.7
--- NOTE | 2018-02-09 09:33 | DS ---
[facility] Detox Discharge Summary Admission Date: 02/05/18 Discharge Date: 02/09/18 - History Present History: Alcohol Dependence Additional Comments: 57 years old male admitted on 02/05/18 for alcohol withdrawal stability completed alcohol detox regimen tolerated well alert no acute distress aftercare [facility] - Physical Exam Results Vital Signs: Vital Signs Temperature 97.7 F 02/09/18 06:30 Pulse Rate 69 02/09/18 06:30 Respiratory Rate 18 02/09/18 06:30 Blood Pressure 100/58 L 02/09/18 06:30 O2 Sat by Pulse Oximetry (%) Pertinent Admission Physical Exam Findings: alcohol withdrawal sx Vital Signs Temperature 97.7 F 02/09/18 06:30 Pulse Rate 69 02/09/18 06:30 Respiratory Rate 18 02/09/18 06:30 Blood Pressure 100/58 L 02/09/18 06:30 O2 Sat by Pulse Oximetry (%) Laboratory Last Values WBC 5.5 K/mm3 (4.0-10.0) 02/06/18 07:50 RBC 3.85 M/mm3 (4.00-5.60) L 02/06/18 07:50 Hgb 10.1 GM/dL (11.7-16.9) L 02/06/18 07:50 Hct 31.0 % (35.4-49) L 02/06/18 07:50 MCV 80.4 fl (80-96) 02/06/18 07:50 MCH 26.1 pg (25.7-33.7) D 02/06/18 07:50 MCHC 32.5 g/dl (32.0-35.9) 02/06/18 07:50 RDW 17.9 % (11.9-15.9) H 02/06/18 07:50 Plt Count 337 K/MM3 (134-434) D 02/06/18 07:50 MPV 8.6 fl (7.5-11.1) D 02/06/18 07:50 Sodium 138 mmol/L (136-145) 02/06/18 07:50 Potassium 4.3 mmol/L (3.5-5.1) 02/06/18 07:50 Chloride 102 mmol/L (98-107) 02/06/18 07:50 Carbon Dioxide 26 mmol/L (21-32) 02/06/18 07:50 Anion Gap 9 MMOL/L (8-16) 02/06/18 07:50 BUN 19 mg/dL (7-18) H 02/06/18 07:50 Creatinine 0.8 mg/dL (0.55-1.3) 02/06/18 07:50 Creat Clearance w eGFR > 60 (>60) 02/06/18 07:50 Random Glucose 86 mg/dL (74-106) 02/06/18 07:50 Calcium 8.8 mg/dL (8.5-10.1) 02/06/18 07:50 Total Bilirubin 0.8 mg/dL (0.2-1) 02/06/18 07:50 AST 20 U/L (15-37) 02/06/18 07:50 ALT 23 U/L (13-61) 02/06/18 07:50 Alkaline Phosphatase 81 U/L (45-117) 02/06/18 07:50 Total Protein 6.6 g/dl (6.4-8.2) 02/06/18 07:50 Albumin 3.7 g/dl (3.4-5.0) 02/06/18 07:50 RPR Titer Nonreactive (NONREACTIVE) 02/06/18 07:50 lab noted - Treatment Hospital Course: Detox Protocol Followed, Detoxed Safely, Responded well, Discharged Condition Good, Rehab Referral Accepted Patient has Accepted a Rehab Referral to: [facility] - Medication Discharge Medications: Ambulatory Orders Aripiprazole [Abilify] 10 mg PO DAILY #30 tablet 08/20/15 Albuterol Sulfate Inhaler - [Ventolin HFA Inhaler -] 2 inh PO Q4H PRN #1 inhaler 02/08/18 Amlodipine Besylate [Norvasc -] 5 mg PO DAILY #30 tablet 02/08/18 Budesonide/Formeterol Fumarate [SYMBICORT 160/4.5mcg -] 1 inh PO BID #1 inhaler 02/08/18 Hydrochlorothiazide [Hctz -] 25 mg PO DAILY #30 tablet 02/08/18 Montelukast Sodium [Singulair] 10 mg PO HS #30 tablet 02/08/18 - Diagnosis (1) Alcohol dependence with uncomplicated withdrawal Status: Acute (2) Drug-induced mood disorder Status: Suspected (3) Asthma Status: Chronic Qualifiers: Asthma severity: mild Asthma persistence: unspecified Asthma complication type: uncomplicated Qualified Code(s): J45.909 - Unspecified asthma, uncomplicated (4) COPD (chronic obstructive pulmonary disease) Status: Chronic Qualifiers: COPD type: unspecified COPD Qualified Code(s): J44.9 - Chronic obstructive pulmonary disease, unspecified (5) HTN (hypertension) Status: Chronic Qualifiers: Hypertension type: essential hypertension Qualified Code(s): I10 - Essential (primary) hypertension (6) Nicotine dependence Status: Acute Qualifiers: Nicotine product type: cigarettes Substance use status: in withdrawal Qualified Code(s): F17.213 - Nicotine dependence, cigarettes, with withdrawal (7) Weight loss Status: Acute - AMA Did Patient Leave Against Medical Advice: No
== END 2018-02-09 09:05 | disposition home or self-care (01) | DRG 775 ==
LOC: YASAS 09:21 → Y3N 17:00
PROC: HZ2ZZZZ Detoxification Services for Substance Abuse Treatment (ICD-10-PCS; principal; 2018-02-05)
DX: F10.230 Alcohol dependence with withdrawal, uncomplicated (principal); F17.210 Nicotine dependence, cigarettes, uncomplicated; F19.24 Other psychoactive substance dependence with psychoactive substance-induced mood disorder; I10 Essential (primary) hypertension; J45.909 Unspecified asthma, uncomplicated; J44.9 Chronic obstructive pulmonary disease, unspecified; D64.9 Anemia, unspecified; R63.4 Abnormal weight loss; Z68.1 Body mass index [BMI] 19.9 or less, adult; Z96.641 Presence of right artificial hip joint; Z85.028 Personal history of other malignant neoplasm of stomach
CPT/HCPCS: 36415; 80053; 85027; 86593

== ENCOUNTER 2019-03-01 14:22 | Inpatient (IN) | payer OTHER ==
[2019-03-01 17:08] VITALS: BMI 17.2
--- NOTE | 2019-03-01 19:28 | HP ---
CIWA Score Nausea/Vomitin-Mild Nausea/No Vomiting Muscle Tremors: 3 Anxiety: 3 Agitation: 4-Moderately Restless Paroxysmal Sweats: 3 (Increased facial moisture) Orientation: 0-Oriented Tacttile Disturbances: 0-None Auditory Disturbances: 0-None Visual Disturbances: 0-None Headache: 2-Mild CIWA-Ar Total Score: 16 - Admission Criteria OASAS Guidelines: Admission for Medically Managed Detox: Requires at least one of the followin. CIWA greater than 12 2. Seizures within the past 24 hours 3. Delirium tremens within the past 24 hours 4. Hallucinations within the past 24 hours 5. Acute intervention needed for co occurring medical disorder 6. Acute intervention needed for co occurring psychiatric disorder 7. Severe withdrawal that cannot be handled at a lower level of care (continued vomiting, continued diarrhea, abnormal vital signs) requiring intravenous medication and/or fluids 8. Patient presents the following: CIWA greater than 12 (BRANNON: Down from 0.318 to 0.75) Admission Criteria Met: Admission criteria met Admitting History and Physical - Smoking History Smoking history: Current every day smoker Have you smoked in the past 12 months: Yes Aproximately how many cigarettes per day: 10 - Alcohol/Substance Use Hx Alcohol Use: Yes Admission ROS [facility] - HPI Chief Complaint: "They brought me here because I was drunk" Allergies/Adverse Reactions: Allergies Allergy/AdvReac Type Severity Reaction Status Date / Time No Known Allergies Allergy Verified 03/01/19 17:01 History of Present Illness: 58 yo presents w/ ETOH withdrawal and intoxication seeking detox. [facility] was treated for pneumonia 2 weeks ago w/ antibiotics and prednisone. [facility] complied w/ medications for 7 days. Does not have paperwork. Hx: Multiple detoxes. BRANNON: 0.318 and monitored until BRANNON now: 0.75 Utox: + THC Denies seizures, overdoses. Hx: + blackouts Alcohol use since age 11. Reports currently drinking 4 pts vodka + beer Marijuana use since age 11. 1-2 x/wk Nicotine use since age Smokes 1/2 PPD. Declines patch. Willing to take gum. PMHx: HTN, Asthma/COPD, MHHx: Denies. Denies thoughts of harming self or others. SHx: Homeless. Unemployed. Denies legal issues. Search Terms: Bal Ham, 1960 Search Date: 03/01/2019 07:27:56 PM The Drug Utilization Report below displays all of the controlled substance prescriptions, if any, that your patient has filled in the last twelve months. The information displayed on this report is compiled from pharmacy submissions to the Department, and accurately reflects the information as submitted by the pharmacies. This report was requested by: Hailey Demarco | Reference #: [id number] There are no results for the search terms that you entered. Exam Limitations: Intoxication - Ebola screening Have you traveled outside of the country in the last 21 days: No Have you had contact with anyone from an Ebola affected area: No Have you been sick,other than usual withdrawal symptoms: No Do you have a fever: No - Review of Systems Constitutional: Chills, Changes in sleep (Difficulty falling and staying asleep) , Unintentional Wgt. Loss EENT: reports: Blurred Vision, Dental Problems (No teeth. Chews anad swollows ok ) Respiratory: reports: Shortness of Breath (in a.m.) Cardiac: reports: No Symptoms Reported GI: reports: Nausea, Indigestion (Acid reflux), Abdominal cramping : reports: No Symptoms Reported Musculoskeletal: reports: Back Pain (Chronic sharp back pain unrelated to activity.) Integumentary: reports: No Symptoms Reported Neuro: reports: Headache (Frontal throbbing headache "5") Endocrine: reports: Increased Thirst Hematology: reports: No Symptoms Reported Psychiatric: reports: Orientated x3, Agitated, other (Resistent to answering questions) Patient History - Patient Medical History Hx Anemia: Yes (Ferrous sulfate) Hx Asthma: Yes (Albuterol) Hx Chronic Obstructive Pulmonary Disease (COPD): Yes (Singulair ) Hx Cancer: Yes (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) Hx Cardiac Disorders: No Hx Congestive Heart Failure: No Hx Hypertension: Yes (Norvasc, HCTZ) Hx Hypercholesterolemia: No Hx Pacemaker: No HX Cerebrovascular Accident: No Hx Seizures: No Hx Dementia: No Hx Diabetes: No Hx Gastrointestinal Disorders: Yes (Acid reflux - Not on medication) Hx Liver Disease: No Hx Genitourinary Disorders: No Hx Sexually Transmitted Disorders: No Hx Renal Disease (ESRD): No Hx Thyroid Disease: No Hx Human Immunodeficiency Virus (HIV): No ( NEGATIVE 2018) Hx Hepatitis C: No Hx Depression: No Hx Suicide Attempt: No Hx Bipolar Disorder: No Hx Schizophrenia: No - Patient Surgical History Past Surgical History: Yes Hx Neurologic Surgery: No Hx Cataract Extraction: No Hx Cardiac Surgery: No Hx Lung Surgery: No Hx Breast Surgery: No Hx Breast Biopsy: No Hx Abdominal Surgery: No Hx Appendectomy: No Hx Cholecystectomy: No Hx Genitourinary Surgery: No Hx Section: No Hx Orthopedic Surgery: Yes (R hip and R knee replacement (2016).) Hx Hysterectomy: No Other Surgical History: FX. JAW S/P PLATE AND SCREWS (approx. 10 years ago). Anesthesia Reaction: No - PPD History Previous Implant?: Yes Documented Results: Negative w/proof Date: 12/02/16 Results: 0 mm PPD to be Administered?: Yes - Smoking Cessation Smoking history: Current every day smoker Have you smoked in the past 12 months: Yes Aproximately how many cigarettes per day: 10 Cigars Per Day: 0 Hx Chewing Tobacco Use: No Initiated information on smoking cessation: Yes 'Breaking Loose' booklet given: 03/02/19 - Substance & Tx. History Hx Alcohol Use: Yes Hx Substance Use: Yes Substance Use Type: Alcohol, Cocaine Hx Substance Use Treatment: No (detox, rehab Last tx: 2017) - Substances abused Alcohol Substance route: Oral Frequency: 1-2 times per week Amount used: 6 12 packs/ a day, 4 pints of vodka Age of first use: 11 Date of last use: 03/01/19 Marijuana/Hashish Substance route: Smoking Frequency: 1-2 times per week Amount used: 2-3 Age of first use: 11 Date of last use: 07/20/18 Admission Physical Exam S - Vital Signs Vital Signs: Vital Signs - 24 hr 03/01/19 03/01/19 16:58 18:11 Temperature 97 F L Pulse Rate 99 H 99 H Respiratory 18 18 Rate Blood Pressure 140/89 140/89 - Physical General Appearance: Yes: Mild Distress, Thin, Tremorous, Irritable, Sweating ( Increased facial mositure), Anxious HEENTM: Yes: EOMI, Hearing grossly Normal, Normocephalic, Normal Voice, AKIN, Pharynx Normal Respiratory: Yes: No Respiratory Distress (Pulse Ox = 98%), Wheezing, Other ( Noisy cough - non-productive) Neck: Yes: No masses,lesions,Nodules, Supple Breast: Yes: Breast Exam Deferred Cardiology: Yes: Regular Rhythm, Regular Rate, S1, S2 Abdominal: Yes: Non Tender, Flat, Soft, Increased Bowel Sounds Genitourinary: Yes: Within Normal Limits Back: Yes: Normal Inspection Musculoskeletal: Yes: full range of Motion, Gait Steady Extremities: Yes: Normal Capillary Refill (Peripheral pulses +), Tremors Neurological: Yes: flash designer II-XII NML intact, Fully Oriented, Alert, Motor Strength 5/5 Integumentary: Yes: Normal Color, Warm Lymphatic: Yes: Within Normal Limits - Diagnostic (1) Alcohol dependence with uncomplicated withdrawal Current Visit: Yes Status: Acute (2) Nicotine dependence Current Visit: Yes Status: Chronic Qualifiers: Nicotine product type: cigarettes Substance use status: uncomplicated Qualified Code(s): F17.210 - Nicotine dependence, cigarettes, uncomplicated (3) Asthma Current Visit: Yes Status: Chronic Qualifiers: Asthma severity: unspecified severity Asthma persistence: unspecified Asthma complication type: unspecified Qualified Code(s): J45.909 - Unspecified asthma, uncomplicated (4) Cannabis dependence Current Visit: Yes Status: Chronic (5) GERD (gastroesophageal reflux disease) Current Visit: Yes Status: Chronic Qualifiers: Esophagitis presence: without esophagitis Qualified Code(s): K21.9 - Gastro -esophageal reflux disease without esophagitis (6) HTN (hypertension) Current Visit: Yes Status: Chronic Qualifiers: Hypertension type: essential hypertension Qualified Code(s): I10 - Essential (primary) hypertension (7) Low body mass index (BMI) Current Visit: Yes Status: Chronic (8) COPD (chronic obstructive pulmonary disease) Current Visit: Yes Status: Chronic Qualifiers: COPD type: unspecified COPD Qualified Code(s): J44.9 - Chronic obstructive pulmonary disease, unspecified (9) Cough Current Visit: Yes Status: Chronic Cleared for Admission [facility] - Detox or Rehab S Level of Care: Medically Managed Detox Regimen/Protocol: Librium Claeared for Rehab Admission: No Breathalyzer - Breathalyzer Breathalyzer: 0.318 Urine Drug Screen - Test Device Lot number: [id number] Expiration date: 09/29/20 - Control Is test valid?: Yes - Results Drug screen NEGATIVE: No Urine drug screen results: THC-Marijuana Inpatient Rehab Admission - Rehab Decision to Admit Inpatient rehab admission?: No
[2019-03-02] MEDS ORDERED: MAG HYDROX/AL HYDROX/SIMETH 30 ML UNIT-DOSE CUP PO PRN (01:37)
[2019-03-02] MEDS ORDERED: MELATONIN 5 MG TABLETS PO PRN ×2 (01:37→22:00)
[2019-03-02] MEDS ORDERED: ACETAMINOPHEN 325 MG TABLET (FP) PO PRN ×2 (01:37)
[2019-03-02] MEDS ORDERED: chlordiazePOXIDE 5 MG CAPSULE PO PRN (01:37)
[2019-03-02] MEDS ORDERED: MAGNESIUM CITRATE 300 ML BOTTLE PO PRN (01:37)
[2019-03-02] MEDS ORDERED: chlordiazePOXIDE HCL 25 MG CAPSULE PO ONE (01:37)
[2019-03-02] MEDS ORDERED: IBUPROFEN 400 MG TABLET (FP) PO PRN (01:37)
[2019-03-02] MEDS ORDERED: MAGNESIUM HYDROX 2400MG/30ML ORAL SUSPENSION 30 ML CUP PO PRN (01:37)
[2019-03-02] MEDS ORDERED: MENTHOL/PHENOL 1 EACH UD MM PRN (01:37)
[2019-03-02] MEDS ORDERED: NICOTINE POLACRILEX 2 MG GUM BUC PRN (01:37)
[2019-03-02] MEDS ORDERED: BISMUTH SUBSALICYLATE 524 MG/30 ML UD PO PRN (01:37)
[2019-03-02] MEDS: chlordiazePOXIDE HCL 25 MG CAPSULE PO SCH ×3 (05:37→22:53)
[2019-03-02] MEDS: guaiFENesin 200 MG/10 ML 10 ML UNIT-DOSE CUPS PO SCH ×5 (07:37→23:13)
[2019-03-02] MEDS: ALBUTEROL SO4 0.083% IH SOL 2.5 MG/3 ML VIAL.NEB. NEB SCH ×3 (07:38→17:32)
--- NOTE | 2019-03-02 09:28 | PN ---
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
[2019-03-02] MEDS: HYDROCHLOROTHIAZIDE 25 MG TABLET (FP) PO SCH (10:15)
[2019-03-02] MEDS: PRENATAL VITAMINS W/ FOLIC ACID TABLET (FP) PO SCH (10:15)
[2019-03-02] MEDS: BUDESONIDE/FORMETEROL FUMARATE 80/4.5 mcg INHALER IH SCH ×2 (10:15→22:53)
[2019-03-02] MEDS: ALBUTEROL SO4 8 GM HFA INHALER IH PRN (10:17)
[2019-03-02 10:33] LABS: HEMATOCRIT 28.1 % (35.4-49); HEMOGLOBIN 9.4 GM/dL (11.7-16.9); MCH 26.9 pg (25.7-33.7); MCHC 33.4 g/dl (32.0-35.9); MEAN CELL VOLUME 80.4 fl (80-96); MEAN PLT VOLUME 7.5 fl (7.5-11.1); PLATELET COUNT 561 K/MM3 (134-434); RBC 3.49 M/mm3 (4.00-5.60); RDW 19.2 % (11.9-15.9); WHITE BLOOD COUNT 4.5 K/mm3 (4.0-10.0)
[2019-03-02 10:42] LABS: ALBUMIN 3.3 g/dl (3.4-5.0); BILIRUBIN,TOTAL 0.4 mg/dL (0.2-1); BLOOD UREA NITROGEN 12.4 mg/dL (7-18); CALCIUM 8.6 mg/dL (8.5-10.1); CREATININE 0.8 mg/dL (0.55-1.3); POTASSIUM 4.5 mmol/L (3.5-5.1); TOT PROT 6.7 g/dl (6.4-8.2)
--- NOTE | 2019-03-02 17:45 | EKG ---
Test Reason : Blood Pressure : / mmHG Vent. Rate : 065 BPM Atrial Rate : 065 BPM P-R Int : 142 ms QRS Dur : 086 ms QT Int : 438 ms P-R-T Axes : 080 058 058 degrees QTc Int : 455 ms NORMAL SINUS RHYTHM NORMAL ECG WHEN COMPARED WITH ECG OF 29-AUG-2017 19:45, NO SIGNIFICANT CHANGE WAS FOUND Confirmed by MARIANA SUAREZ MD ([id number]) on 03/02/2019 5:45:21 PM Referred By: Confirmed By:MARIANA SUAREZ MD
[2019-03-02 18:41] LABS: PH,URINE 5.5 (5.0-8.0); URINE APPEARANCE CLEAR; URINE BILIRUBIN NEGATIVE (NEGATIVE); URINE COLOR YELLOW; URINE GLUCOSE (UA) NEGATIVE (NEGATIVE); URINE KETONE NEGATIVE (NEGATIVE); URINE LEUK ESTERASE NEGATIVE (NEGATIVE); URINE NITRITE NEGATIVE (NEGATIVE); URINE PROTEIN NEGATIVE (NEGATIVE); URINE UROBILINOGEN 0.2 mg/dL (0.2-1.0)
[2019-03-02] MEDS: amLODIPine BESYLATE 5 MG TABLET (FP) PO SCH (20:09)
--- NOTE | 2019-03-02 20:35 | PN ---
S Progress Note Note: CBC WBC 4.5 K/mm3 (4.0-10.0) 03/02/19 07:40 RBC 3.49 M/mm3 (4.00-5.60) L 03/02/19 07:40 Hgb 9.4 GM/dL (11.7-16.9) L 03/02/19 07:40 Hct 28.1 % (35.4-49) L D 03/02/19 07:40 MCV 80.4 fl (80-96) 03/02/19 07:40 MCH 26.9 pg (25.7-33.7) 03/02/19 07:40 MCHC 33.4 g/dl (32.0-35.9) 03/02/19 07:40 RDW 19.2 % (11.9-15.9) H 03/02/19 07:40 Plt Count 561 K/MM3 (134-434) H D 03/02/19 07:40 MPV 7.5 fl (7.5-11.1) D 03/02/19 07:40 Plan: Add FESO4 325 mg Po Daily.
[2019-03-02] MEDS ORDERED: amLODIPine BESYLATE 5 MG TABLET (FP) PO SCH (22:00)
[2019-03-02] MEDS: THIAMINE HCL 100 MG TABLET (FP) PO SCH (22:53)
[2019-03-03] MEDS: chlordiazePOXIDE 5 MG CAPSULE PO SCH ×3 (05:35→22:15)
[2019-03-03] MEDS: ALBUTEROL SO4 0.083% IH SOL 2.5 MG/3 ML VIAL.NEB. NEB SCH ×3 (05:37→19:00)
[2019-03-03] MEDS: guaiFENesin 200 MG/10 ML 10 ML UNIT-DOSE CUPS PO SCH ×4 (07:10→23:46)
--- NOTE | 2019-03-03 09:11 | PN ---
S CIWA - CIWA Score Nausea/Vomitin-Mild Nausea/No Vomiting Muscle Tremors: 2 Anxiety: 2 Agitation: 2 Paroxysmal Sweats: 1-Minimal Palms Moist Orientation: 0-Oriented Tacttile Disturbances: 1-Very Mild Itch/Numbness Auditory Disturbances: 0-None Visual Disturbances: 0-None Headache: 0-None Present CIWA-Ar Total Score: 9 BHS Progress Note (SOAP) Subjective: 58 years old male admitted on 03/01/19 for alcohol withdrawal sx management treating with librium detox regimen ate breakfast no trouble chewing nor swallowing food feeling tired today resting in bed health teaching on possible iron related constipation encourage oral fluid Objective: 03/03/19 09:11 Vital Signs Temperature 97.8 F 03/03/19 09:07 Pulse Rate 82 03/03/19 09:07 Respiratory Rate 18 03/03/19 09:07 Blood Pressure 148/89 03/03/19 09:07 O2 Sat by Pulse Oximetry (%) 98 03/02/19 18:02 Laboratory Last Values WBC 4.5 K/mm3 (4.0-10.0) 03/02/19 07:40 RBC 3.49 M/mm3 (4.00-5.60) L 03/02/19 07:40 Hgb 9.4 GM/dL (11.7-16.9) L 03/02/19 07:40 Hct 28.1 % (35.4-49) L D 03/02/19 07:40 MCV 80.4 fl (80-96) 03/02/19 07:40 MCH 26.9 pg (25.7-33.7) 03/02/19 07:40 MCHC 33.4 g/dl (32.0-35.9) 03/02/19 07:40 RDW 19.2 % (11.9-15.9) H 03/02/19 07:40 Plt Count 561 K/MM3 (134-434) H D 03/02/19 07:40 MPV 7.5 fl (7.5-11.1) D 03/02/19 07:40 Sodium 142 mmol/L (136-145) 03/02/19 07:40 Potassium 4.5 mmol/L (3.5-5.1) 03/02/19 07:40 Chloride 110 mmol/L (98-107) H 03/02/19 07:40 Carbon Dioxide 27 mmol/L (21-32) 03/02/19 07:40 Anion Gap 5 MMOL/L (8-16) L 03/02/19 07:40 BUN 12.4 mg/dL (7-18) 03/02/19 07:40 Creatinine 0.8 mg/dL (0.55-1.3) 03/02/19 07:40 Est GFR (CKD-EPI)AfAm 113.33 03/02/19 07:40 Est GFR (CKD-EPI)NonAf 97.78 03/02/19 07:40 Random Glucose 81 mg/dL (74-106) 03/02/19 07:40 Calcium 8.6 mg/dL (8.5-10.1) 03/02/19 07:40 Total Bilirubin 0.4 mg/dL (0.2-1) 03/02/19 07:40 AST 11 U/L (15-37) L 03/02/19 07:40 ALT 15 U/L (13-61) 03/02/19 07:40 Alkaline Phosphatase 63 U/L (45-117) 03/02/19 07:40 Total Protein 6.7 g/dl (6.4-8.2) 03/02/19 07:40 Albumin 3.3 g/dl (3.4-5.0) L 03/02/19 07:40 Urine Color Yellow 03/02/19 12:59 Urine Appearance Clear 03/02/19 12:59 Urine pH 5.5 (5.0-8.0) D 03/02/19 12:59 Ur Specific [place] 1.017 (1.010-1.035) 03/02/19 12:59 Urine Protein Negative (NEGATIVE) 03/02/19 12:59 Urine Glucose (UA) Negative (NEGATIVE) 03/02/19 12:59 Urine Ketones Negative (NEGATIVE) 03/02/19 12:59 Urine Blood Negative (NEGATIVE) 03/02/19 12:59 Urine Nitrite Negative (NEGATIVE) 03/02/19 12:59 Urine Bilirubin Negative (NEGATIVE) 03/02/19 12:59 Urine Urobilinogen 0.2 mg/dL (0.2-1.0) 03/02/19 12:59 Ur Leukocyte Esterase Negative (NEGATIVE) 03/02/19 12:59 lab noted anemia hypertension 03/03/19 09:14 lisinopril 5 mg po daily Assessment: 03/03/19 09:15 alcohol withdrawal Plan: librium regimen
[2019-03-03] MEDS: BUDESONIDE/FORMETEROL FUMARATE 80/4.5 mcg INHALER IH SCH ×2 (10:09→22:15)
[2019-03-03] MEDS: HYDROCHLOROTHIAZIDE 25 MG TABLET (FP) PO SCH (10:09)
[2019-03-03] MEDS: amLODIPine BESYLATE 5 MG TABLET (FP) PO SCH (10:09)
[2019-03-03] MEDS: PRENATAL VITAMINS W/ FOLIC ACID TABLET (FP) PO SCH (10:09)
[2019-03-03] MEDS: ALBUTEROL SO4 8 GM HFA INHALER IH PRN (10:10)
[2019-03-03] MEDS: FERROUS SO4 325 MG TABLET (FP) PO SCH (10:10)
[2019-03-03] MEDS ORDERED: PNEUMOCOCCAL 23 VACCINE 0.5 ML VIAL IM ONE (12:00)
[2019-03-03] MEDS: THIAMINE HCL 100 MG TABLET (FP) PO SCH (22:15)
[2019-03-03] MEDS: LISINOPRIL 5 MG TABLET (FP) PO SCH (22:15)
[2019-03-04] MEDS ORDERED: chlordiazePOXIDE 5 MG CAPSULE PO PRN
[2019-03-04] MEDS: chlordiazePOXIDE HCL 10 MG CAPSULE PO SCH ×3 (05:15→22:33)
[2019-03-04] MEDS: guaiFENesin 200 MG/10 ML 10 ML UNIT-DOSE CUPS PO SCH ×4 (05:16→23:20)
[2019-03-04] MEDS ORDERED: LIDOCAINE 5% TOPICAL PATCH TP ONE (09:55)
[2019-03-04] MEDS ORDERED: LIDOCAINE 5% TOPICAL PATCH TP SCH (10:00)
[2019-03-04] MEDS: HYDROCHLOROTHIAZIDE 25 MG TABLET (FP) PO SCH (10:06)
[2019-03-04] MEDS: FERROUS SO4 325 MG TABLET (FP) PO SCH (10:06)
[2019-03-04] MEDS: amLODIPine BESYLATE 5 MG TABLET (FP) PO SCH (10:06)
[2019-03-04] MEDS: PRENATAL VITAMINS W/ FOLIC ACID TABLET (FP) PO SCH (10:06)
[2019-03-04] MEDS: BUDESONIDE/FORMETEROL FUMARATE 80/4.5 mcg INHALER IH SCH ×2 (10:07→22:34)
--- NOTE | 2019-03-04 11:23 | PN ---
[facility] CIWA - CIWA Score Nausea/Vomitin-Mild Nausea/No Vomiting Muscle Tremors: 1-None Visible, but [place] Anxiety: 2 Agitation: 1-Slight > Activity Paroxysmal Sweats: 2 Orientation: 0-Oriented Tacttile Disturbances: 2-Mild Itch/Numbness/Burn Auditory Disturbances: 0-None Visual Disturbances: 0-None Headache: 0-None Present CIWA-Ar Total Score: 9 BHS Progress Note (SOAP) Subjective: interrupted sleep, sweats, diarrhea Objective: 03/04/19 11:20 Vital Signs Temperature 98.0 F 03/04/19 09:10 Pulse Rate 85 03/04/19 09:10 Respiratory Rate 18 03/04/19 09:10 Blood Pressure 108/69 03/04/19 09:10 O2 Sat by Pulse Oximetry (%) 98 03/02/19 18:02 Laboratory Tests 03/02/19 03/02/19 03/02/19 07:40 07:40 12:59 WBC 4.5 RBC 3.49 L Hgb 9.4 L Hct 28.1 L D MCV 80.4 MCH 26.9 MCHC 33.4 RDW 19.2 H Plt Count 561 H D MPV 7.5 D Sodium 142 Potassium 4.5 Chloride 110 H Carbon Dioxide 27 Anion Gap 5 L BUN 12.4 Creatinine 0.8 Est GFR (CKD-EPI)AfAm 113.33 Est GFR (CKD-EPI)NonAf 97.78 Random Glucose 81 Calcium 8.6 Total Bilirubin 0.4 AST 11 L ALT 15 Alkaline Phosphatase 63 Total Protein 6.7 Albumin 3.3 L Urine Color Yellow Urine Appearance Clear Urine pH 5.5 D Ur Specific [place] 1.017 Urine Protein Negative Urine Glucose (UA) Negative Urine Ketones Negative Urine Blood Negative Urine Nitrite Negative Urine Bilirubin Negative Urine Urobilinogen 0.2 Ur Leukocyte Esterase Negative RPR Titer 03/03/19 03/03/19 05:40 06:00 WBC RBC Hgb Hct MCV MCH MCHC RDW Plt Count MPV Sodium Potassium Chloride Carbon Dioxide Anion Gap BUN Creatinine Est GFR (CKD-EPI)AfAm Est GFR (CKD-EPI)NonAf Random Glucose Calcium Total Bilirubin AST ALT Alkaline Phosphatase Total Protein Albumin Urine Color Urine Appearance Urine pH Ur Specific [place] Urine Protein Urine Glucose (UA) Urine Ketones Urine Blood Urine Nitrite Urine Bilirubin Urine Urobilinogen Ur Leukocyte Esterase RPR Titer Cancelled Nonreactive pt aox3 in nad ambulating Assessment: 03/04/19 11:22 withdrawal sx's lbp Plan: cont. detox increase fluids lidocaine patch d/c in am
[2019-03-04] MEDS ORDERED: PNEUMOC 13-VAL CONJ-DIP CRM/PF 0.5 ML DISP.SYRIN IM ONE (12:00)
[2019-03-04] MEDS ORDERED: LIDOCAINE PATCH REMOVAL MC SCH ×2 (22:00)
[2019-03-04] MEDS: THIAMINE HCL 100 MG TABLET (FP) PO SCH (22:32)
[2019-03-04] MEDS: LISINOPRIL 5 MG TABLET (FP) PO SCH (22:32)
[2019-03-05] MEDS ORDERED: chlordiazePOXIDE HCL 10 MG CAPSULE PO ONE (05:00)
[2019-03-05] MEDS: guaiFENesin 200 MG/10 ML 10 ML UNIT-DOSE CUPS PO SCH (05:20)
[2019-03-05 09:07] VITALS: BP 119/78; PULSE 75; TEMP 97
--- NOTE | 2019-03-05 12:51 | DS ---
[facility] Detox Discharge Summary Admission Date: 03/02/19 Discharge Date: 03/05/19 - History Present History: Alcohol Dependence, Cannabis Dependence Additional Comments: Pt is medically cleared and discharged today. Pt completed the detox protocol. Pt is encouraged to follow-up with an outpatient CD program and also to follow- up with his pmd. Pt verbalized understanding of the information given. Pt is AOX3 and in no acute respiratory distress. Pertinent Past History: h/o htn, asthma, copd, alcohol, and cannabis use disorder. - Physical Exam Results Vital Signs: Vital Signs Temperature 97.0 F L 03/05/19 09:07 Pulse Rate 75 03/05/19 09:07 Respiratory Rate 18 03/05/19 09:07 Blood Pressure 119/78 03/05/19 09:07 O2 Sat by Pulse Oximetry (%) 98 03/02/19 18:02 Vital Signs 03/05/19 03/05/19 05:55 09:07 Temperature 98.2 F 97.0 F L Pulse Rate 70 75 Respiratory 16 18 Rate Blood Pressure 112/63 119/78 Laboratory Last Values WBC 4.5 K/mm3 (4.0-10.0) 03/02/19 07:40 RBC 3.49 M/mm3 (4.00-5.60) L 03/02/19 07:40 Hgb 9.4 GM/dL (11.7-16.9) L 03/02/19 07:40 Hct 28.1 % (35.4-49) L D 03/02/19 07:40 MCV 80.4 fl (80-96) 03/02/19 07:40 MCH 26.9 pg (25.7-33.7) 03/02/19 07:40 MCHC 33.4 g/dl (32.0-35.9) 03/02/19 07:40 RDW 19.2 % (11.9-15.9) H 03/02/19 07:40 Plt Count 561 K/MM3 (134-434) H D 03/02/19 07:40 MPV 7.5 fl (7.5-11.1) D 03/02/19 07:40 Sodium 142 mmol/L (136-145) 03/02/19 07:40 Potassium 4.5 mmol/L (3.5-5.1) 03/02/19 07:40 Chloride 110 mmol/L (98-107) H 03/02/19 07:40 Carbon Dioxide 27 mmol/L (21-32) 03/02/19 07:40 Anion Gap 5 MMOL/L (8-16) L 03/02/19 07:40 BUN 12.4 mg/dL (7-18) 03/02/19 07:40 Creatinine 0.8 mg/dL (0.55-1.3) 03/02/19 07:40 Est GFR (CKD-EPI)AfAm 113.33 03/02/19 07:40 Est GFR (CKD-EPI)NonAf 97.78 03/02/19 07:40 Random Glucose 81 mg/dL (74-106) 03/02/19 07:40 Calcium 8.6 mg/dL (8.5-10.1) 03/02/19 07:40 Total Bilirubin 0.4 mg/dL (0.2-1) 03/02/19 07:40 AST 11 U/L (15-37) L 03/02/19 07:40 ALT 15 U/L (13-61) 03/02/19 07:40 Alkaline Phosphatase 63 U/L (45-117) 03/02/19 07:40 Total Protein 6.7 g/dl (6.4-8.2) 03/02/19 07:40 Albumin 3.3 g/dl (3.4-5.0) L 03/02/19 07:40 Urine Color Yellow 03/02/19 12:59 Urine Appearance Clear 03/02/19 12:59 Urine pH 5.5 (5.0-8.0) D 03/02/19 12:59 Ur Specific [place] 1.017 (1.010-1.035) 03/02/19 12:59 Urine Protein Negative (NEGATIVE) 03/02/19 12:59 Urine Glucose (UA) Negative (NEGATIVE) 03/02/19 12:59 Urine Ketones Negative (NEGATIVE) 03/02/19 12:59 Urine Blood Negative (NEGATIVE) 03/02/19 12:59 Urine Nitrite Negative (NEGATIVE) 03/02/19 12:59 Urine Bilirubin Negative (NEGATIVE) 03/02/19 12:59 Urine Urobilinogen 0.2 mg/dL (0.2-1.0) 03/02/19 12:59 Ur Leukocyte Esterase Negative (NEGATIVE) 03/02/19 12:59 RPR Titer Nonreactive (NONREACTIVE) 03/03/19 06:00 Labs noted. Pertinent Admission Physical Exam Findings: withdrawal symptoms. - Treatment Hospital Course: Detox Protocol Followed, Detoxed Safely, Responded well, Discharged Condition Good - Medication Discharge Medications: Ambulatory Orders NK [No Known Home Medication] 03/01/19 - Diagnosis (1) Alcohol dependence with uncomplicated withdrawal Status: Acute (2) GERD (gastroesophageal reflux disease) Status: Chronic Qualifiers: Esophagitis presence: without esophagitis Qualified Code(s): K21.9 - Gastro -esophageal reflux disease without esophagitis (3) HTN (hypertension) Status: Chronic Qualifiers: Hypertension type: essential hypertension Qualified Code(s): I10 - Essential (primary) hypertension (4) History of stomach cancer Status: Chronic (5) [place] dependence Status: Chronic (6) History of right hip replacement Status: Resolved - AMA Did Patient Leave Against Medical Advice: No
== END 2019-03-05 09:17 | disposition home or self-care (01) | DRG 775 ==
LOC: YASAS 14:22 → Y3N 03-02 01:35
PROVIDERS: ADMIT Allergy & Immunology; ATTEND Allergy & Immunology
PROC: HZ2ZZZZ Detoxification Services for Substance Abuse Treatment (ICD-10-PCS; principal; 2019-03-02)
DX: F10.230 Alcohol dependence with withdrawal, uncomplicated (principal); F10.220 Alcohol dependence with intoxication, uncomplicated; F12.20 Cannabis dependence, uncomplicated; F17.210 Nicotine dependence, cigarettes, uncomplicated; I10 Essential (primary) hypertension; K21.9 Gastro-esophageal reflux disease without esophagitis; M54.5 Low back pain; D64.9 Anemia, unspecified; J45.909 Unspecified asthma, uncomplicated; J44.9 Chronic obstructive pulmonary disease, unspecified; Z85.028 Personal history of other malignant neoplasm of stomach; R63.6 Underweight; R51 Headache; Z68.1 Body mass index [BMI] 19.9 or less, adult; Z96.641 Presence of right artificial hip joint; Z96.642 Presence of left artificial hip joint
CPT/HCPCS: 36415; 80053; 81003; 85027; 86593; 93005; 93010; 94640